=== PATIENT | female | born 1990 | race Caucasian/White ===

== ENCOUNTER 2023-04-07 07:50 | Emergency (ER) | payer SELFPAY ==
[2023-04-07 07:56] VITALS: BP 145/89; PULSE 128; RESP 24; TEMP 38.4; O2SAT 95; BMI 34.7
--- NOTE | 2023-04-07 08:04 | ED_ITS ---
HPI - General Adult General Chief complaint: Upper Respiratory Infection Stated complaint: SOB, VOMITING Time Seen by Provider: 04/07/23 07:54 Source: patient Mode of arrival: Wheelchair Limitations: no limitations History of Present Illness HPI narrative: Patient here with onset of vomiting and sore throat. Your children's also been sick with strep throat confirmed apparently. She is not currently on any antib iotics. 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 Symptoms started on Tuesday with a sore throat then she had aches and pains chills mild headache some cough. No purulent sputum. She has also had some nausea and vomiting but no diarrhea she has been running a fever. She did receive the influenza vaccine and initial COVID vaccinations but no booster. She is otherwise healthy. However she was admitted when she was she believes, to the hospital for pneumonia for 5 days. Related Data Allergies Allergy/AdvReac Type Severity Reaction Status Date / Time No Known Drug Allergies Allergy Verified 04/07/23 07:56 [facility] Social History Smoking status: Never smoker Exam Narrative Exam Narrative: Awake alert looks like she feels uncomfortable but not toxic or septic in appearance. Mentation cognition are completely normal. Skin there is good perfusion with no cyanosis no clamminess. Her lungs are completely clear no wheeze rales rhonchi. Heart sounds are normal. She does have a bronchitic type sounding cough but no bronchospasm. No rhinitis. She has no nuchal rigidity or meningeal irritation. Extremities show no evidence of DVT phlebitis or edema. Constitutional Vital Signs, click to edit/add: Last Vital Signs Temp 101.1 F H 04/07/23 08:54 Pulse 128 H 04/07/23 07:56 Resp 24 04/07/23 07:56 BP 145/89 H 04/07/23 07:56 Pulse Ox 96 04/07/23 08:24 O2 Del Method Room Air 04/07/23 08:24 Course Vital Signs Vital signs: Vital Signs Temperature 101.1 F H 04/07/23 07:56 Pulse Rate 128 H 04/07/23 07:56 Respiratory Rate 24 04/07/23 07:56 Blood Pressure 145/89 H 04/07/23 07:56 Pulse Oximetry 95 04/07/23 07:56 Oxygen Delivery Method Room Air 04/07/23 07:56 Temperature 101.1 F H 04/07/23 08:54 Pulse Rate 128 H 04/07/23 07:56 Respiratory Rate 24 04/07/23 07:56 Blood Pressure 145/89 H 04/07/23 07:56 Pulse Oximetry 96 04/07/23 08:24 Oxygen Delivery Method Room Air 04/07/23 08:24 Medical Decision Making MDM Narrative Medical decision making narrative: Patient's influenza testing is negative. Rapid strep is negative. Chest x-ray does not show any abnormalities. Her symptoms are consistent with a viral upper respiratory infection. I strongly recommend that she consider home COVID testing since she has other children at home. She did get the IV fluids here and felt symptomatically improved. I will also put her on clear fluids and prescribe Zofran for any nausea. Lab Data Labs: Lab Results 04/07/23 04/07/23 Range/Units 08:12 08:14 WBC 9.2 (4.0-11.0) 10^3/uL RBC 4.43 (4.20-5.40) 10^6/uL Hgb 12.6 (12.0-16.0) g/dL Hct 39.5 (36.0-48.0) % MCV 89.2 (81.0-99.0) fL MCH 28.4 (26.7-34.0) pg MCHC 31.9 (29.9-35.2) g/dL RDW 12.2 (11.0-15.0) % Plt Count 210 (150-450) 10^3/uL MPV 10.6 (9.5-13.5) fL Neut % (Auto) 84.5 H (43.0-75.0) % Lymph % (Auto) 6.8 L (20.5-60.0) % [place] % (Auto) 8.1 (1.7-12.0) % Eos % (Auto) 0.0 L (0.9-7.0) % Baso % (Auto) 0.2 (0.2-2.0) % Neut # (Auto) 7.8 H (1.4-6.5) 10^3/uL Lymph # (Auto) 0.6 L (1.2-3.8) 10^3/uL [place] # (Auto) 0.7 (0.3-0.8) 10^3/uL Eos # (Auto) 0.0 (0.0-0.7) 10^3/uL Baso # (Auto) 0.0 (0.0-0.1) 10^3/uL Abs Immat Gran (auto) 0.04 H (0.00-0.03) 10^3/uL Imm/Tot Granulo (auto) 0.4 (0.0-0.5) % Sodium 136 (136-145) mmol/L Potassium 3.4 L (3.5-5.1) mmol/L Chloride 98 (98-107) mmol/L Carbon Dioxide 29.8 (21.0-32.0) mmol/L Anion Gap 11.6 BUN 11.0 (7.0-18.0) mg/dL Creatinine 0.77 (0.55-1.02) mg/dL Est GFR ( Amer) >60 (>=60) Est GFR (Non-Af Amer) >60 (>=60) BUN/Creatinine Ratio 14.3 Glucose 151 H (74-106) mg/dL Calcium 8.7 (8.5-10.1) mg/dL Influenza Type A Ag Negative Influenza Type B Ag Negative Streptococcus Screen Negative Discharge Plan Discharge Chief Complaint: Upper Respiratory Infection Clinical Impression: Upper respiratory infection Patient Disposition: Home, Self-Care Time of Disposition Decision: 09:28 Additional Instructions: Consider home testing for COVID/Zofran for nausea/clear fluids for 24 hours, then slowly advancing diet. Off work Tuesday Stand Alone Forms: Portal Instructions Referrals: PATRICIA [Other] - 1 week
--- NOTE | 2023-04-07 08:12 | XR_ITS ---
The [address] [address] Patient Name: ANN-MARIE HANDY MRN: [id number] date: 1990 Sex: F Assigned Patient Location: ER Current Patient Location: ER Accession/Order Number: [id number] Exam Date: 04/07/2023 08:25 Report Date: 04/07/2023 08:57 At the request of: ELOINA GUARDADO Procedure: XR chest 1V EXAM: XR chest 1V HISTORY: Cough. COMPARISON: 09/01/2016 FINDINGS: There is a poor inspiratory volume with crowding of the bronchovascular markings bilaterally. The heart is not significantly enlarged. There is prominence of the interstitial markings. No significant pleural fluid collection is observed. There is no evidence of a consolidated infiltrate or pneumothorax. XR/XR chest 1V IMPRESSION: No evidence of an acute cardiopulmonary abnormality. Electronically authenticated by: APOLONIA CARLOS Date: 04/07/2023 08:57
[2023-04-07 08:24] VITALS: O2SAT 96
[2023-04-07 08:24] LABS: Basophils Percent Auto 0.2 % (0.2-2.0); Hematocrit 39.5 % (36.0-48.0); Hemoglobin 12.6 g/dL (12.0-16.0); Immature Granulocytes Abs Auto 0.04 10^3/uL (0.00-0.03); Immature Granulocytes Pct Auto 0.4 % (0.0-0.5); Lymphocytes Absolute Auto 0.6 10^3/uL (1.2-3.8); Lymphocytes Percent Auto 6.8 % (20.5-60.0); Mean Corpuscular HGB Conc 31.9 g/dL (29.9-35.2); Mean Corpuscular Hemoglobin 28.4 pg (26.7-34.0); Mean Corpuscular Volume 89.2 fL (81.0-99.0); Mean Platelet Volume 10.6 fL (9.5-13.5); Monocytes Absolute Auto 0.7 10^3/uL (0.3-0.8); Monocytes Percent Auto 8.1 % (1.7-12.0); Neutrophils Absolute Auto 7.8 10^3/uL (1.4-6.5); Neutrophils Percent Auto 84.5 % (43.0-75.0); Platelet Count 210 10^3/uL (150-450); Red Blood Count 4.43 10^6/uL (4.20-5.40); Red Cell Distribution Width 12.2 % (11.0-15.0); White Blood Count 9.2 10^3/uL (4.0-11.0)
[2023-04-07 08:29] LABS: Anion Gap 11.6; BUN Creatinine Ratio 14.3; Calcium 8.7 mg/dL (8.5-10.1); Carbon Dioxide 29.8 mmol/L (21.0-32.0); Chloride 98 mmol/L (98-107); Estimated GFR (African America >60 (>=60); Estimated GFR (Non-African Ame >60 (>=60); Glucose 151 mg/dL (74-106); Potassium 3.4 mmol/L (3.5-5.1); Sodium 136 mmol/L (136-145)
[2023-04-07] MEDS: ONDANSETRON PF 4 MG/2 ML VIAL IV (08:29)
[2023-04-07] MEDS: 0.9 % SODIUM CHLORIDE 1,000 ML 999 ML IV (08:29)
[2023-04-07 08:53] VITALS: TEMP 38.4
[2023-04-07] MEDS: ACETAMINOPHEN 500 MG TABLET 1000 MG PO (08:53)
[2023-04-07 08:54] VITALS: TEMP 38.4
[2023-04-07] MEDS: IBUPROFEN 600 MG TABLET PO (08:54)
[2023-04-07 09:00] LABS: Influenza Virus A Antigen Negative; Influenza Virus B Antigen Negative; Internal Control Within Normal Limits; Strep A Antigen Screen Negative
[2023-04-07 09:23] VITALS: PULSE 124; O2SAT 95
[2023-04-07 09:46] VITALS: PULSE 118; RESP 20; TEMP 37.7; O2SAT 96
== END 2023-04-07 09:54 | disposition home or self-care (01) ==
PROVIDERS: Emergency Provider Emergency Medicine Emergency Medical Services
DX: J06.9 Acute upper respiratory infection, unspecified (principal)
CPT/HCPCS: 36415; 71045; 80048; 85025; 87070; 87804; 87880; 96361; 96374; 99284

== ENCOUNTER 2023-04-09 13:41 | Emergency (ER) | payer SELFPAY ==
--- OUTSIDE RECORDS SUMMARY | 2023-04-09 13:47 | XMS_ITS | CCD ---
Author Name Unknown Address [address] [place] [address] Organization [facility] Care Team Providers Care Nutrition Aides Teacher Name Role Phone JAIDEN TOTH Admitting Unavailable JAIDEN TOTH Attending Unavailable JOSE RAMON HORN Consulting Unavailable JAIDEN TOTH Consulting Unavailable JAIDEN TOTH Admitting Unavailable JAIDEN TOTH Attending Unavailable CRISTIAN HINOJOSA Primary Care Unavailable JAIDEN TOTH Consulting Unavailable JAIDEN TOTH Admitting Unavailable JAIDEN TOTH Attending Unavailable JAIDEN TOTH Consulting Unavailable JAIDEN TOTH Admitting Unavailable JAIDEN TOTH Attending Unavailable JAIDEN TOTH Primary Care Unavailable JOSE RAMON HORN Consulting Unavailable JAIDEN TOTH Consulting Unavailable JAIDEN TOTH Admitting Unavailable JAIDEN TOTH Attending Unavailable JAIDEN TOTH Consulting Unavailable CELSA MINER Consulting Unavailable JAIDEN TOTH Procedure Practitioner Unavailab JAIDEN Waite Admitting Unavailable JAIDEN TOTH Attending Unavailable CRISTIAN HINOJOSA Primary Care Unavailable JAIDEN TOTH Admitting Unavailable JAIDEN TOTH Attending Unavailable CRISTIAN HINOJOSA Primary Care Unavailable JAIDEN TOTH Admitting Unavailable JAIDEN TOTH Attending Unavailable CRISTIAN HINOJOSA [facility] Care Unavailable JOSE RAMON HORN Consulting Unavailable JAIDEN TOTH Consulting Unavailable CRISTIAN HINOJOSA Primary Care Unavailable YOLANDA HUI Admitting UnavailYOLANDA Alvarez Attending UnavailYOLANDA Alvarez Consulting Unavailedison e JAIDEN TOTH Admitting Unavailable JAIDEN TOTH Attending Unavailable JAIDEN TOTH Consulting Unavailable JAIDEN TOTH Admitting Unavailable JAIDEN TOTH Attending Unavailable JAIDEN TOTH Primary Care Unavailable JAIDEN TOTH Consulting Unavailable APOLONIA BARNETT Consulting Unavailable Cecilia Perez Unavailable Unavailable Primary Care Provider Unavailabl e UNKNOWN, PROVIDER Referring Unavailable Allergies Allergy Classification Reported Allergen(s) Allergy Type Date of Onset Reaction(s) Facility (1 source) Penicillins Drug allergy (disorder) 09-15-2012 [facility] Repository (2 sources) Penicillin G Drug Allergy [facility] Other Medications Current Medications Medication Drug Class(es) Dates Sig (Normalized) Sig (Original) azithromycin 250 mg oral tablet (1 source) Macrolide Antimicrobial Start: 01-27-2022 Azithromycin 250 MG 2 tablet on the first day, then 1 tablet daily for 4 days Orally Once a day for 5 day(s) Jan, Active fluconazole 50 mg oral tablet (1 source) Azole Antifungal Start: 04-29-2021 Diflucan 50 MG 1 tablet Orally as directed Take 1 tablet p.o. at onset of symptoms, repeat in 7 days. Apr, Active nitrofurantoin, macrocrystals 25 mg / nitrofurantoin, monohydrate 75 mg oral capsule (1 source) Nitrofuran Antibacterial Start: 04-29-2021 take 1 capsule by mouth every twelve hours Macrobid 100 MG 1 cap(s) Orally bid for 5 day(s) Apr, Active phenazopyridine hydrochloride 200 mg oral tablet (1 source) Start: 04-29-2021 take 1 tablet by mouth every eight hours Pyridium 200 MG 1 tablet after meals Orally Three times a day for 2 day(s) Apr, Active predniSONE 20 mg oral tablet (1 source) Start: 01-27-2022 take 1 tablet by mouth every twelve hours predniSONE 20 MG 1 tablet Orally 2 times a day for 5 day(s) Jan, Active Completed/Discontinued Medications Medication Drug Class(es) Dates Sig (Normalized) Sig (Original) albuterol 0.83 mg/ml inhalation solution (1 source) beta2-Adrenergic Agonist Start: 12-08-2018 Albuterol Sulfate (2.5 MG/3ML) 0.083% 3 ml as needed Inhalation Three times a day Dec, Not-Taking cefdinir 300 mg oral capsule (1 source) Cephalosporin Antibacterial Start: 12-08-2018 take 1 capsule by mouth every twelve hours Cefdinir 300 MG 1 capsule Orally every 12 hrs for 7 days Dec, Not-Taking cetirizine hydrochloride 10 mg oral tablet (1 source) Histamine-1 Receptor Antagonist Start: 11-09-2019 take 1 tablet by mouth every twenty-four hours Cetirizine HCl 10 MG 1 tablet Orally Once a day for 30 day(s) Nov, Not-Taking fluticasone propionate 0.05 mg/actuat metered dose nasal spray (2 sources) Corticosteroid Start: 12-08-2018 take 1 spray(s) nasal route once daily Fluticasone Propionate 50 MCG/ACT 1 spray in each nostril Nasally Once a day for 30 day(s) Nov, Not-Taking methylPREDNISolone 4 mg oral tablet (2 sources) Corticosteroid Start: 12-08-2018 Medrol (Roman) 4 MG half of daily dose in the morning with food and the rest at night with food Orally Nov, Not-Taking TB Test (2 sources) Start: 09-10-2014 TB Test Sep, 0.5 mL Problems Active Problems Problem Classification Problem Date Documented Date Episodic/Chronic Administrative/social admission (2 sources) Encounter for pre-employment examination; Translations: [Encounter for pre-employment examination] Onset: 04-05-2022 Episodic Anxiety disorders (1 source) Anxiety disorder, unspecified; Translations: [ANXIETY DISORDER UNSPECIFIED] Onset: 10-30-2018 Chronic Asthma (2 sources) Acute exacerbation of asthma; Translations: [Acute asthma exacerbation] Chronic Influenza (1 source) Influenza due to unidentified influenza virus with other respiratory manifestations; Translations: [FLU D/T UNIDENT FLU VIR RESP MANIF] Onset: 03-22-2019 Episodic Menstrual disorders (4 sources) Secondary amenorrhea; Translations: [SECONDARY AMENORRHEA] Onset: 03-13-2019 Chronic Mood disorders (1 source) Major depressive disorder, single episode, unspecified; Translations: [KAMARI DEPRESS D/O SINGLE EPIS UNS] Onset: 10-30-2018 Nausea and vomiting (1 source) Nausea with vomiting, unspecified; Translations: [NAUSEA WITH VOMITING UNSPECIFIED] Onset: 03-22-2019 Episodic Other complications of (4 sources) Other specified related conditions, first trimester; Translations: [OTH SPEC PREG RELATED COND 1ST TRI] Onset: 03-20-2019 Episodic Other complications of (1 source) Other specified related conditions, unspecified trimester; Translations: [OTH SPEC PREG RELATED COND UNS TRI] Onset: 04-26-2019 Episodic Other female genital disorders (1 source) Other specified noninflammatory disorders of vagina; Translations: [OTH SPEC NONINFLAMMATORY D/O VAGINA] Onset: 04-26-2019 Episodic Other and delivery including normal (6 sources) Encounter for supervision of normal , unspecified, second trimester; Translations: [Encounter for supervision of normal , unspecified, first trimester] Onset: 10-30-2018 Episodic Other screening for suspected conditions (not mental disorders or infectious disease) (4 sources) Encounter for screening for malignant neoplasm of cervix; Translations: [ENC SCREENING MALIG NEOPLASM CERV] Onset: 04-25-2019 Episodic Other upper respiratory infections (2 sources) Acute pharyngitis, unspecified; Translations: [Streptococcal pharyngitis] Episodic Residual codes; unclassified (1 source) 12 weeks gestation of ; Translations: [12 WEEKS GESTATION OF ] Onset: 03-22-2019 Residual codes; unclassified (1 source) 31 weeks gestation of ; Translations: [31 WEEKS GESTATION OF ] Onset: 09-07-2018 Residual codes; unclassified (1 source) 10 weeks gestation of ; Translations: [10 WEEKS GESTATION OF ] Onset: 03-15-2019 Residual codes; unclassified (1 source) 38 weeks gestation of ; Translations: [38 WEEKS GESTATION OF ] Onset: 10-30-2018 Past or Other Problems Problem Classification Problem Date Documented Da te Episodic/Chronic Abdominal pain (1 source) Unspecified abdominal pain; Translations: [UNSPECIFIED ABDOMINAL PAIN] Onset: 09-07-2018 Episodic Diabetes or abnormal glucose tolerance complicating ; childbirth; or the puerperium (8 sources) Gestational diabetes mellitus in , unspecified control; Translations: [Gestational diabetes mellitus in childbirth, unspecified control] Onset: 09-07-2018 Episodic Genitourinary symptoms and ill-defined conditions (2 sources) Dysuria; Translations: [Hematuria, unspecified] Onset: 04-29-2021 Resolved: 04-29-2021 Episodic OB-related trauma to perineum and vulva (1 source) First degree perineal laceration during delivery; Translations: [FIRST DEG PERINEAL LAC DUR DELIV] Onset: 10-30-2018 Episodic Other complications of ; puerperium affecting management of mother (1 source) Diseases of the respiratory system complicating childbirth; Translations: [DISEASES RESP SYS COMP CHILDBIRTH] Onset: 10-30-2018 Episodic Other complications of ; puerperium affecting management of mother (1 source) Other mental disorders complicating childbirth; Translations: [OTH MENTAL D/O COMP CHILDBIRTH] Onset: 10-30-2018 Episodic Other complications of (1 source) Other mental disorders complicating , third trimester; Translations: [OTH MENTAL D/O COMP PREG THIRD TRI] Onset: 09-07-2018 Episodic Other complications of (4 sources) Other specified diseases and conditions complicating , childbirth and the puerperium; Translations: [OTH DZ COMP PREG CHILDBIRTH PUERPER] Onset: 09-02-2018 Episodic Unclassified (1 source) Contact with and (suspected) exposure to covid-19 Z20.822 Urinary tract infections (1 source) Urinary tract infection, site not specified Onset: 04-29-2021 Resolved: 04-29-2021 Episodic Results Test Name Value Interpretation Reference Range Facility VZ Immunityon 04-07-2022 VZ Immunity 2.16 Normal >1.09 [facility] Comment on above: Result Comment: Interpretation: IMMUNE Reference Range: <0.91 Not Immune 0.91-1.09 Equivocal >1.09 Immune Performed By: #### V ZI #### [facility] [address] [place] [address] Ear Flap Binder: Matias Jones MD COVID/FLU RT-PCRon 2 SARS-CoV-2 (COVID-19) RNA TELLO+probe Ql (Unsp spec) Negative [facility] Other COVID/FLU RT-PCR Negative [facility] Other Quick Strepon 01-27-2022 S. pyogenes Org specific cx Ql (Throat) Positive [facility] Other Quick Strep [facility] Other Urinalysis - AUTOMATEDon Appearance (U) clear [facility] Other Bilirubin Ql (U) Negative [facility] Other Color (U) yellow [facility] Other Glucose Ql (U) Negative [facility] Other Hemoglobin Ql (U) trace [facility] Other Ketones Ql (U) Negative [facility] Other Leukocyte esterase Test strip Ql (U) small [facility] Other Nitrite Ql (U) Negative [facility] Other pH (U) 7.5 [pH] [facility] Other Protein Ql (U) Negative [facility] Other Specific gravity (U) [Rel density] 1.025 [facility] Other Urobilinogen (U) [Mass/Vol] 0.2 mg/dL [facility] Other Urinalysis - AUTOMATED [facility] Other Urine Cultureon 04-29-2021 Bacteria identified Cx Nom (U) Reason for Exam Dysuria Urine >100,000 colonies/ml mixed bacterial skin contaminants 2 Days PERFORMED BY: [place] [address] PATHOLOGIST CARE TEAM ASSISTANT JU BAR M.D[facility] Comment on above: Performed By: #### C UU #### [address] US PREG CERVICAL LENGTHon US PREG CERVICAL LENGTH PROCEDURE: US PREG ANATOMY SINGLE, US PREG CERVICAL LENGTH, 06/01/2019 2:56 PM EDT. INDICATIONS: Second trimester . anatomic assessment. Transvaginal evaluation of cervix and . 4 para 3 COMPARISON: 03/13/2019 FINDINGS: EVALUATION Number of Fetuses: 1 Presentation: Cephalic Heart Rate: 152 bpm. Placenta: Anterior placenta, no previa or abruption, inferior margin 7.6 cm above the cervical os. Placenta cord insertion appropriate Amniotic fluid volume: Appropriate CERVIX LENGTH: 4.4 cm by transvaginal assessment, closed GESTATIONAL AGE: Provided gestational age: 22 weeks 0 days Provided MOUNA: 10/05/2019 Sonographic gestational age: 22 weeks 2 days +/- 1 week 4 days Sonographic MOUNA: 10/03/2019 BIOMETRY: BPD: 5.3 cm, 22 weeks 0 days, 44 percentile. HC: 19.9 cm, 22 weeks 0 days, 39 percentile. AC: 17.9 cm, 22 weeks 5 days, 68 percentile. FL: 3.8 cm, 22 weeks 1 day, 46 percentile. Estimated weight 505 g +/- 76 g. 67 percentile Growth ratios: Normal CI: 74.5 FL/BPD: 72.6 HC/AC: 1.11 FL/AC: 21.3 FL/HC: 19.2 ANATOMY: HEAD, FACE, NECK: Lateral ventricle: Normal Appearance Choroid plexus: Normal Appearance Midline falx: Normal Appearance Cavum: Normal Appearance Cerebellum: Normal Appearance Cisterna Magna: Normal Appearance Facial features: Normal Appearance CHEST: 4 chamber heart: Normal Appearance LVOT/RVOT: Normal Appearance Diaphragm: Normal appearance ABDOMEN: Stomach: Normal Appearance Abdominal situs: Normal Appearance Kidneys: Normal Appearance Bladder: Normal Appearance Cord insertion: Normal Appearance Cord: 3 vessels Spine: Normal Appearance EXTREMITIES: Lower Extremities: Normal Appearance Upper Extremities: Normal Appearance MATERNAL FINDINGS: No maternal adnexal abnormality. IMPRESSION: 1. Living intrauterine , cephalic presentation. 2. Composite sonographic age 22 weeks 2 days +/- 1 week 4 days. 3. Estimated weight 504 g, 67 percentile, growth ratios normal. 4. No anatomic abnormality is evident. 5. 4.6 cm transvaginal cervical length, closed. Electronically authenticated by: APOLONIA BARNETT Date: 2019-06-01 16:18 Normal [facility] PAP ACOG PANEL 3: 21 to 29on 05-01-2019 Age Gdln ACOG Testing - Normal [facility] Comment on above: Performed By: #### U CHLOE THOMAS #### [facility] [address] [address] Kellen Moyer Chlamydia, Nuc. Acid Amp Negative Normal Negative [facility] Comment on above: Result Comment: Perf ormed at: =G Performed By: #### U ACSIND, UMICRO #### [facility] [address] [place] [address] Kellen Moeyr DIAGNOSIS: Comment Abnormal [facility] Comment on above: Result Comment: EPIT HELIAL CELL ABNORMALITY. ATYPICAL SQUAMOUS CELLS OF UNDETERMINED SIGNIFICANCE (ASC-US). Performed at: WB Performed By: #### U WILLIAM, UMICRO #### [facility] [address] [place] [address] Comfort Electronically signed by: Comment Normal [facility] Comment on above: Result Comment: Barron Liu MD, Pathologist Performed at: WB Performed By: #### U WILLIAM, UMICRO #### [facility] [address] [place], [place] [address] Gonococcus, Nuc. Acid Amp Negative Normal Negative [facility] Comment on above: Result Comment: Perf ormed at: =G Performed By: #### U WILLIAM, UMICRO #### [facility] [address] [place], [place] [address] HPV Aptima Negative Normal Negative [facility] Comment on above: Result Comment: This nucleic acid amplification test detects fourteen high-risk HPV types (16,18,31,33,35,39,45,51,52,56,58,59,66,68) without differentiation. Performed By: #### U ACSSARIKA, UMICRO #### [facility] [address] [place] [address] Comfort Methodology: Comment Normal [facility] Comment on above: Result Comment: This liquid based ThinPrep(R) pap test was screened with the use of an image guided system. Performed at: WB Performed By: #### U ACSSARIKA, UMICRO #### [facility] [address] [place], [place] [address] Note: Comment Normal [facility] Comment on above: Result Comment: The Pap smear is a screening test designed to aid in the detection of premalignant and malignant conditions of the uterine cervix. It is not a diagnostic procedure and should not be used as the sole means of detecting cervical cancer. Both false-positive and false-negative reports do occur. . Performed at: WB Performed By: #### U ACSSARIKA, UMICRO #### [facility] [address] [address] Kellen Moyer Pathologist Provided ICD10 Comment Normal [facility] Comment on above: Result Comment: [id number] Performed at: WB Performed By: #### U ACSSARIKA, UMICRO #### [facility] [address] [address] Kellen Moyer Performed by: Comment Normal [facility] Comment on above: Result Comment: Nieves Cameron, Marketing Communications Coordinator (ASCP) Performed at: WB Performed By: #### U ACSSARIKA UMICRO #### [facility] [address] [address] Kellen Moyer Reflex Criteria: Comment Normal [facility] Comment on above: Result Comment: See below for HPV testing results. . Performed at: WB Performed By: #### U ACSSARIKA UMICRO #### [facility] [address] [address] Kellen Moyer Specimen adequacy: Comment Normal [facility] Comment on above: Result Comment: Sati sfactory for evaluation. Endocervical and/or squamous metaplastic cells (endocervical component) are present. Areas of partially obscuring inflammatory exudate are present. Performed at: WB Performed By: #### U ACSSARIKA UMICRO #### [facility] [address] [address] Kellen Moyer . . Normal [facility] Comment on above: Result Comment: Perf ormed at: WB Performed By: #### U ACSSARIKA, UMICRO #### [facility] [address] [address] Kellenrachel Moyer VAGINITIS/VAGINOSIS DNA PROB [place] 04-27-2019 Kelsey species Negative Normal Negative [facility] Comment on above: Performed By: #### U ACSSARIKA UMICRO #### [facility] [address] [address] Kellenrachel Moyer Gardnerella vaginalis Positive Abnormal Negative [facility] Comment on above: Performed By: #### U ACSSARIKA UMICRO #### [facility] [address] [place] [address] Kellen Comfort Trichomonas vaginalis Negative Normal Negative [facility] Comment on above: Performed By: #### U CHLOE THOMAS #### [facility] [address] [place] [address] Kellen Comfort CULTURE URINEon 03-21-2019 CULTURE URINE Culture Observations : Moderate growth of mixed genital juan.No potential pathogens seen. Normal [facility] Comment on above: Performed By: #### U CHLOE THOMAS #### [facility] [address] [place] [address] Kellen Comfort ER URINE PROFILEon 0 Bilirubin [Mass/Vol] Negative Normal NEGATIVE [facility] Comment on above: Performed By: #### CHLOE BOTELLO #### [facility] [address] [place] [address] Kellen Comfort BLOOD Negative Normal NEGATIVE [facility] Comment on above: Performed By: #### CHLOE BOTELLO #### [facility] [address] [place] [address] Kellen Comfort Clarity (U) CLEAR Normal [facility] Comment on above: Performed By: #### CHLOE BOTELLO #### [facility] [address] [place] [address] Kellen Comfort Color (U) LT. YELLOW Normal YELLOW [facility] Comment on above: Performed By: #### U CHLOE THOMAS #### [facility] [address] [place] [address] Kellen Comfort ERUAHD A micrscopic examination will be performed if indicated. Normal [facility] Comment on above: Performed By: #### U CHLOE THOMAS #### [facility] [address] [place] [address] Kellen Comfort Glucose [Mass/Vol] Negative Normal NEGATIVE [facility] Comment on above: Performed By: #### U CHLOE THOMAS #### [facility] [address] [place] [address] Kellen Comfort Ketones Ql (U) TRACE Normal NEGATIVE [facility] Comment on above: Performed By: #### U ACSSARIKA UMICRO #### [facility] [address] [address] Kellen Comfort Nitrite Ql (U) Negative Normal NEGATIVE [facility] Comment on above: Performed By: #### U ACSSARIKA, UMICRO #### [facility] [address] [address] Kellen Comfort pH (Bld) 6.0 Normal 5-9 [facility] Comment on above: Performed By: #### U ACSSARIKA, UMICRO #### [facility] [address] [address] Kellen Comfort Protein (U) [Mass/Vol] Negative Normal [facility] Comment on above: Performed By: #### U ACSSARIKA UMICRO #### [facility] [address] [place] [address] Kellen Comfort SPEC GRAVITY >=1.030 Normal 1.005-<=1.025 [facility] Comment on above: Performed By: #### U ACSSARIKA UMICRO #### [facility] [address] [address] Kellen Moyer UR MICRO IND INDICATED Normal [facility] Comment on above: Performed By: #### U ACSSARIKA UMICRO #### [facility] [address] [address] Kellenrachel Moyer Urobilinogen Qn (U) 0.2 EU/dl Normal [facility] Comment on above: Performed By: #### U ACSSARIKA, UMICRO #### [facility] [address] [address] Kellen Comfort WBC (Bld) [#/Vol] SMALL Normal NEGATIVE [facility] Comment on above: Performed By: #### U ACSSARIKA, UMICRO #### [facility] [address] [address] Kellen Moyer URINE MICROSCOPIC ONLYon AMORPHOUS CRYSTALS FEW Normal [facility] Comment on above: Performed By: #### U ACSIND, UMICRO #### [facility] [address] [id number] Kellen Comfort Bacteria LM.HPF (Urine sed) [#/Area] MODERATE Normal NONE SEEN [facility] Comment on above: Performed By: #### U ACSSARIKA UMICRO #### [facility] [address] [id number] Kellen Comfort CAST NONE SEEN Normal NONE SEEN [facility] Comment on above: Performed By: #### U ACSSARIKA UMICRO #### [facility] [address] [address] Kellen Comfort Crystals LM Nom (Urine sed) SEEN Normal NONE SEEN [facility] Comment on above: Performed By: #### U ACSSARIKA UMICRO #### [facility] [address] [place] [address] Kellen Comfort CULTURE INDICATED Normal [facility] Comment on above: Performed By: #### U WILLIAM UMICRO #### [facility] [address] [place] [address] Kellen Comfort Epithelial cells LM.HPF (Urine sed) [#/Area] MODERATE Normal [facility] Comment on above: Performed By: #### U WILLIAM UMICRO #### [facility] [address] [place] [address] Kellen Comfort MUCOUS TRACE Normal NONE SEEN [facility] Comment on above: Performed By: #### U ACSSARIKA UMICRO #### [facility] [address] [place], [place] [id number] Kellen Comfort RBC (U) [#/Vol] 5-10 Normal 0-2 [facility] Comment on above: Performed By: #### U ACSSARIKA UMICRO #### [facility] [address] [place], [place] [id number] Kellen Comfort WBC (Bld) [#/Vol] 50-75 Normal NONE SEEN [facility] Comment on above: Performed By: #### U ACSSARIKA UMICRO #### [facility] [address] [place], [place] [id number] Kellen Comfort CULTURE THROATon 03-20-2019 CULTURE THROAT Culture Observations : Normal respiratory juan Normal [facility] Comment on above: Performed By: #### U WILLIAM UMICRO #### [facility] [address] [place] [address] Kellen Moyer INFLUENZA A AND B AGon 03-20 INFLUBNEGH SEE BELOW Normal [facility] Comment on above: Result Comment: Nega tive for Flu B protein antigen. Infection due to Flu B cannot be ruled out. Flu B antigen in the sample may be below the detection limit of the test. Performed By: #### U WILLIAM UMICRO #### [facility] [address] [place] [address] Kellen Moyer INFLUENZA A AG Positive Normal NEGATIVE SEE COMMENT [facility] Comment on above: Performed By: #### U WILLIAM UMICRO #### [facility] [address] [place] [address] Kellen Moyer INFLUENZA B AG Negative Normal NEGATIVE SEE COMMENT [facility] Comment on above: Performed By: #### U WILLIAM UMICRO #### [facility] [address] [place] [address] Kellen Moyer INFLUPOSH SEE BELOW Normal [facility] Comment on above: Result Comment: NOTE : Live attenuated influenzae vaccine viruses can cause a positive result for a rapid influenza diagnostic test if administered up to 7 days prior to rapid testing. Performed By: #### U WILLIAM UMICRO #### [facility] [address] [place] [address] Kellen Moyer INTERNAL CONTROLS Within Normal Limits Normal Wi thin Normal Limits [facility] Comment on above: Performed By: #### U WILLIAM UMICRO #### [facility] [address] [place] [address] Kellen Moyer STREPT SCREENon 03-20-2019 STREP SCREEN A Negative Normal NEGATIVE [facility] Comment on above: Performed By: #### U ACSSARIKA UMICRO #### [facility] [address] [place] [address] Kellen Moyer US PREG <14 WKSon 03-13-2019 US PREG <14 WKS Patient: ANN-MARIE HANDY Exam Date: 03/13/2019 : 1990 Gender:F Ordering : DR. JAIDEN TOTH . Admission #: [id number] Family : Order #: [id number] CLICK HERE TO VIEW EXAM RADIOLOGY REPORT PROCEDURE: ULTRASOUND < 14 WEEKS COMPARISON: None. INDICATIONS: Secondary physiologic amenorrhea; 10w4d single TECHNIQUE: Transabdominal sonographic examination for obstetrical and evaluation. FINDINGS: GESTATIONAL SAC: Present and normal appearing. POLE: Present and normal appearing. YOLK SAC: Present. CARDIAC ACTIVITY: Present. UTERUS: Normal. OVARIES: Right: Normal. Left: Normal. CERVIX: 4.4 cm in length. Closed. CUL-DE-SAC: Normal. OTHER: None. AGE BY LMP: 10 weeks, 4 days MOUNA BY LMP: October 05, 2019 AGE BY US CRL: 11 weeks, 0 days MOUNA BY US CRL: October 02, 2019 CONCLUSION: 1. Single live intrauterine . Dictated by: Jose Ramon Horn M.D. on 03/13/2019 at 10:10 Approved by: Jose Ramon Horn M.D. on 03/13/2019 at 10:13 Normal [facility] CBC AUTO DIFFon 10-19-2018 Basophils (Bld) [#/Vol] 0.0 103/ul Normal 0.0-0.1 [facility] Comment on above: Performed By: #### U ACSSARIKA [facility] #### [facility] [address], [place] [address] Kellen Comfort Basophils/100 WBC (Bld) 0.3 % Normal 0.2-2.0 [facility] Comment on above: Performed By: #### U ACSRENE BAUMICRO #### [facility] [address], [place] [address] Kellen Comfort Eosinophils (Bld) [#/Vol] 0.1 103/ul Normal 0.0-0.7 [facility] Comment on above: Performed By: #### U [facility]SSARIKA [facility] #### [facility] [address], [place] [address] Kellen Comfort Eosinophils/100 WBC (Bld) 1.1 % Normal 0.9-7.0 [facility] Comment on above: Performed By: #### CHLOE BOTELLO #### [facility] [address] [place] [address] Kellen Comfort Erythrocyte distribution width (RBC) [Ratio] 11.9 % Normal 11.0-15.0 [facility] Comment on above: Performed By: #### CHLOE BOTELLO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 04-05-2022 End: 04-05-2022 Subsequent hospital visit by physician [facility] Start: 01-27-2022 End: 01-27-2022 ambulatory Cecilia Ana Other [facility] Other Start: 01-27-2022 Office outpatient vi sit 25 minutes Cecilia Ana [facility] Start: 04-29-2021 End: 04-29-2021 ambulatory Cecilia Ana Other [facility] Other Start: 04-29-2021 Office outpatient vi sit 25 minutes Cecilia Ana [facility] Start: 06-01-2019 End: 06-02-2019 Patient encounter procedure JAIDEN TOTH Facility:[facility] Start: 04-25-2019 End: 04-25-2019 Patient encounter procedure JAIDEN TOTH Facility:[facility] Start: 03-20-2019 End: 03-21-2019 Patient encounter procedure CRISTIAN MICAELA Facility:[facility] Start: 03-13-2019 End: 03-14-2019 Patient encounter procedure JAIDEN TOTH Facility:[facility] Start: 11-22-2018 End: 11-22-2018 Patient encounter procedure JAIDEN TOTH Facility:[facility] Start: 11-09-2018 Patient encounter procedure JAIDEN TOTH Facility:[facility] Start: 10-18-2018 End: 10-20-2018 Evaluation and management of inpatient JAIDEN TOTH Facility:[facility] Start: 10-11-2018 End: 10-12-2018 Patient encounter procedure JAIDEN TOTH Facility:[facility] Start: 10-03-2018 End: 10-03-2018 Patient encounter procedure JAIDEN TOTH Facility:[facility] Start: 09-02-2018 End: 09-03-2018 Patient encounter procedure JAIDEN TOTH Facility:[facility] Start: 06-12-2018 End: 06-13-2018 Patient encounter procedure JAIDEN TOTH Facility:[facility] Procedures Date Procedure Procedure Detail Performing Clinician Start: 10-18-2018 Delivery of Products of Conception, External Approach JAIDEN TOTH Start: 10-18-2018 Drainage of Amniotic Fluid, Therapeutic from Products of Conception, Via Natural or Artificial Opening JAIDEN TOTH Start: 10-18-2018 Repair Perineum Skin , External Approach JAIDEN TOTH Plan of Treatment Date Care Activity Detail Author Start: 09-07-2021 Influenza vaccination Flu vaccine (# 1) [facility] Start: 04-15-2010 DTaP/Tdap/Td vaccine (1 - Tdap) DTaP/Tdap/Td vaccine (1 - Tdap) [facility] Start: 1990 COVID-19 Vaccine (#1) COVID-19 Vacci ne (#1) [facility] End: 04-05-2022 Varicella Zoster Antibody, IgG [facility] Work Phone: Comment on above: Once for 1 Occurrenc es starting 04/05/2022 until 04/05/2022 Payers Date Payer Category Payer Unknown [id number] 2.16.84 [id number] 1990 Unknown [id number] 2.16.84 [id number] 1990 Unknown [id number] 2.16.84 [id number] 1990 Unknown [id number] 2.16.84 [id number] 1990 Unknown [id number] 2.16.84 [id number] 1990 Unknown [id number] 2.16.84 [id number] 1990 Unknown [id number] 2.16.84 [id number] 1990 Unknown [id number] 2.16.84 [id number] 1990 Unknown [id number] 2.16.84 [id number] 1990 Unknown [id number] 2.16.84 [id number] 1990 Unknown [id number] 2.16.84 [id number] 1958 Unknown [id number] Unknown [id number] 2.1 [id number] Social History Date Type Detail Facility Sex Assigned At [facility] Other Tobacco smoking status MNIS Tobacco smoking consumption unknown [facility] Phone: Start: 1990 Sex Assigned At Not on file [facility] Phone: Evaluation note 01-27-2022 Note Date & Type Note Facility 01-27-2022 Evaluation note Encounter Date Diagnosis Assessment Notes Jan, Sore throat (ICD-10 - J02.9) Strep throat material was printed Drink plenty fluids, get plenty of rest. Take the azithromycin as prescribed until gone. Take Tylenol or Motrin as needed for aches pains or fevers. Consider drinking warm tea with honey for comfort. Follow-up with your family physician if no improvement in 2 to 3 days. Jan, Strep pharyngitis (ICD-10 - J02.0) Jan, Contact with and (suspected) exposure to covid-19 (ICD-10 - Z20.822) [facility] Other Evaluation note 04-29-2021 Note Date & Type Note Facility 04-29-2021 Evaluation note Encounter Date Diagnosis Assessment Notes Apr, Dysuria (ICD-10 - R30.0) Apr, Urinary tract infection, site not specified (ICD-10 - N39.0) Drink plenty fluids, get plenty of rest. Take the Macrobid and Pyridium and Diflucan as prescribed until gone. Tylenol Motrin as needed for aches pains or fevers. Follow-up with your family physician if no improvement in 2 to 3 days. Apr, Hematuria, unspecified (ICD-10 - R31.9) [facility] Other History general Narrative - Reported Note Date & Type Note Facility History general Narrative - Reported Type Surgical History salpingectomy Hospitalization History childbirth [facility] Other Summary Purpose Family History No Family History Records FoundNo Family History Records FoundNo Family History Records Found Advance Directives No Advanced Directives Records FoundNo Advanced Directives Records FoundNo Advanced Directives Records Found Additional Source Comments INFORMATION SOURCE (unrecogn ized section and content) DATE CREATED AUTHOR 06/04/2019 [facility] DATE CREATED AUTHOR AUTHOR'S ORGANIZ ATION 05/02/2021 [facility] DATE CREATED AUTHOR AUTHOR'S ORGANIZ ATION 04/09/2022 [facility] REASON FOR VISIT (unrecogniz ed section and content) DYSURIACOUGH, CONGESTION, SO RE THROAT FOR RECORDS PERTAINING TO PATIENTS WHO ARE OR HAVE BEEN ENROLLED IN A CHEMICAL DEPENDENCY/SUBSTANCEABUSE PROGRAM, SOME INFORMATION MAY BE OMITTED. This clinical summary was aggregated from multiple sources. Caution should be exercised in using it in the provision of clinical care. This summary normalizes information from multiple sources, and as a consequence, information in this document may materially change the coding, format and clinical context of patient data. In addition, data may be omitted in some cases. CLINICAL DECISIONS SHOULD BE BASED ON THE PRIMARY CLINICAL RECORDS. [employer] provides no warranty or guarantee of the accuracy or completeness of information in this document.
[2023-04-09 13:56] VITALS: BP 127/85; PULSE 100; RESP 16; TEMP 36.7; O2SAT 96; BMI 34.7
[2023-04-09 14:58] VITALS: BP 140/84; PULSE 103; RESP 18; O2SAT 98
--- NOTE | 2023-04-09 15:15 | ED.EAR1 ---
Documented by User: MELANY Dukes 04/09/23 15:18 HPI - Ear Problem General Chief complaint: Ear Stated complaint: RIGHT EAR PAIN COVID+ Time Seen by Provider: 04/09/23 15:06 Source: patient Mode of arrival: walk-in Limitations: no limitations History of Present Illness HPI Narrative: Patient is a 32-year-old female who presents to the emergency department for right ear pain. She was seen in this emergency department 2 days ago for upper respiratory symptoms. She took a home COVID test that was positive. She was negative for influenza which was her primary concern. She states today she is having increasing pain to the right ear. She has been using Motrin and Tylenol at home without improvement. She continues to have intermittent fevers. She has no concern for . Related Data Previous Rx's Medication Instructions Recorded agujfqtvumbzfty-hmitcqatyzyqtav-JM 10 ml PO Q6H PRN cold symptoms 04/09/23 2 mg-30 mg-10 mg/5 mL oral syrup #200 mL (Bromfed DM) promethazine 25 mg tablet 25 mg PO Q6H PRN nausea and 04/09/23 vomiting #12 tabs Allergies Allergy/AdvReac Type Severity Reaction Status Date / Time No Known Drug Allergies Allergy Verified 04/07/23 07:56 Review of Systems ROS Constitutional Reports: fever and chills Ears, nose, mouth, and throat Reports: throat pain and nasal congestion Cardiovascular Denies: chest pain Respiratory Reports: cough; Denies: shortness of breath Gastrointestinal Denies: nausea, vomiting or diarrhea Musculoskeletal Denies: back pain Integumentary/Breast Denies: rash Neurological Reports: headache Endocrine Denies: excessive urination Hematologic/Lymphatic Denies: easy bruising PFSH PFSH Social History Smoking status: Never smoker Exam Narrative Exam Narrative: Gen.: Awake, alert, in no distress Head: Normocephalic, atraumatic ENT: Moist mucous membranes, Left TM is clear with right TM bulging, no significant erythema or injection. Left conjunctive is minimally injected. No crusting or drainage noted Respiratory: No respiratory distress, lungs clear bilaterally Cardio: Regular rate and rhythm Extremities: Moves extremities equally Psych: Normal mood and affect Neuro: No focal neuro deficit Skin: Warm, dry, intact Constitutional Vital Signs, click to edit/add: Last Vital Signs Temp 98.0 F 04/09/23 13:56 Pulse 103 H 04/09/23 14:58 Resp 18 04/09/23 14:58 BP 140/84 04/09/23 14:58 Pulse Ox 98 04/09/23 14:58 O2 Del Method Room Air 04/09/23 14:58 Course Vital Signs Vital signs: Vital Signs Temperature 98.0 F 04/09/23 13:56 Pulse Rate 100 H 04/09/23 13:56 Respiratory Rate 16 04/09/23 13:56 Blood Pressure 127/85 04/09/23 13:56 Pulse Oximetry 96 04/09/23 13:56 Oxygen Delivery Method Room Air 04/09/23 13:56 Temperature 98.0 F 04/09/23 13:56 Pulse Rate 103 H 04/09/23 14:58 Respiratory Rate 18 04/09/23 14:58 Blood Pressure 140/84 04/09/23 14:58 Pulse Oximetry 98 04/09/23 14:58 Oxygen Delivery Method Room Air 04/09/23 14:58 Medical Decision Making MDM Narrative Medical decision making narrative: No evidence of secondary otitis media, likely fluid backup from sinuses as the patient is very congested in the nose. She is placed on Bromfed-DM, Decadron given in the ER and discharged home with Phenergan and Bromfed-DM prescriptions. Follow-up with PCP and return to the ER if symptoms change or worsen Medical Records Medical records reviewed: Yes I reviewed the patient's medical records Discharge Plan Discharge Chief Complaint: Ear Clinical Impression: COVID-19, Acute pain of right ear Patient Disposition: Home, Self-Care Time of Disposition Decision: 15:13 Condition: Good Mode of Transportation: Private Vehicle Prescriptions / Home Meds: New promethazine 25 mg tablet 25 mg PO Q6H PRN (Reason: nausea and vomiting) Qty: 12 0RF huxozdnthhoratp-tfjogfquc-KL [Bromfed DM] 2-30-10 mg/5 mL syrup 10 ml PO Q6H PRN (Reason: cold symptoms) Qty: 200 0RF Instructions: Earache (ED), How to Recover from COVID-19 at Home (ED) Referrals: PATRICIA [Other] - 1 week Discharge Date/Time: 04/09/23 15:21 Stand Alone Forms: Portal Instructions Documented by User: Neftali Rey MD 04/09/23 19:44 HPI - Ear Problem General Chief complaint: Ear Stated complaint: RIGHT EAR PAIN COVID+ Time Seen by Provider: 04/09/23 15:06 Related Data Previous Rx's Medication Instructions Recorded amgsrhhwclwnwhb-odhhnlqtytciskp-HK 10 ml PO Q6H PRN cold symptoms 04/09/23 2 mg-30 mg-10 mg/5 mL oral syrup #200 mL (Bromfed DM) promethazine 25 mg tablet 25 mg PO Q6H PRN nausea and 04/09/23 vomiting #12 tabs Allergies Allergy/AdvReac Type Severity Reaction Status Date / Time No Known Drug Allergies Allergy Verified 04/07/23 07:56 PFSH PFSH Social History Smoking status: Never smoker Exam Constitutional Vital Signs, click to edit/add: Last Vital Signs Temp 98.0 F 04/09/23 13:56 Pulse 103 H 04/09/23 14:58 Resp 18 04/09/23 14:58 BP 140/84 04/09/23 14:58 Pulse Ox 98 04/09/23 14:58 O2 Del Method Room Air 04/09/23 14:58 Course Vital Signs Vital signs: Vital Signs Temperature 98.0 F 04/09/23 13:56 Pulse Rate 100 H 04/09/23 13:56 Respiratory Rate 16 04/09/23 13:56 Blood Pressure 127/85 04/09/23 13:56 Pulse Oximetry 96 04/09/23 13:56 Oxygen Delivery Method Room Air 04/09/23 13:56 Temperature 98.0 F 04/09/23 13:56 Pulse Rate 103 H 04/09/23 14:58 Respiratory Rate 18 04/09/23 14:58 Blood Pressure 140/84 04/09/23 14:58 Pulse Oximetry 98 04/09/23 14:58 Oxygen Delivery Method Room Air 04/09/23 14:58 Medical Decision Making MDM Narrative Medical decision making narrative: No evidence of secondary otitis media, likely fluid backup from sinuses as the patient is very congested in the nose. She is placed on Bromfed-DM, Decadron given in the ER and discharged home with Phenergan and Bromfed-DM prescriptions. Follow-up with PCP and return to the ER if symptoms change or worsen I, Dr Rey, have reviewed the above progress note and course of action in the ER; agree with the above. I have gone over history and physical, and discussed disposition and treatment plan with the patient. Discharge Plan Discharge Chief Complaint: Ear Clinical Impression: COVID-19, Acute pain of right ear Patient Disposition: Home, Self-Care Time of Disposition Decision: 15:13 Condition: Good Mode of Transportation: Private Vehicle Prescriptions / Home Meds: New promethazine 25 mg tablet 25 mg PO Q6H PRN (Reason: nausea and vomiting) Qty: 12 0RF kicczcpqjhwuuft-xczlvbjwj-IX [Bromfed DM] 2-30-10 mg/5 mL syrup 10 ml PO Q6H PRN (Reason: cold symptoms) Qty: 200 0RF Instructions: Earache (ED), How to Recover from COVID-19 at Home (ED) Referrals: PATRICIA [Other] - 1 week Discharge Date/Time: 04/09/23 15:21 Stand Alone Forms: Portal Instructions
[2023-04-09] MEDS: DEXAMETHASONE SOD PHOS 10 MG/ML VIAL PO (15:19)
== END 2023-04-09 15:21 | disposition home or self-care (01) ==
PROVIDERS: Emergency Provider Emergency Medicine
DX: U07.1 COVID-19 (principal); H92.01 Otalgia, right ear
CPT/HCPCS: 99283; J1100

== ENCOUNTER 2024-07-03 08:47 | Outpatient (OUT) | payer OTHER, MEDICAID, SELFPAY ==
--- OUTSIDE RECORDS SUMMARY | 2024-07-03 08:53 | XMS_ITS | Patient Health Record ---
Author Organization [facility] vices Address [address] [place], [place] [address] Care Team Providers Care Yoga Teacher Name Role Phone Marisol Phillips Unavailable [phone] Reason For Referral No Information Immunizations Vaccine Route Administration Date Status Comme nts *Tdap (Adacel)-VFC IM Intramuscular 07/24/2019 Administered Status:Complete ,Reason:Given or N/A Problems Problem Type SNOMED Code ICD Code Onset Dates Problem Status W/U Status Risk Notes Problem Obesity (824271988) Class 2 obesity in adult (E66.9) Active confirmed Description:Cl ass 2 Obesity in Adult (BMI 35.0-39.9) Problem Irregular periods (23701973) Irregular periods (N92.6) Active confirmed Comment:1. R TC 2-3months BC pill recheck, Problem Acute sinusitis (92584871) Sinusitis, acute (J01.90) Active confirmed Comment:More than 10 days aof active symptoms, she is so Doxy is off the chart, also she had allergy as hives as a small kid , never tried after, based on recent evidence almost all adults grow out of their allergy specifically that it was hives and not anaphylaxis, so I will test her with Amoxicillin which is the safest choice for as well, She will take it in the office under my direct supervision Will treat for 7 days., Problem Depression screening (320066031) Screening for depression (Z13.31) Active confirmed Description:De pression screen Problem Shingles (8651627) Shingles (B02.9) Active confirmed Problem Screening for malignant neoplasm of cervix (915313887) Cervical cancer screening (Z12.4) Active confirmed Problem Supervision of low-risk (Z34.90) Active confirmed Comment:1. RASHAWN from Dr. Vincent @ 31wks. 2. Dated by LMP=T1 US 3. Tdap given. Passed 1h GTT. 4. PPBCM: desires sterilization @ 6wks PP. Medicaid papers signed. 5. eIOL scheduled for 09/19 @ 6am. COVID testing ordered prior. Pt informed., Problem Contraception care education (852450197) General counseling and advice for contraceptive management (Z30.09) Active confirmed Comment:1. Desires permanent sterilization via [facility] bilateral salpingectomie s. 2. Hospital consent signed today. Medicaid consent signed 07/24/2019 3. Has pre-op COVID testing etc scheduled., Problem Heavy menstrual bleeding (449050774) Heavy menstrual bleeding (N92.0) Active confirmed Comment:1. Continue with cOCP's. Has refills. 2. RTC annual/PRN prior, Problem Weight gain (924025186) Weight gain (R63.5) Active confirmed Problem High risk sexual behavior (352913614) High risk sexual behavior (Z72.51) Active confirmed Problem care (718083627) Encounter for visit (Z39.2) Active confirmed Comment:1. Doing well PP. Baby thriving 2. Bottle feeding 3. EPPDS 0/30- good support at home 4. PPBCM: depo shot in hospital. Planning on tubal, schedule for Dec., Problem Human papilloma virus screening (706284324) Screening for HPV (human papillomavirus) (Z11.51) Active confirmed Problem Anxiety (79859405) Situational anxiety (F41.8) Active confirmed Comment:will do Inderal and Hydroxyzine as needed, Problem Leukocytes in urine (329374709) Leukocytes in urine (R82.998) Active confirmed Plan Of Treatment No Information Insurance Providers Payer Name Payer Address Payer Phone Subscriber Number Group Number Insured Name Patient Relationship to Insured Coverage Start Date Coverage End Date zzDAnthem [employer] [address] [place] [address] [id number] Sylvia López Self - patient is the insured 3 DMedicaid [employer] after [employer] [address] [place], [place] [id number] Sylvia López Self - patient is the insured 3 Medical (General) History Surgical History Surgery Date(Month/Year) Tubal Ligation, ProblemStatus: Active, None, ProblemStatus: Inactive, 2019-01-07 1
--- OUTSIDE RECORDS SUMMARY | 2024-07-03 08:53 | XMS_ITS | Clinical Summary ---
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, ant epartum 06/23/2018 Resolved Problems Problem Noted Date Diagnosed Date Resolved Date Supervision of low-risk 09/17/2019 09/21/2019 Family History Medical History Relation Name Comments Diabetes Father Hypertension Father Pancreatic cancer Maternal Grandmother Cervical cancer Mother Depression Mother Diabetes Mother High Cholesterol Mother Hypertension Mother Cancer Paternal Grandmother Relation Name Status Comments Father Alive Maternal Grandmother Mother Alive Paternal Grandmother Social History Tobacco Use Types Packs/Day Years Used Date Smoking Tobacco: Never Smokeless Tobacco: Never Alcohol Use Standard Drinks/Week Comments Not Currently 0 (1 standard drink = 0.6 oz pur e alcohol) not Social Connection and Isolation Panel [NHANES] A nswer Date Recorded In a typical week, how many times do you talk on the phone with family, friends, or neighbors? Patient declined 09/20/2019 How often do you get togethe r with friends or relatives? Patient declined 09/20/2019 How often do you attend hinduism or sabianist serv ices? Patient declined 09/20/2019 Do you belong to any clubs o r organizations such as hinduism groups, unions, fraternal or athletic groups, or school groups? Patient declined 09/20/2019 How often do you attend meet ings of the clubs or organizations you belong to? Patient declined 09/20/2019 Are you , , di vorced, , never , or living with a partner? Patient declined 09/20/2019 AUDIT-C Answer Date Recorded Frequency of Alcohol Consumption Never 06/19/2018 Average Number of Drinks Not on file 019 Frequency of Binge Drinking Not on file 06/07 Overall Financial Resource Strain (CARDIA) Answe r Date Recorded How hard is it for you to pa y for the very basics like food, housing, medical care, and heating? Not hard at all 09/20/2019 PHQ-2 Answer Date Recorded Total Score 0 09/20/2019 [facility] - Occupational Stress Questionnaire Answer Date Recorded Do you feel stress - tense, restless, nervous, or anxious, or unable to sleep at night because your mind is troubled all the time - these days? Patient declined 09/20/2019 Exercise Vital Sign Answer Date Recorde d On average, how many days pe r week do you engage in moderate to strenuous exercise (like a brisk walk)? Patient declined On average, how many minutes do you engage in exercise at this level? Patient declined 09/20/2019 PRAPARE - Transportation Answer Date Re corded In the past 12 months, has l ack of transportation kept you from medical appointments or from getting medications? Patient declined 09/20/2019 In the past 12 months, has l ack of transportation kept you from meetings, work, or from getting things needed for daily living? Patient declined 09/20/2019 Childcare Answer Date Recorded Do problems getting child ca re make it difficult for you to work or study? No 09/20/2019 Employment Answer Date Recorded Do you need help finding a [facility] and/or a training program? No 09/20/2019 Purpose - Life Answer Date Recorded Purpose and direction in life Unknown Comments No Sex and Gender Information Value Date Recorded Sex Assigned at Not on file Legal Sex Female 11:54 AM EDT Gender Identity Not on file Sexual Orientation Not on file Last Filed Vital Signs Vital Sign Reading Time Taken Comments Blood Pressure 137/87 08/12/2023 5:00 PM EDT Pulse 62 08/12/2023 5:00 PM EDT Temperature 36.8 C (98.2 F) 08/12/2023 5:00 PM EDT Respiratory Rate 18 08/12/2023 5:00 PM EDT Oxygen Saturation 99% 08/12/2023 5:00 PM EDT Inhaled Oxygen Concentration - - Weight 88.5 kg (195 lb) 08/12/2023 4:13 PM EDT Height 165.1 cm (5' 5 ) 08/12/2023 4:13 PM EDT Body Mass Index 32.45 08/12/2023 4:13 PM EDT Plan of Treatment Health Maintenance Due Date Last Done Comments Depression Screening 2003 Tobacco Screening 2003 Adult BMI Follow Up Plan 04/15/2009 Pap Smear 04/15/2012 COVID-19 Vaccine (2023-2 5 season) 2023 03/05/2020, 02/06/2020 Adult BMI Screening 08/11/2024 08/12/2023 Influenza Vaccine 10/08/2024 01/14/2022, , 03/08/2018, Additional history exists DTaP,Tdap and Td Vaccines (7 - Td or Tdap) 07/23/2029 07/24/2019, 09/19/1996, 10/20/1992, Additional history exists Medical Devices Not on file Insurance [facility] MEDICAID WORKER'S COMPENSATION Advance Directives * Full Code (Latest Code Status on File) Date Activated Date Inactivated Comments 09/20/2019 6:09 AM 09/21/2019 9:44 PM Care Teams Helmet Hat Puncher Relationship Specialty Start Date End Date Riya Killian MD [address] [place] [address] PCP - General Family Medicine 09/17/19
--- OUTSIDE RECORDS SUMMARY | 2024-07-03 08:53 | XMS_ITS | Clinical Summary ---
Author Organization [facility] Address [address] [place] [address] Care Team Providers Care Ict Business Development Manager Name Role Phone Unavailable Primary Care Provider Unavailabl e Social History Tobacco Use Types Packs/Day Years Used Date Smoking Tobacco: Never Assessed Comments Unknown Sex and Gender Information Value Date Recorded Sex Assigned at Not on file Legal Sex Female 6:10 PM EST Gender Identity Not on file Sexual Orientation Not on file Plan of Treatment Health Maintenance Due Date Last Done Comments DTaP/Tdap/Td vaccine (1 - Tdap) 04/15/2010 COVID-19 Vaccine (2023-2 5 season) 2023 Flu vaccine (Season Ended) 2024 Polio vaccine Aged Out No longer elig ible based on patient's age to complete this topic Insurance [facility] MEDICAID
--- OUTSIDE RECORDS SUMMARY | 2024-07-03 08:54 | XMS_ITS | Clinical Summary ---
Author Organization [facility] Address [address] [place] [address] Care Team Providers Care Law Office Receptionist Name Role Phone Riya Killian MD Primary Care Provider [phone] Noemi Gannon Unavailable Unavailable Allergies Active Allergy Reactions Criticality Noted Date Comments Penicillins Hives,Unknown 12/01/2023 Vancomycin 01/25/2020 Red man Syndrome Medications metFORMIN XR (Glucophage-XR) 500 MG 24 hr tabletIndicatio ns:PCOS (polycystic ovarian syndrome),Encou nter for weight management,[place] rrhagia with irregular cycle Take 1 tablet (500 mg) by mouth in the evening. Take with meals Do not crush, chew, or split. 30 tablet 6 5 07/08/19 25 Active albuterol (2.5 MG/3ML) 0.083% nebulizer solution 3 ml as needed Inhalation every 6 hrs PRN for 30 day(s) 3 06/08/19 25 Discontin ued(Other ) albuterol HFA 90 mcg/act inhalerIndicati ons:Acute bronchitis, unspecified organism Inhale 2 puffs every 4 (four) hours if needed for wheezing 18 g 4 06/08/19 25 Discontin ued(Other ) Active Problems Problem Noted Date Diagnosed Date PCOS (polycystic ovarian syndrome) 06/07/2024 Encounter for weight management 06/07/2024 Acute sinusitis 12/01/2023 Allergic rhinitis due to pollen 12/01/2023 Anxiety 12/01/2023 Depression 12/01/2023 General counseling and advice for contraceptive management 12/01/2023 Heavy menstrual bleeding 12/01/2023 High risk sexual behavior 12/01/2023 Intractable migraine with aura without status mi grainosus 12/01/2023 Irregular periods 12/01/2023 Leukocytes in urine 12/01/2023 Obesity 12/01/2023 Screening for malignant neoplasm of cervix 11/30 Shingles 12/01/2023 Weight gain 12/01/2023 Request for sterilization 09/17/2019 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, ant epartum 06/23/2018 Encounters Date Type Department Care Team Description 06/07/2024 9:10 AM EDT Office Visit [facility] [address] [place] [address] Sukhjinder Newman DO PCOS (polycystic ovarian syndrome); Encounter for weight management; Menorrhagia with irregular cycle 06/07/2024 Bamboo flowsheet [facility] [address] [place] [phone] Sukhjinder Newman DO 04/18/2024 Telephone [facility] [address] [place] [phone] Madhuri Burgos MA 04/13/2024 Telephone [facility] [address] [place] [address] Shefali Calvillo NP from Last 3 Months Immunizations Immunization Administration Dates Next Due DTP 1991,1991,1991 DTaP, Unspecified 09/19/1996,10/20/1992 Hep B, Adolescent or Pediatric 09/19/1996,1995 Hep B, adult 10/20/1996,06/05/1995 HiB, unspecified 07/02/1992, 2,1991,1991 Influenza, injectable, MDCK, preservative free, quadrivalent 11/23/2018,02/27/2018 Influenza, injectable, quadrivalent 03/08/2018 Influenza, injectable, quadr ivalent, preservative free 01/14/2022 Influenza, seasonal, injectable 12/05/2014 MMR 09/19/1996,07/02/1992 OPV 09/19/1996, 3,1991,1991 PPD Test 02/27/2018 Tdap 07/24/2019 Family History Medical History Relation Name Comments Diabetes Father Hypertension Father Cancer Maternal Grandmother pancreu s, bone, cerivcal Cervical cancer Mother Diabetes Mother Hyperlipidemia Mother Cancer Other both sides of f amily Diabetes Other both sides Hyperlipidemia Other mom's side Hypertension Other both sides Relation Name Status Comments Brother Alive Father Alive Maternal Grandmother Mother Alive Other Son 1 Alive Son 2 Alive Social History Tobacco Use Types Packs/Day Years Used Date Smoking Tobacco: Never Smokeless Tobacco: Never Tobacco Cessation:Counseling Given: Not Answered Alcohol Use Standard Drinks/Week Comments Never 0 (1 standard drink = 0.6 oz pur e alcohol) Caffeine: none Comments Unknown Sex and Gender Information Value Date Recorded Sex Assigned at Not on file Legal Sex Female 7:05 PM EDT Gender Identity Not on file Sexual Orientation Not on file Last Filed Vital Signs Vital Sign Reading Time Taken Comments Blood Pressure 116/70 06/07/2024 9:32 AM EDT Pulse 95 12/01/2023 12:18 PM EDT Temperature 36.3 C (97.3 F) 12/01/2023 12:18 PM EDT Respiratory Rate - - Oxygen Saturation 97% 12/01/2023 12:18 PM EDT Inhaled Oxygen Concentration - - Weight 106 kg (233 lb) 06/07/2024 9:32 AM EDT Height 165.1 cm (5' 5 ) 05/28/2022 12:00 PM EDT Body Mass Index 38.77 05/28/2022 12:00 PM EDT Plan of Treatment Upcoming Encounters Date Type Department Care Team (Late st Contact Info) Description 07/03/2024 11:40 AM EDT Office Visit [facility] [address] [place] [address] Sukhjinder Newman, DO [address] [place], [place] [id number] 07/19/2024 9:30 AM EDT Procedure Visit [facility] [address] [place] [phone] Sukhjinder Newman, DO [address] [place] [address] Health Maintenance Due Date Last Done Comments Influenza Vaccine (Season Ended) 2024 01/14/2022, 11/23/2018, 03/08/2018, Additional history exists Cervical Cancer Screening 04/30/2027 HPV/Cotest 04/30/2027 04/29/2022 Pap Smear 04/30/2027 04/29/2022 Procedures Procedure Name Priority Date/Time Associated Diagnosis Comments THINPREP PAP (REFL) HPV MRNA E6/E7 Routine 04/29/2022 PAP SMEAR Routine 04/29/2022 12:00 AM EDT from Last 3 Months or Most Recently Relevant to Health Maintenance Results * THINPREP PAP (REFL) HPV MRNA E6/E7 (04/29/2022) CLINICAL INFORMATION: None given [facility] LMP: NONE GIVEN [facility] PREV. PAP: NONE GIVEN [facility] PREV. BX: NONE GIVEN [facility] SOURCE: None given [facility] STATEMENT OF ADEQUACY: SEE COMMENT [facility] Comment: Satisfactory for evaluation. Endocervical/transformation zone component present. INTERPRETATION /RESULT: Negative for intraepithelial lesion or malignancy. [facility] CYTOTECHNOLOGI ST: SEE COMMENT [facility] Comment: RLP, CT(ASCP) CT screening location: [place] [address]. COMMENT SEE COMMENT [facility] Comment: EXPLANATORY NOTE: The Pap is a screening test for cervical cancer. It is not a diagnostic test and is subject to false negative and false positive results. It is most reliable when a satisfactory sample, regularly obtained, is submitted with relevant clinical findings and history, and when the Pap result is evaluated along with historic and current clinical information. 04/29/2022 us Francia Rock NP [facility] Final R esult [facility] * Pap Smear (04/29/2022 12:00 AM EDT) Swab Cervical swab / Unknown Francia Rock MANAGER [employer] [facility] CYTOLOGY ORDERABLES Final Result EXTERNAL LAB from Last 3 Months or Most Recently Relevant to Health Maintenance Insurance [employer] MEDICAID [place] Care Teams Law Office Receptionist Relationship Specialty Start Date End Date Riya Killian MD [address] [place] [address] PCP - General Family Medicine 06/15/22 Noemi Gannon PCP - [facility] 02/08/24
[2024-07-03 09:43] LABS: Basophils Percent Auto 0.3 % (0.2-2.0); Eosinophils Absolute Auto 0.2 10^3/uL (0.0-0.7); Hematocrit 43.6 % (36.0-48.0); Hemoglobin 14.6 g/dL (12.0-16.0); Immature Granulocytes Abs Auto 0.04 10^3/uL (0.00-0.03); Immature Granulocytes Pct Auto 0.6 % (0.0-0.5); Lymphocytes Absolute Auto 1.7 10^3/uL (1.2-3.8); Lymphocytes Percent Auto 25.6 % (20.5-60.0); Mean Corpuscular HGB Conc 33.5 g/dL (29.9-35.2); Mean Corpuscular Hemoglobin 28.9 pg (26.7-34.0); Mean Corpuscular Volume 86.2 fL (81.0-99.0); Mean Platelet Volume 10.2 fL (9.5-13.5); Monocytes Absolute Auto 0.4 10^3/uL (0.3-0.8); Monocytes Percent Auto 6.1 % (1.7-12.0); Neutrophils Absolute Auto 4.3 10^3/uL (1.4-6.5); Neutrophils Percent Auto 64.4 % (43.0-75.0); Platelet Count 284 10^3/uL (150-450); Red Blood Count 5.06 10^6/uL (4.20-5.40); Red Cell Distribution Width 11.9 % (11.0-15.0); White Blood Count 6.7 10^3/uL (4.0-11.0)
[2024-07-03 10:16] LABS: Thyroid Stimulating Hormone 2.312 uIU/mL (0.358-3.740)
[2024-07-03 10:27] LABS: HCG Quantitative <1 mIU/mL
[2024-07-03 11:11] LABS: Free T4 0.92 ng/dL (0.76-1.46)
[2024-07-03 11:20] LABS: Estimated Average Glucose 131 mg/dL; Glycohemoglobin A1C 6.2 % (4.5-6.2)
[2024-07-04 04:07] LABS: Estradiol 76.9 pg/mL (.); FSH 3.7 mIU/mL (.); Luteinizing Hormone(LH) 3.8 mIU/mL (.); Progesterone 4.4 ng/mL (.)
[2024-07-10 17:09] LABS: DHEA, Serum 332 ng/dL (31-701)
== END 2024-07-03 08:48 | disposition home or self-care (01) ==
LOC: LAB 08:51
PROVIDERS: PCP Family Medicine; Visit Provider Obstetrics & Gynecology
DX: E28.2 Polycystic ovarian syndrome (principal); Z76.89 Persons encountering health services in other specified circumstances; N92.1 Excessive and frequent menstruation with irregular cycle
CPT/HCPCS: 36415; 82626; 82627; 82670; 83001; 83002; 83036; 84144; 84439; 84443; 84702; 85025

== ENCOUNTER 2024-07-03 19:12 | Outpatient (REF) | payer OTHER, MEDICAID, SELFPAY ==
--- OUTSIDE RECORDS SUMMARY | 2024-07-03 19:32 | XMS_ITS | CCD ---
Author Organization [facility] Care Team Providers Care Operations And Maintenance Supervisor Name Role Phone JAIDEN TOTH Admitting Unavailable JAIDEN TOTH Attending Unavailable MAKENNA HORN Consulting Unavailable JAIDEN TOTH Consulting Unavailable JAIDEN TOTH Admitting Unavailable JAIDEN TOTH Attending Unavailable RIYA HINOJOSA Primary Care Unavailable JAIDEN TOTH Consulting Unavailable JAIDEN TOTH Admitting Unavailable JAIDEN TOTH Attending Unavailable JAIDEN TOTH Consulting Unavailable JAIDEN TOTH Admitting Unavailable JAIDEN TOTH Attending Unavailable JAIDEN TOTH Primary Care Unavailable MAKENNA HORN Consulting Unavailable JAIDEN TOTH Consulting Unavailable JAIDEN TOTH Admitting Unavailable JAIDEN TOTH Attending Unavailable JAIDEN TOTH Consulting Unavailable CELSA MINER Consulting Unavailable JAIDEN TOTH Procedure Practitioner Unavailab JAIDEN [place] Admitting Unavailable JAIDEN TOTH Attending Unavailable RIYA HINOJOSA Primary Care Unavailable JAIDEN TOTH Admitting Unavailable JAIDEN TOTH Attending Unavailable RIYA HINOJOSA Primary Care Unavailable JAIDEN TOTH Admitting Unavailable JAIDEN TOTH Attending Unavailable RIYA HINOJOSA Primary Care Unavailable MAKENNA HORN Consulting Unavailable JAIDEN TOTH Consulting Unavailable RIYA HINOJOSA Primary Care Unavailable YOLANDA HUI Admitting UnavailYOLANDA Alvarez Attending UnavailYOLANDA Alvarez Consulting UnavailJAIDEN Edwards Admitting Unavailable JAIDEN TOTH Attending Unavailable JAIDEN TOTH Consulting Unavailable JAIDEN TOTH Admitting Unavailable JAIDEN TOTH Attending Unavailable JAIDEN TOTH Primary Care Unavailable JAIDEN TOTH Consulting Unavailable APOLONIA BARNETT Unavailable Cecilia Perez Unavailable Unavailable Primary Care Provider Unavailedison e UNKNOWN, PROVIDER Referring Unavailable RIYA HINOJOSA Primary Care Unavailable LANDON HAMPTON Attending Unavailable NO FAMILY, PHYSICIAN Primary Care Provider Unalester ilable BURAK Sutton Attending Provider [phone] Cecilia Sutton Admitting Unavailable Cecilia Sutton Attending Unavailable NO FAMILY, PHYSICIAN Primary Care Unavailable Riya Hinojosa MD Primary Care Provider Jagdeep Noemi Unavailable Unavailable SUKHJINDER NEWMAN Attending Unavailable SHEFALI CALVILLO Attending Unavailable Allergies Allergy Classification Reported Allergen(s) Allergy Type Date of Onset Reaction(s) Facility (2 sources) Penicillins; Translations: [PENICILLINS] Drug allergy (disorder) 09-16-19 13 [facility] Repository (2 sources) Penicillin G Drug Allergy Artist [employer] [facility] Other (8 sources) Vancomycin; Translations: [VANCOMYCIN] Drug Allergy 01-25-20 [facility] Repository (1 source) Penicillin Drug Allergy 01-28-20 [facility] Repository (7 sources) Penicillins Drug Intolerance 12-01-19 Hives, Unknown [facility] Medications Current Medications Medication Drug Class(es) Dates Sig (Normalized) Sig (Original) [id number] 200 actuat albuterol 0.09 mg/actuat metered dose inhaler (12 sources) beta2-Adrenergic Agonist Start: 12-01-2023 End: 11-30-2024 take 2 puff(s) by inhalation every four hours for wheezing albuterol HFA 90 mcg/act inhaler Indications: Acute bronchitis, unspecified organism Inhale 2 puffs every 4 (four) hours if needed for wheezing 18 g 12/01/2023 06/07/2024 Discontinued (Other) Start: 05-28-2022 End: 06-07-2024 albuterol (2.5 MG/3ML) 0.083 % nebulizer solution 3 ml as needed Inhalation every 6 hrs PRN for 30 day(s) 05/28/2022 06/07/2024 Discontinued (Other) Start: 12-08-2018 Albuterol Sulf ate (2.5 MG/3ML) 0.083% 3 ml as needed Inhalation Three times a day Dec, Not-Taking azithromycin 250 mg oral tablet (4 sources) Macrolide Antimicrobial Start: 05-28-2022 End: 12-01-2023 azithromycin (Zithromax) 250 MG tablet 1 (one) time each day at the same time 05/28/2022 12/01/2023 Discontinued (Therapy completed) Start: 01-27-2022 Azithromycin 2 50 MG 2 tablet on the first day, then 1 tablet daily for 4 days Orally Once a day for 5 day(s) Jan, Active benzonatate 100 mg oral capsule (5 sources) Non-narcotic Antitussive Start: 12-01-2023 End: 12-06-2023 take 1 capsule by mouth three times daily as needed for cough benzonatate (Tessalon Perles) 100 MG capsule Indications: Acute bronchitis, unspecified organism Take 1 capsule (100 mg) by mouth 3 (three) times a day as needed for cough for up to 5 days Do not crush or chew. 15 capsule 12/01/2023 12/06/2023 Active Start: 05-28-2022 End: 12-01-2023 take 1 capsule by mouth every eight hours benzonatate (Tessalon) 200 MG capsule 1 capsule every 8 (eight) hours 05/28/2022 12/01/2023 Discontinued (Therapy completed) fluconazole 50 mg oral tablet (1 source) Azole Antifungal Start: 04-29-2021 Diflucan 50 MG 1 tablet Orally as directed Take 1 tablet p.o. at onset of symptoms, repeat in 7 days. Apr, Active 24 hr metFORMIN hydrochloride 500 mg extended release oral tablet (3 sources) Biguanide Start: 06-07-2024 End: 07-07-2024 take 1 tablet by mouth every twenty-four hours at mealtime metFORMIN XR (Glucophage-XR) 500 MG 24 hr tablet Indications: PCOS (polycystic ovarian syndrome) , Encounter for weight management , Menorrhagia with irregular cycle Take 1 tablet (500 mg) by mouth in the evening. Take with meals Do not crush, chew, or split. 30 tablet 6 06/07/2024 07/07/2024 Active nitrofurantoin, macrocrystals 25 mg / nitrofurantoin, [...] Apr, Active predniSONE 20 mg oral tablet (4 sources) Start: 05-28-2022 End: 12-01-2023 predniSONE (Deltasone) 20 MG tablet 1 (one) time each day at the same time 05/28/2022 12/01/2023 Discontinued (Therapy completed) Start: 01-27-2022 take 1 tablet by marty th every twelve hours predniSONE 20 MG 1 tablet Orally 2 times a day for 5 day(s) Jan, Active tretinoin 0.25 mg/ml topical cream (3 sources) Retinoid Start: 03-09-2022 End: 12-01-2023 tretinoin (Retin-A) 0.025 % cream 1 (one) time each day at the same time 03/09/2022 12/01/2023 Discontinued (Therapy completed) Completed/Discontinued Medications Medication Drug Class(es) Dates Sig (Normalized) Sig (Original) cefdinir 300 mg oral capsule (1 source) [...] Problem Classification Problem Date Documented Date Episodic/Chronic Acute bronchitis (2 sources) Acute bronchitis; Translations: [Acute bronchitis, unspecified] 12-01-2023 Episodic Administrative/social admission (7 sources) Encounter for pre-employment examination; Translations: [Patient encounter status] Onset: 04-05-2022 Episodic Anxiety disorders (8 sources) Anxiety disorder, unspecified; Translations: [Anxiety] Onset: 10-30-2018 12-01-2023 Chronic Asthma (2 sources) Acute exacerbation of asthma; Translations: [Acute asthma exacerbation] Chronic Headache; including migraine (7 sources) Refractory migraine with aura; Translations: [Migraine with aura, intractable, without status migrainosus] Onset: 12-01-2023 12-01-2023 Chronic Influenza (1 source) Influenza due to unidentified influenza virus with other respiratory manifestations; Translations: [FLU D/T UNIDENT FLU VIR RESP MANIF] Onset: 03-22-2019 Episodic Menstrual disorders (20 sources) Secondary amenorrhea; Translations: [Menorrhagia] Onset: 03-13-2019 12-01-2023 Chronic Mood disorders (7 sources) Depressive disorder; Translations: [Depression] Onset: 12-01-2023 12-01-2023 Chronic Mood disorders (1 source) Major depressive [...] COND UNS TRI] Onset: 04-26-2019 Episodic Other endocrine disorders (5 sources) Polycystic ovary syndrome; Translations: [Polycystic ovarian syndrome] Onset: 06-07-2024 06-07-2024 Chronic Other female genital disorders (1 source) Other specified noninflammatory disorders of vagina; Translations: [OTH SPEC NONINFLAMMATORY D/O VAGINA] Onset: 04-26-2019 Episodic Other lower respiratory disease (2 sources) Cough; Translations: [Acute cough] 12-01-2023 Episodic Other nutritional; endocrine; and metabolic disorders (7 sources) Obesity; Translations: [Obesity, unspecified] Onset: 12-01-2023 12-01-2023 Chronic Other and delivery including normal (6 sources) Encounter for supervision of normal , unspecified, second trimester; Translations: [Encounter for supervision of normal , unspecified, first trimester] Onset: 10-30-2018 Episodic Other upper respiratory disease (7 sources) Allergic rhinitis due to pollen; Translations: [Allergic rhinitis due to pollen] Onset: 12-01-2023 12-01-2023 Chronic Residual codes; unclassified (1 source) Contact with and (suspected) exposure to potentially hazardous body fluids; Translations: [Contact with and (suspected) exposure to potentially hazardous body fluids] Onset: 08-12-2023 Episodic Residual codes; unclassified (1 source) 12 [...] [38 WEEKS GESTATION OF ] Onset: 10-30-2018 Unclassified (1 source) Body Fluid Exposure Onset: 08-12-2023 Past or Other Problems Problem Classification Problem Date Documented Da te Episodic/Chronic Abdominal pain (1 source) Unspecified abdominal pain; Translations: [UNSPECIFIED ABDOMINAL PAIN] Onset: 09-07-2018 Episodic Contraceptive and procreative management (14 sources) Patient encounter status; Translations: [Encounter for other general counseling and advice on contraception] Onset: 09-17-2019 12-01-2023 Episodic Diabetes or abnormal glucose tolerance complicating ; childbirth; or the puerperium (8 sources) Gestational diabetes mellitus in , unspecified control; Translations: [Gestational diabetes mellitus in childbirth, unspecified control] Onset: 09-07-2018 Episodic Genitourinary symptoms and ill-defined conditions (9 sources) Dysuria; Translations: [Hematuria, unspecified] Onset: 04-29-2021 [...] COMP PREG CHILDBIRTH PUERPER] Onset: 09-02-2018 Episodic Other complications of (7 sources) High risk ; Translations: [Supervision of other high risk pregnancies, second trimester] Onset: 06-23-2018 12-01-2023 Episodic Other nutritional; endocrine; and metabolic disorders (7 sources) Weight increased; Translations: [Abnormal weight gain] Onset: 12-01-2023 12-01-2023 Episodic Other screening for suspected conditions (not mental disorders or infectious disease) (11 sources) Encounter for screening for malignant neoplasm of cervix; Translations: [Cancer cervix screening status] Onset: 04-25-2019 12-01-2023 Episodic Other upper respiratory infections (9 sources) Acute pharyngitis, unspecified; Translations: [Streptococcal pharyngitis] Onset: 12-01-2023 Episodic Residual codes; unclassified (7 sources) High risk sexual behavior; Translations: [High risk heterosexual behavior] Onset: 12-01-2023 12-01-2023 Episodic Unclassified (1 source) Contact with and (suspected) exposure to covid-19 Z20.822 Urinary tract infections (1 source) Urinary tract infection, site not specified Onset: 04-29-2021 Resolved: 04-29-2021 Episodic Viral infection (7 sources) Herpes zoster; Translations: [Zoster without complications] Onset: 12-01-2023 12-01-2023 Episodic Results Test Name Value Interpretation Reference Range Facility ALL CBC WITH AUTO DIFFon BASOPHILS ABSOLUTE AUTO 0 [facility] Basophils/100 WBC (Bld) 0.3 % 0.2 - 2.0 % [facility] Eosinophils/100 WBC (Bld) 3 % 0.9 - 7.0 % [facility] Erythrocyte distribution width (RBC) [Ratio] 11.9 % 11.0 - 15.0 % [facility] Hematocrit (Bld) [Volume fraction] 43.6 % 36.0 - 48.0 % [facility] Hemoglobin (Bld) [Mass/Vol] 14.6 g/dL 12.0 - 16.0 g/dL [facility] IMMATURE GRANULOCYTES ABS AUTO 0.04 High [facility] Immature granulocytes/100 WBC (Bld) 0.6 % High 0.0 - 0.5 % [facility] Interpretation and review of laboratory results Abnormal [facility] LYMPHOCYTES ABSOLUTE AUTO 1.7 [facility] Lymphocytes/100 WBC (Bld) 25.6 % 20.5 - 60.0 % [facility] MCH (RBC) [Entitic mass] 28.9 pg 26.7 - 34.0 pg [facility] MCHC (RBC) [Mass/Vol] 33.5 g/dL 29.9 - 35.2 g/dL [facility] MCV (RBC) [Entitic vol] 86.2 fL 81.0 - 99.0 fL [facility] MONOCYTES ABSOLUTE AUTO 0.4 [facility] Monocytes/100 WBC (Bld) 6.1 % 1.7 - 12.0 % [facility] NEUTROPHILS ABSOLUTE AUTO 4.3 [facility] Neutrophils/100 WBC (Bld) 64.4 % 43.0 - 75.0 % [facility] Platelet mean volume (Bld) [Entitic vol] 10.2 fL 9.5 - 13.5 fL [facility] EO # 0.2 [facility] PLT [address] [facility] RBC 5.06 [facility] WBC 6.7 [facility] - Microbiology an d Antimicrobial susceptibilityon 12-01-2023 SARS-CoV-2 (COVID-19) RNA TELLO+probe Ql (Unsp spec) - [facility] No Panel Informationon 11-30 FLU A - [facility] FLU B - [facility] Interpretation and review of laboratory results Normal [facility] Basic Metabolic Tracy w/Rfx A1 Con 09-09-2023 GFR/1.73 sq M.predicted MDRD (S/P/Bld) [Vol rate/Area] mL/min/{1.73_m2} Normal [facility] Comment on above: Performed By: #### E MP BMP, EBS A1C, EBS LIPID #### [facility] [address] [id number] [place] Calcium [Mass/volume] in Ser um or PlasmaOrdered By: Cecilia Sutton on 09-09-2023 Calcium [Mass/Vol] 9.7 mg/dL Normal 8.6-10.3 [facility] Comment on above: Performed By: #### E MP BMP, EBS A1C, EBS LIPID #### [facility] [address] [place] [address] [place] Carbon dioxide, total [Moles /volume] in Serum or PlasmaOrdered By: Cecilia Sutton on 09-09-2023 CO2 [Moles/Vol] 22.0 mmol/L Normal 21.0-31.0 [facility] Comment on above: Performed By: #### E MP BMP, EBS A1C, EBS LIPID #### [facility] [address] [id number] [place] Chloride [Moles/volume] in S jessie or PlasmaOrdered By: Cecilia Sutton on 09-09-2023 Chloride [Moles/Vol] 105 mmol/L Normal 98-107 [facility] Comment on above: Performed By: #### E MP BMP, EBS A1C, EBS LIPID #### [facility] [address] [id number] [place] Cholesterol [Mass/volume] in Serum or PlasmaOrdered By: Cecilia Sutton on 09-09-2023 Cholesterol [Mass/Vol] 227 mg/dL High 140-200 [facility] Comment on above: Chol less than 200 m g/dl low riskChol 201-239 mg/dl borderline riskChol 240 mg/dl and greater high risk Result Comment: Chol less than 200 mg/dl low risk Chol 201-239 mg/dl borderline risk Chol 240 mg/dl and greater high risk Performed By: #### E MP BMP, EBS A1C, EBS LIPID #### [facility] [address] Cholesterol in LDL Calc [Mas s/Vol]Ordered By: Cecilia Sutton on 09-09-2023 Cholesterol in LDL [Mass/Vol] 139 mg/dL High 0-100 [facility] Comment on above: LDL ATP III CLASSIFI CATIONLDL less than 100 mg/dL OptimalLDL 100-129 mg/dL Near or above optimalLDL 130-159 mg/dL Borderline highLDL 160-189 mg/dL HighLDL greater than 189 mg/dL Very high Cholesterol in VLDL Calc [Ma ss/Vol]Ordered By: Cecilia Sutton on 09-09-2023 Cholesterol in VLDL [Mass/Vol] 53 mg/dL [facility] Creatinine [Mass/volume] in Serum or PlasmaOrdered By: Cecilia Sutton on 09-09-2023 Creatinine [Mass/Vol] 0.46 mg/dL Low 0.60-1.[address] [facility] Comment on above: Performed By: #### E MP BMP, EBS A1C, EBS LIPID #### [facility] [address] EBS A1C with Estimated Ave Zach siu 09-09-2023 Glucose [Mass/Vol] 134 mg/dL Normal [facility] Comment on above: Result Comment: PERF ORMED BY: [place] [address] PATHOLOGIST [employer]LE[employer] WORKER JU BAR M.D. Performed By: #### E MP BMP, EBS A1C, EBS LIPID #### [facility] [address] HbA1c (Bld) [Mass fraction] 6.3 % High 4.3-5.6 [facility] Comment on above: Result Comment: Incr eased risk for diabetes: 5.7 - 6.4 diabetes: >6.4 glycemic control for adults with diabetes: <7.0 Performed By: #### E MP BMP, EBS A1C, EBS LIPID #### [facility] [address] Glucose [Mass/volume] in Ser um or PlasmaOrdered By: Cecilia Sutton on 09-09-2023 Glucose [Mass/Vol] 104 mg/dL High 70-100 [facility] Comment on above: ADA recommended refe rence range Result Comment: ADA recommended reference range Performed By: #### E MP BMP, EBS A1C, EBS LIPID #### [facility] [address] Lipid Profileon 09-09-2023 LDL Cholesterol,Calculated 139 mg/dL High 0-100 [facility] Comment on above: Result Comment: LDL ATP III CLASSIFICATION LDL less than 100 mg/dL Optimal LDL 100-129 mg/dL Near or above optimal LDL 130-159 mg/dL Borderline high LDL 160-189 mg/dL High LDL greater than 189 mg/dL Very high Performed By: #### E MP BMP, EBS A1C, EBS LIPID #### [facility] [address] Triglyceride w/Reflex 266 mg/dL High 0-149 [facility] Comment on above: Result Comment: TRIG ATP III CLASSIFICATION TRIG less than 150 mg/dL Normal TRIG 150-199 mg/dL Borderline high TRIG 200-500 mg/dL High TRIG greater than 500 mg/dL Very high Standard traceable to the Center for Disease Conrtrol and Prevention (CDC) test method. Performed By: #### E MP BMP, EBS A1C, EBS LIPID #### [facility] [address] VLDL CHOLESTEROL 53 mg/dL Normal [facility] Comment on above: Performed By: #### E MP BMP, EBS A1C, EBS LIPID #### [facility] [address] No Panel InformationOrdered By: Cecilia Sutton on 09-09-2023 Estimated GFR (CKD-EPI) > 60.0 mL/Min [facility] Creatinine Clearance (Chem N/A [facility] Potassium [Moles/volume] in Serum or PlasmaOrdered By: Cecilia Sutton on 09-09-2023 Potassium [Moles/Vol] 4.4 mmol/L Normal 3.5-5.[address] [facility] Comment on above: Hemolysis is present at a level that could interfere with the result.Contact lab if redraw is required Result Comment: Hemo lysis is present at a level that could interfere with the result. Contact lab if redraw is required Performed By: #### E MP BMP, EBS A1C, EBS LIPID #### [address] Serum or plasma anion gap de terminationOrdered By: Cecilia Sutton on 09-09-2023 Anion gap [Moles/Vol] 12.4 mmol/L Normal 6.0-15.0 [facility] Comment on above: Performed By: #### E MP BMP, EBS A1C, EBS LIPID #### [address] Serum or plasma high density lipoprotein (HDL) cholesterol measurementOrdered By: Cecilia Sutton on 09-09-2023 Cholesterol in HDL [Mass/Vol] 35 mg/dL Normal 23-92 [facility] Comment on above: HDL CHOL ATP-III CLA SSIFICATION Cardiovascular RiskHDL > or equal to 60 mg/dL LOWHDL < 40 mg/dL HIGH Result Comment: HDL CHOL ATP-III CLASSIFICATION Cardiovascular Risk HDL > or equal to 60 mg/dL LOW HDL < 40 mg/dL HIGH Performed By: #### E MP BMP, EBS A1C, EBS LIPID #### [address] Serum or plasma total choles terol/high density lipoprotein (HDL) cholesterol mass ratOrdered By: Cecilia Sutton on 09-09-2023 Cholesterol.total/Rebecca sterol in HDL [Mass ratio] 6.5 {ratio} Normal <5.0 [facility] Comment on above: Result Comment: PERF ORMED BY: [place] [address] PATHOLOGIST [employer] WORKER JU BAR M.D. Performed By: #### E MP BMP, EBS A1C, EBS LIPID #### [address] Sodium [Moles/volume] in Ser um or PlasmaOrdered By: Cecilia Sutton on 09-09-2023 Sodium [Moles/Vol] 135 mmol/L Low 136-145 [facility] Comment on above: Performed By: #### E MP BMP, EBS A1C, EBS LIPID #### [facility] [address] [place] [address] [facility] Triglyceride [Mass/volume] i n Serum or PlasmaOrdered By: Cecilia Sutton on 09-09-2023 Triglyceride [Mass/Vol] 266 mg/dL High 0-149 [facility] Comment on above: TRIG ATP III CLASSIF ICATIONTRIG less than 150 mg/dL NormalTRIG 150-199 mg/dL Borderline highTRIG 200-500 mg/dL High TRIG greater than 500 mg/dL Very highStandard traceable to the Center for Disease Conrtrol and Prevention (CDC) test method. Urea nitrogen [Mass/volume] in Serum or PlasmaOrdered By: Cecilia Sutton on 09-09-2023 Urea nitrogen [Mass/Vol] 17 mg/dL Normal 7-25 [facility] Comment on above: Performed By: #### E MENDEZ BMP, EBS A1C, EBS LIPID #### [facility] [address] [id number] [facility] ALT No additional P-5'-P [Ca talytic activity/Vol]on 08-12-2023 ALT [Catalytic activity/Vol] 17 U/L Normal 0-31 [facility] Comment on above: Performed By: #### 1 744-2, 5193-8, 96138-1, 20303-8 #### [facility] ([id number]) [address] [place] [address] HBV surface Ab IA Qnon 08-11 Anti HBs quant. 274.99 mIU/mL Normal [facility] Comment on above: Result Comment: Vacc inated: >=12mIU/mL, Positive (Immune) Unvaccinated: <8mIU/mL, Negative (Not Immune) 8-11.99 mIU/mL: Indeterminate, (Considered Not Immune) Performed By: #### 1 744-2, 5193-8, 81520-2, 39388-7 #### [facility] ([id number]) [address] [place] [address], [address] [place] [address] HCV Ab IA Qlon 08-12-2023 ANTI HCV W/PCR REFLX Non-Reactive Normal NRCT [facility] Comment on above: Result Comment: If recent infection suspected, recommend repeat testing (>2 months). Qtjrgr-[id number] ratio is <0.80. Performed By: #### 1 744-2, 5193-8, 40193-4, 41940-1 #### [facility] ([id number]) [address] [place] [address], [address] [place] [address] HIV 1+2 Ab+HIV1 p24 Ag IA Ql on 08-12-2023 HIV 1 and 2 Ab/Ag Screen Non-Reactive Normal NRCT [facility] Comment on above: Result Comment: This information has been disclosed to you from confidential records protected from disclosure by state law. You shall make no further disclosure of this information without the specific, written and informed release of the individual to whom it pertains, or as otherwise permitted by state law. A general authorization for the release of medical or other information is not sufficient for the purpose of the release of HIV test results or diagnoses. Performed By: #### 1 744-2, 5193-8, 61343-2, 24296-3 #### [facility] ([id number]) [address] [address], [address] [place] [address] Cytology Cervical or vaginal smear or scraping studyOrdered By: Rosa Elena Lee on 04-29-2022 [facility] VZ Immunityon 04-07-2022 VZ Immunity 2.16 Normal >1.09 [facility] Comment on above: Result Comment: Interpretation: IMMUNE Reference Range: <0.91 Not Immune 0.91-1.09 Equivocal >1.09 Immune Performed By: #### V ZI #### [facility] [address] [place] [address] Rn Integrated: Matias Jones MD COVID/FLU RT-PCRon SARS-CoV-2 (COVID-19) RNA TELLO+probe Ql (Unsp spec) Negative [facility] Other COVID/FLU RT-PCR Negative [employer] Other Quick Strepon 01-27-2022 S. pyogenes Org specific cx Ql (Throat) Positive [employer] Other Quick Strep [employer] Other Urinalysis - AUTOMATEDon Appearance (U) clear [employer] Other Bilirubin Ql (U) Negative [employer] Other Color (U) yellow [employer] Other Glucose Ql (U) Negative [employer] Other Hemoglobin Ql (U) trace [employer] Other Ketones Ql (U) Negative [employer] Other Leukocyte esterase Test strip Ql (U) small [employer] Other Nitrite Ql (U) Negative [employer] Other pH (U) 7.5 [pH] [employer] Other Protein Ql (U) Negative [employer] Other Specific gravity (U) [Rel density] 1.025 [employer] Other Urobilinogen (U) [Mass/Vol] 0.2 mg/dL [employer] Other Urinalysis - AUTOMATED No [employer] Other US PREG CERVICAL LENGTHon US PREG CERVICAL LENGTH PROCEDURE: US [place] EG ANATOMY SINGLE, US PREG CERVICAL LENGTH, 06/01/2019 [...] by: APOLONIA BARNETT Date: 2019-06-01 16:18 Normal [facility] PAP ACOG PANEL 3: 21 to 29on 05-01-2019 Age Gdln ACOG Testing Normal [facility] Comment on above: Performed By: #### U WILLIAM UMICRO #### [facility] [address] [address] Kellen Moyer Chlamydia, Nuc. Acid Amp Negative Normal Negative [facility] Comment on above: Result Comment: Perf ormed at: =G Performed By: #### U WILLIAM UMICRO #### [facility] [address] [address] Kellen Moyer DIAGNOSIS: Comment Abnormal [facility] Comment on above: Result Comment: EPIT HELIAL CELL ABNORMALITY. ATYPICAL SQUAMOUS CELLS OF UNDETERMINED SIGNIFICANCE (ASC-US). Performed at: WB Performed By: #### U WILLIAM UMICRO #### [facility] [address] [place] [address] Kellen Moyer Electronically signed by: Comment Normal [facility] Comment on above: Result Comment: Barron Liu MD, Pathologist Performed at: WB Performed By: #### U WILLIAM UMICRO #### [facility] [address] [address] Kellen Moyer Gonococcus, Nuc. Acid Amp Negative Normal Negative [facility] Comment on above: Result Comment: Perf ormed at: =G Performed By: #### U WILLIAM UMICRO #### [facility] [address] [address] Kellen Moyer HPV Aptima Negative Normal Negative [facility] Comment on above: Result Comment: This nucleic acid amplification test detects fourteen high-risk HPV types (16,18,31,33,35,39,45,51,52,56,58,59,66,68) without differentiation. Performed By: #### U WILLIAM UMICRO #### [facility] [address] [address] Kellen Moyer Methodology: Comment Normal [facility] Comment on above: Result Comment: This liquid based ThinPrep(R) pap test was screened with the use of an image guided system. Performed at: WB Performed By: #### U ACSSARIKA, UMICRO #### [facility] [address] [place] [address] Kellen Moyer Note: Comment [facility] Comment on above: Result Comment: The [...] Performed By: #### U ACSSARIKA, UMICRO #### [facility] [address] [place] [address] Kellen Moyer Pathologist Provided ICD10 Comment [facility] Comment on above: Result Comment: [id number]. [id number] Performed at: WB Performed By: #### U WILLIAM, UMICRO #### [facility] [address] [place] [address] Kellen Moyer Performed by: Comment Normal [facility] Comment on above: Result Comment: Nieves Cameron, Dairy Husbandman (ASCP) Performed at: WB Performed By: #### U ACSSARIKA, UMICRO #### [facility] [address] [place] [address] Kellen Moyer Reflex Criteria: Comment Normal [facility] Comment on above: Result Comment: See below for HPV testing results. . Performed at: WB Performed By: #### U ACSSARIKA, UMICRO #### [facility] [address] [place] [address] Kellen Moyer Specimen adequacy: Comment Normal [facility] Comment on above: Result Comment: Sati sfactory for evaluation. Endocervical and/or squamous metaplastic cells (endocervical component) are present. Areas of partially obscuring inflammatory exudate are present. Performed at: WB Performed By: #### U ACSSARIKA, UMICRO #### [facility] [address] [place] [address] Kellen Moyer . . Normal [facility] Comment on above: Result Comment: Perf ormed at: WB Performed By: #### U ACSSARIKA UMICRO #### [facility] [address] [address] Kellenrachel Moyer VAGINITIS/VAGINOSIS DNA PROB [place] 04-27-2019 Kelsey species Negative Normal Negative [facility] Comment on above: Performed By: #### U CHLOE THOMAS #### [facility] [address] [address] Kellen Comfort Gardnerella vaginalis Positive Abnormal Negative [facility] Comment on above: Performed By: #### U CHLOE THOMAS #### [facility] [address] [place] [address] Kellenrachel Moyer Trichomonas vaginalis Negative Normal Negative [facility] Comment on above: Performed By: #### U CHLOE THOMAS #### [facility] [address] [place] [address] Kellenrachel Moyer CULTURE URINEon 03-21-2019 CULTURE URINE Culture Observations : Moderate growth of mixed genital juan.No potential pathogens seen. Normal [facility] Comment on above: Performed By: #### U CHLOE THOMAS #### [facility] [address] [place] [address] Kellenrachel Moyer ER URINE PROFILEon 0 Bilirubin [Mass/Vol] Negative Normal NEGATIVE [facility] Comment on above: Performed By: #### U CHLOE THOMAS #### [facility] [address] [place] [address] Kellen Comfort BLOOD Negative Normal NEGATIVE [facility] Comment on above: Performed By: #### U CHLOE THOMAS #### [facility] [address] [place] [address] Kellen Comfort Clarity (U) CLEAR Normal [facility] Comment on above: Performed By: #### U CHLOE THOMAS #### [facility] [address] [place] [address] Kellen Comfort Color (U) LT. YELLOW Normal YELLOW [facility] Comment on above: Performed By: #### U CHLOE THOMAS #### [facility] [address] [place] [address] Kellenrachel Chanden ERUAHD A micrscopic examination will be performed if indicated. Normal [facility] Comment on above: Performed By: #### U ACSSARIKA UMICRO #### [facility] [address] [address] Kellen Comfort Glucose [Mass/Vol] Negative Normal NEGATIVE [facility] Comment on above: Performed By: #### U ACSSARIKA, UMICRO #### [facility] [address] [address] Kellen Comfort Ketones Ql (U) TRACE Normal NEGATIVE [facility] Comment on above: Performed By: #### U ACSSARIKA UMICRO #### [facility] [address] [address] Kellen Comfort Nitrite Ql (U) Negative Normal NEGATIVE [facility] Comment on above: Performed By: #### U ACSSARIKA UMICRO #### [facility] [address] [place] [address] Kellen Comfort pH (Bld) 6.0 Normal 5-9 [facility] Comment on above: Performed By: #### U ACSSARIKA UMICRO #### [facility] [address] [place] [address] Kellen Comfort Protein (U) [Mass/Vol] Negative Normal [facility] Comment on above: Performed By: #### U ACSSARIKA UMICRO #### [facility] [address] [place] [address] Kellen Comfort SPEC GRAVITY >=1.030 Normal 1.005-<=1.02 5 [facility] Comment on above: Performed By: #### U ACSSARIKA UMICRO #### [facility] [address] [address] Kellen Comfort UR MICRO IND INDICATED Normal [facility] Comment on above: Performed By: #### U ACSSARIKA UMICRO #### [facility] [address] [address] Kellen Comfort Urobilinogen Qn (U) 0.2 EU/dl Normal [facility] Comment on above: Performed By: #### U ACSSARIKA UMICRO #### [facility] [address] [place], [place] [address] Kellen Comfort WBC (Bld) [#/Vol] SMALL Normal NEGATIVE [facility] Comment on above: Performed By: #### U WILLIAM UMICRO #### [facility] [address] [place], [place] [address] Kellen Comfort URINE MICROSCOPIC ONLYon AMORPHOUS CRYSTALS FEW Normal [facility] Comment on above: Performed By: #### U ACSSARIKA UMICRO #### [facility] [address] [id number] Kellen Comfort Bacteria LM.HPF (Urine sed) [#/Area] MODERATE Normal NONE SEEN [facility] Comment on above: Performed By: #### U WILLIAM UMICRO #### [facility] [address] [id number] Kellen Comfort CAST NONE SEEN Normal NONE SEEN [facility] Comment on above: Performed By: #### U ACSSARIKA UMICRO #### [facility] [address] [id number] Kellen Comfort Crystals LM Nom (Urine sed) SEEN Normal NONE SEEN [facility] Comment on above: Performed By: #### U WILLIAM UMICRO #### [facility] [address] [id number] Kellen Comfort CULTURE INDICATED Normal [facility] Comment on above: Performed By: #### U ACSSARIKA UMICRO #### [facility] [address] [id number] Kellen Comfort Epithelial cells LM.HPF (Urine sed) [#/Area] MODERATE Normal [facility] Comment on above: Performed By: #### U ACSSARIKA UMICRO #### [facility] [address] [id number] Kellen Comfort MUCOUS TRACE Normal NONE SEEN [facility] Comment on above: Performed By: #### U ACSSARIKA UMICRO #### [facility] [address] [id number] Kellen Comfort RBC (U) [#/Vol] 5-10 Normal 0-2 [facility] Comment on above: Performed By: #### U WILLIAM UMICRO #### [facility] [address] [address] Kellenrachel Chanden WBC (Bld) [#/Vol] 50-75 Normal NONE SEEN [facility] Comment on above: Performed By: #### U WILLIAM, UMICRO #### [facility] [address] [address] Kellen Comfort CULTURE THROATon 03-20-2019 CULTURE THROAT Culture Observations : Normal respiratory juan Normal [facility] Comment on above: Performed By: #### U WILLIAM UMICRO #### [facility] [address] [place] [address] Kellen Comfort INFLUENZA A AND B AGon 03-20 INFLUBNEGH SEE BELOW Normal [facility] Comment on above: Result Comment: Nega tive for Flu B protein antigen. Infection due to Flu B cannot be ruled out. Flu B antigen in the sample may be below the detection limit of the test. Performed By: #### U WILLIAM UMICRO #### [facility] [address] [place] [address] Kellen Comfort INFLUENZA A AG Positive Normal NEGATIVE SEE COMMENT [facility] Comment on above: Performed By: #### U ALONA THOMASRO #### [facility] [address] [place] [address] Kellen Comfort INFLUENZA B AG Negative Normal NEGATIVE SEE COMMENT [facility] Comment on above: Performed By: #### RENE BOTELLOICRO #### [facility] [address] [place] [address] Kellen Comfort INFLUPOSH SEE BELOW Normal [facility] Comment on above: Result Comment: NOTE : Live attenuated influenzae vaccine viruses can cause a positive result for a rapid influenza diagnostic test if administered up to 7 days prior to rapid testing. Performed By: #### U RENE THOMASICRO #### [facility] [address] [place] [address] Kellen Comfort INTERNAL CONTROLS Within Normal Limits Normal Wi thin Normal Limits [facility] Comment on above: Performed By: #### U CHLOE THOMAS #### [facility] [address] [address] Kellen Moyer STREPT SCREENon 03-20-2019 STREP SCREEN A Negative Normal NEGATIVE [facility] Comment on above: Performed By: #### U CHLOE THOMAS #### [facility] [address] [phone] Kellen Comfort US PREG <14 WKSon 03-13-2019 US PREG <14 WKS Patient: ANN-MARIE LÓPEZ Exam Date: 03/13/2019 : 1990 Gender:F Ordering : DR. JAIDEN TOTH . Admission #: [id number] Family : Order #: [id number] CLICK HERE TO VIEW EXAM RADIOLOGY REPORT [...] 1. Single live intrauterine . Dictated by: Makenna Horn M.D. on 03/13/2019 at 10:10 Approved by: Makenna Horn M.D. on 03/13/2019 at 10:13 Normal [facility] CBC AUTO DIFFon 10-19-2018 Basophils (Bld) [#/Vol] 0.0 103/ul Normal 0.0-0.1 [facility] Comment on above: Performed By: #### U CHLOE THOMAS #### [facility] [address] [place], [place] [address] Kellen Moyer Basophils/100 WBC (Bld) 0.3 % Normal 0.2-2.0 [facility] Comment on above: Performed By: #### U CHLOE THOMAS #### [facility] [address] [place] [address] Kellen Comfort Eosinophils (Bld) [#/Vol] 0.1 103/ul Normal 0.0-0.7 [facility] Comment on above: Performed By: #### CHLOE BOTELLO #### [facility] [address] [place] [address] Kellen Comfort Eosinophils/100 WBC (Bld) 1.1 % Normal 0.9-7.0 [facility] Comment on above: Performed By: #### CHLOE BOTELLO #### [facility] [address] [place] [address] Kellen Comfort Erythrocyte distribution width (RBC) [Ratio] 11.9 % Normal 11.0-15.0 [facility] Comment on above: Performed By: #### CHLOE BOTELLO #### [facility] [address] [place] [address] Kellen Comfort Hematocrit (Bld) [Volume fraction] 32.4 % Critically low 36.0-48.0 [facility] Comment on above: Performed By: #### CHLOE BOTELLO #### [facility] [address] [place] [address] Kellen Comfort Hemoglobin (Bld) [Mass/Vol] 10.8 g/dL Critically low 12.0-16.0 [facility] Comment on above: Performed By: #### CHLOE BOTELLO #### [facility] [address] [place] [address] Kellen Comfort IG # 0.03 10e3/ul Normal 0.00-0.03 [facility] Comment on above: Performed By: #### CHLOE BOTELLO #### [facility] [address] [place] [address] Kellen Comfort IG % 0.3 % Normal 0.0-0.5 [facility] Comment on above: Performed By: #### CHLOE BOTELLO #### [facility] [address] [place], [place] [address] Kellen Comfort Lymphocytes (Bld) [#/Vol] 1.6 103/ul Normal 1.2-3.8 [facility] Comment on above: Performed By: #### CHLOE BOTELLO #### [facility] [address] [place], [place] [phone] Kellen Comfort Lymphocytes/100 WBC (Bld) 18.3 % Critically low 20.5-60.0 [facility] Comment on above: Performed By: #### CHLOE BOTELLO #### [facility] [address] [place], [place] [phone] Kellen Comfort MANUAL DIFF REQ NO Normal [facility] Comment on above: Performed By: #### CHLOE BOTELLO #### [facility] [address] [place], [place] [phone] Kellen Comfort MCH (RBC) [Entitic mass] 29.5 pg Normal 26.7-34.0 [facility] Comment on above: Performed By: #### CHLOE BOTELLO #### [facility] [address] [place], [place] [phone] Kellen Comfort MCHC (RBC) [Mass/Vol] 33.3 g/dL Normal 29.9-35.2 [facility] Comment on above: Performed By: #### ALONA BOTELLORO #### [facility] [address] [place], [place] [phone] Kellen Comfort MCV (RBC) [Entitic vol] 88.5 fL Normal 81.0-99.0 [facility] Comment on above: Performed By: #### ALONA BOTELLORO #### [facility] [address] [place], [place] [phone] Kellen Comfort Monocytes (Bld) [#/Vol] 0.7 103/ul Normal 0.3-0.8 [facility] Comment on above: Performed By: #### ALONA BOTELLORO #### [facility] [address] [place], [place] [phone] Kellen Comfort Monocytes/100 WBC (Bld) 8.0 % Normal 1.7-12.0 [facility] Comment on above: Performed By: #### CHLOE BOTELLO #### [facility] [address] [phone] Kellen Comfort Neutrophils (Bld) [#/Vol] 6.4 103/ul Normal 1.4-6.5 [facility] Comment on above: Performed By: #### CHLOE BOTELLO #### [facility] [address] [place], [place] [phone] Kellen Comfort Neutrophils/100 WBC (Bld) 72.0 % Normal 43.0-75.0 [facility] Comment on above: Performed By: #### CHLOE BOTELLO #### [facility] [address] [place] [address] Kellen Comfort Platelet mean volume (Bld) [Entitic vol] 12.3 fL Normal 9.5-13.5 [facility] Comment on above: Performed By: #### CHLOE BOTELLO #### [facility] [address] [place] [address] Kellen Comfort Platelets (Bld) [#/Vol] 154 103/ul Normal 150-450 [facility] Comment on above: Performed By: #### CHLOE BOTELLO #### [facility] [address] [place] [address] Kellne Comfort RBC (Bld) [#/Vol] 3.66 106/ul Critically low 4.20-5.40 [facility] Comment on above: Performed By: #### CHLOE BOTELLO #### [facility] [address] [place], [place] [phone] Kellen Comfort WBC (Bld) [#/Vol] 8.9 103/ul Normal 4.0-11.0 [facility] Comment on above: Performed By: #### ALONA BOTELLORO #### [facility] [address] [place], [place] [phone] Kellen Comfort CBC AUTO DIFFon 10-18-2018 Basophils (Bld) [#/Vol] 0.0 103/ul Normal 0.0-0.1 [facility] Comment on above: Performed By: #### C BC #### [facility] [address] [place], [place] [address] Kellen Comfort Basophils/100 WBC (Bld) 0.4 % Normal 0.2-2.0 [facility] Comment on above: Performed By: #### C BC #### [facility] [address] [phone] Kellen Comfort Eosinophils (Bld) [#/Vol] 0.1 103/ul Normal 0.0-0.7 [facility] Comment on above: Performed By: #### C BC #### [facility] [address] [place], [place] [phone] Kellen Comfort Eosinophils/100 WBC (Bld) 0.7 % Critically low 0.9-7.0 [facility] Comment on above: Performed By: #### C BC #### [facility] [address] [place], [place] [phone] Kellen Comfort Erythrocyte distribution width (RBC) [Ratio] 11.8 % Normal 11.0-15.0 [facility] Comment on above: Performed By: #### C BC #### [facility] [address] [place], [place] [phone] Kellen Comfort Hematocrit (Bld) [Volume fraction] 34.9 % Critically low 36.0-48.0 [facility] Comment on above: Performed By: #### C BC #### [facility] [address] [place], [place] [phone] Kellen Comfort Hemoglobin (Bld) [Mass/Vol] 11.7 g/dL Critically low 12.0-16.0 [facility] Comment on above: Performed By: #### C BC #### [facility] [address] [place], [place] [phone] Kellen Comfort IG # 0.01 10e3/ul Normal 0.00-0.03 [facility] Comment on above: Performed By: #### C BC #### [facility] [address] [place], [place] [phone] Kellen Comfort IG % 0.1 % Normal 0.0-0.5 [facility] Comment on above: Performed By: #### C BC #### [facility] [address] [place], [place] [address] Kellen Comfort Lymphocytes (Bld) [#/Vol] 1.2 103/ul Normal 1.2-3.8 [facility] Comment on above: Performed By: #### C BC #### [facility] [address] [place], [place] [address] Kellen Comfort Lymphocytes/100 WBC (Bld) 16.5 % Critically low 20.5-60.0 [facility] Comment on above: Performed By: #### C BC #### [facility] [address] [place], [place] [address] Kellen Comfort MANUAL DIFF REQ NO Normal [facility] Comment on above: Performed By: #### C BC #### [facility] [address] [place] [address] Kellen Comfort MCH (RBC) [Entitic mass] 29.2 pg Normal 26.7-34.0 [facility] Comment on above: Performed By: #### C BC #### [facility] [address] [place] [address] Kellen Comfort MCHC (RBC) [Mass/Vol] 33.5 g/dL Normal 29.9-35.2 [facility] Comment on above: Performed By: #### C BC #### [facility] [address] [place], [place] [address] Kellen Comfort MCV (RBC) [Entitic vol] 87.0 fL Normal 81.0-99.0 [facility] Comment on above: Performed By: #### C BC #### [facility] [address] [place], [place] [address] Kellen Comfort Monocytes (Bld) [#/Vol] 0.6 103/ul Normal 0.3-0.8 [facility] Comment on above: Performed By: #### C BC #### [facility] [address] [place], [place] [address] Kellen Comfort Monocytes/100 WBC (Bld) 8.3 % Normal 1.7-12.0 [facility] Comment on above: Performed By: #### C BC #### [facility] [address] [place], [place] [address] Kellen Comfort Neutrophils (Bld) [#/Vol] 5.3 103/ul Normal 1.4-6.5 [facility] Comment on above: Performed By: #### C BC #### [facility] [address] [place] [id number] Kellen Comfort Neutrophils/100 WBC (Bld) 74.0 % Normal 43.0-75.0 [facility] Comment on above: Performed By: #### C BC #### [facility] [address] [place], [place] [id number] Kellen Comfort Platelet mean volume (Bld) [Entitic vol] 12.4 fL Normal 9.5-13.5 [facility] Comment on above: Performed By: #### C BC #### [facility] [address] [place], [place] [id number] Kellen Comfort Platelets (Bld) [#/Vol] 167 103/ul Normal 150-450 [facility] Comment on above: Performed By: #### C BC #### [facility] [address] [place], [place] [id number] Kellen Comfort RBC (Bld) [#/Vol] 4.01 106/ul Critically low 4.20-5.40 [facility] Comment on above: Performed By: #### C BC #### [facility] [address] [place], [place] [id number] Kellen Comfort WBC (Bld) [#/Vol] 7.1 103/ul Normal 4.0-11.0 [facility] Comment on above: Performed By: #### C BC #### [facility] [address] [place], [place] [id number] Kellen Comfort CULTURE URINEon 10-18-2018 CULTURE URINE Culture Observations : NORMAL GENITAL JUAN. NO POTENTIAL PATHOGENS SEEN. Normal [facility] Comment on above: Performed By: #### U ACSIND, UMICRO #### [facility] [address] [place], [place] [id number] Kellen Comfort DRUG SCREEN RAPID (URINE)on 10-18-2018 AMP Negative Normal NEGATIVE [facility] Comment on above: Performed By: #### D RUGRPD #### [facility] [address] [place] [address] Kellen Comfort BAR Negative Normal NEGATIVE [facility] Comment on above: Performed By: #### D RUGRPD #### [facility] [address] [place] [address] Kellen Comfort BUP Negative Normal NEGATIVE [facility] Comment on above: Performed By: #### D RUGRPD #### [facility] [address] [place] [address] Kellen Comofrt BZO Negative Normal NEGATIVE [facility] Comment on above: Performed By: #### D RUGRPD #### [facility] [address] [place] [address] Kellen Comfort DIANA Negative Normal NEGATIVE [facility] Comment on above: Performed By: #### D RUGRPD #### [facility] [address] [place] [address] Kellen Comfort CUT-OFFS SEE BELOW Normal [facility] Comment on above: Result Comment: AMP [...] ng/mL Performed By: #### D RUGRPD #### [facility] [address] [place] [address] Kellen Comfort DRUG CUT HEADER DRUG CLASS TEST SYSTEM CUT-OFF CONCENTRATIONS ARE FOLLOWS: Normal [facility] Comment on above: Performed By: #### D RUGRPD #### [facility] [address] [place] [address] Kellen Comfort mAMP Negative Normal NEGATIVE [facility] Comment on above: Performed By: #### D RUGRPD #### [facility] [address] [place] [address] Kellen Comfort MTD Negative Normal NEGATIVE [facility] Comment on above: Performed By: #### D RUGRPD #### [facility] [address] [place] [address] Kellen Comfort OPI Negative Normal NEGATIVE [facility] Comment on above: Performed By: #### D RUGRPD #### [facility] [address] [place] [address] Kellen Comfort OXY Negative Normal NEGATIVE [facility] Comment on above: Performed By: #### D RUGRPD #### [facility] [address] [place] [address] Kellen Comfort PCP Negative Normal NEGATIVE [facility] Comment on above: Performed By: #### D RUGRPD #### [facility] [address] [place] [address] Kellen Comfort PPX Negative Normal NEGATIVE [facility] Comment on above: Performed By: #### D RUGRPD #### [facility] [address] [place] [address] Kellen Comfort TCA Negative Normal NEGATIVE [facility] Comment on above: Performed By: #### D RUGRPD #### [facility] [address] [place] [address] Kellen Comfort THC Negative Normal NEGATIVE [facility] Comment on above: Performed By: #### D RUGRPD #### [facility] [address] [place] [address] Kellen Comfort UA (CLEAN/CATCH) [place] [employer] SAL[employer]/MICRO I F IND.on 10-18-2018 Bilirubin [Mass/Vol] SMALL Normal NEGATIVE [facility] Comment on above: Performed By: #### CHLOE BOTELLO #### [facility] [address] [place] [address] Kellen Comfort BLOOD LARGE Normal NEGATIVE [facility] Comment on above: Performed By: #### U CHLOE THOMAS #### [facility] [address] [address] Kellen Comfort Clarity (U) CLOUDY Normal [facility] Comment on above: Performed By: #### U ACSSARIKA UMICRO #### [facility] [address] [address] Kellen Comfort Color (U) DK. ORANGE Normal YELLOW [facility] Comment on above: Performed By: #### U ACSSARIKA UMICRO #### [facility] [address] [address] Kellen Comfort Glucose [Mass/Vol] Negative Normal NEGATIVE [facility] Comment on above: Performed By: #### U ACSRENE BAUMICRO #### [facility] [address] [place] [address] Kellen Comfort Ketones Ql (U) Negative Normal NEGATIVE [facility] Comment on above: Performed By: #### U ACSSARIKA UMICRO #### [facility] [address] [place] [address] Kellen Comfort Nitrite Ql (U) Negative Normal NEGATIVE [facility] Comment on above: Performed By: #### U RENE THOMASICRO #### [facility] [address] [place] [address] Kellen Comfort pH (Bld) 5.5 Normal 5-9 [facility] Comment on above: Performed By: #### U ACSRENE BAUMICRO #### [facility] [address] [place] [address] Kellen Comfort Protein [Mass/Vol] 30 mg/dl Normal [facility] Comment on above: Performed By: #### U ACSSARIKA UMICRO #### [facility] [address] [address] Kellen Comfort SPEC GRAVITY >=1.030 Normal 1.005-<=1.02 5 [facility] Comment on above: Performed By: #### U ACSSARIKA UMICRO #### [facility] [address] [address] Kellen Comfort UR MICRO IND INDICATED Normal [facility] Comment on above: Performed By: #### U ACSSARIKA, UMICRO #### [facility] [address] [id number] Kellen Comfort Urobilinogen Qn (U) 0.2 EU/dl Normal [facility] Comment on above: Performed By: #### U ACSSARIKA, UMICRO #### [facility] [address] [id number] Kellen Comfort WBC (Bld) [#/Vol] MODERATE Normal NEGATIVE [facility] Comment on above: Performed By: #### U ACSSARIKA, UMICRO #### [facility] [address] [id number] Kellen Comfort URINE MICROSCOPIC ONLYon Bacteria LM.HPF (Urine sed) [#/Area] MODERATE Normal NONE SEEN [facility] Comment on above: Performed By: #### U ACSSARIKA UMICRO #### [facility] [address] [address] Kellen Comfort CAST NONE SEEN Normal NONE SEEN [facility] Comment on above: Performed By: #### U ACSSARIKA UMICRO #### [facility] [address] [address] Kellen Comfort Crystals LM Nom (Urine sed) NONE SEEN Normal NONE SEEN [facility] Comment on above: Performed By: #### U ACSSARIKA, UMICRO #### [facility] [address] [address] Kellen Comfort CULTURE INDICATED Normal [facility] Comment on above: Performed By: #### U ACSSARIKA, UMICRO #### [facility] [address] [address] Kellen Comfort Epithelial cells LM.HPF (Urine sed) [#/Area] MANY Normal [facility] Comment on above: Performed By: #### U ACSSARIKA, UMICRO #### [facility] [address] [address] Kellen Comfort MUCOUS TRACE Normal NONE SEEN [facility] Comment on above: Performed By: #### U ACSSARIKA UMICRO #### [facility] [address] [place], [place] [address] Kellen Moyer RBC (U) [#/Vol] 10-20 Normal 0-2 [facility] Comment on above: Performed By: #### U ACSIND, ALONARO #### [facility] [address] [place], [place] [address] Kellen Moyer WBC (Bld) [#/Vol] 75-100 Normal NONE SEEN [facility] Comment on above: Performed By: #### U ACSIND, ALONARO #### [facility] [address] [place], [place] [address] Kellen Moyer US PREG GROWTHon 10-11-2018 US PREG GROWTH Patient: ANN-MARIE LÓPEZ Exam Date: 10/11/2018 : 1990 Gender:F Ordering : DR. JAIDEN TOTH . Admission #: [id number] Family : Order #: [id number] CLICK HERE TO VIEW EXAM RADIOLOGY REPORT [...] intrauterine with growth detailed above. Dictated by: Makenna Horn M.D. on 10/11/2018 at 16:23 Approved by: Makenna Horn M.D. on 10/11/2018 at 16:24 Normal [facility] CHLAMYDIA/GONOCOCCUS TELLO (SW AB/URINE/PAPon 10-04-2018 Chlamydia trachomatis, TELLO Negative Normal Negative [facility] Comment on above: Performed By: #### C T/NGNA #### [facility] [address] [place] [address] Kellen Moyer Neisseria gonorrhoeae, TELLO Negative Normal Negative [facility] Comment on above: Performed By: #### C T/NGNA #### [facility] [address] [address] Kellen Moyer GROUP B STREP CULTUREon 09-08 S. agalactiae Ag Ql (Unsp spec) Culture Observations: Negative for Group B Streptococcus Normal [facility] Comment on above: Performed By: #### G BSCX #### [facility] [address] [place] [address] Kellen Moyer US PREG PLACENTAon 9 US PREG PLACENTA Patient: ANN-MARIE LÓPEZ Exam Date: 09/02/2018 : 1990 Gender:F Ordering : DR. JAIDEN TOTH . Admission #: [id number] Family : Order #: [id number] CLICK HERE TO VIEW EXAM RADIOLOGY REPORT [...] M.D. on 10/23/2018 at 03:32 Normal [facility] CULTURE URINEon 09-02-2018 CULTURE URINE Culture Observations : Moderate growth of mixed genital juan. No potential pathogens seen. Normal [facility] Comment on above: Performed By: #### U RCX #### [facility] [address] [place] [address] Kellen Comfort UA (CLEAN/CATCH) [place] [employer] SAL[employer]/MICRO I F IND.on 09-02-2018 Bilirubin [Mass/Vol] Negative Normal NEGATIVE [facility] Comment on above: Performed By: #### U ACSIND, UMICRO #### [facility] [address] [place] [address] Kellen Comfort BLOOD Negative Normal NEGATIVE [facility] Comment on above: Performed By: #### U ACSIND, UMICRO #### [facility] [address] [place] [address] Kellen Comfort Clarity (U) CLEAR Normal [facility] Comment on above: Performed By: #### U ACSIND UMICRO #### [facility] [address] [place] [address] Kellen Comfort Color (U) LT. YELLOW Normal YELLOW [facility] Comment on above: Performed By: #### U ACSIND UMICRO #### [facility] [address] [place] [address] Kellen Comfort Glucose [Mass/Vol] Negative Normal NEGATIVE [facility] Comment on above: Performed By: #### U ACSIND UMICRO #### [facility] [address] [place] [address] Kellen Comfort Ketones Ql (U) Negative Normal NEGATIVE [facility] Comment on above: Performed By: #### U ACSIND UMICRO #### [facility] [address] [place] [address] Kellen Comfort Nitrite Ql (U) Negative Normal NEGATIVE [facility] Comment on above: Performed By: #### U ACSIND, UMICRO #### [facility] [address] [place] [address] Kellen Comfort pH (Bld) 6.0 Normal 5-9 [facility] Comment on above: Performed By: #### U ACSSARIKA UMICRO #### [facility] [address] [address] Kellen Comfort Protein [Mass/Vol] Negative Normal [facility] Comment on above: Performed By: #### U ACSSARIKA, UMICRO #### [facility] [address] [id number] Kellen Comfort SPEC GRAVITY >=1.030 Normal 1.005-<=1.02 5 [facility] Comment on above: Performed By: #### U ACSSARIKA UMICRO #### [facility] [address] [place] [address] Kellen Comfort UR MICRO IND INDICATED Normal [facility] Comment on above: Performed By: #### U ACSSARIKA UMICRO #### [facility] [address] [place] [address] Kellen Comfort Urobilinogen Qn (U) 0.2 EU/dl Normal [facility] Comment on above: Performed By: #### U ACSSARIKA UMICRO #### [facility] [address] [place], [place] [phone] Kellen Comfort WBC (Bld) [#/Vol] MODERATE Normal NEGATIVE [facility] Comment on above: Performed By: #### U ACSSARIKA UMICRO #### [facility] [address] [phone] Kellen Comfort URINE MICROSCOPIC ONLYon Bacteria LM.HPF (Urine sed) [#/Area] MODERATE Normal NONE SEEN [facility] Comment on above: Performed By: #### U ACSSARIKA UMICRO #### [facility] [address] [phone] Kellen Comfort CAST NONE SEEN Normal NONE SEEN [facility] Comment on above: Performed By: #### U ACSSARIKA, UMICRO #### [facility] [address] [phone] Kellen Comfort Crystals LM Nom (Urine sed) NONE SEEN Normal NONE SEEN [facility] Comment on above: Performed By: #### U ACSIND, UMICRO #### [facility] [address] [place], [place] [address] Kellen Comfort CULTURE INDICATED Normal [facility] Comment on above: Performed By: #### U ACSIND, UMICRO #### [facility] [address] [place], [place] [address] Kellen Comfort Epithelial cells LM.HPF (Urine sed) [#/Area] FEW Normal [facility] Comment on above: Performed By: #### U ACSIND, UMICRO #### [facility] [address] [place], [place] [address] Kellen Comfort MUCOUS SMALL Normal NONE SEEN [facility] Comment on above: Performed By: #### U ACSIND, UMICRO #### [facility] [address] [place], [place] [address] Kellen Comfort RBC (U) [#/Vol] NONE SEEN Normal 0-2 [facility] Comment on above: Performed By: #### U ACSIND, UMICRO #### [facility] [address] [place], [place] [address] Kellen Comfort WBC (Bld) [#/Vol] 20-50 Normal NONE SEEN [facility] Comment on above: Performed By: #### U ACSIND, UMICRO #### [facility] [address] [place], [place] [address] Kellen Comfort US PREG ANATOMY SINGLEon US PREG ANATOMY SINGLE Patient: ANN-MARIE LÓPEZ Exam Date: 06/12/2018 : 1990 Gender:F Ordering : DR. JAIDEN TOTH . Admission #: [id number] Family : Order #: [id number] CLICK HERE TO VIEW EXAM RADIOLOGY REPORT [...] position. 3. Suspect placenta previa. Dictated by: Makenna Horn M.D. on 06/13/2018 at 08:20 Approved by: Makenna Horn M.D. on 06/13/2018 at 08:26 Normal [facility] Vital Signs Date Time Vital Sign Value Performing Clinician Facility 06-07-2024 09:32-0400 Body mass index (BMI) [Ratio] 38.77 kg/m2 [facility] [employer] Phone[facility] 06-07-2024 09:32-0400 Body weight 105.69 kg [employer] Phone: [facility] 06-07-2024 09:32-0400 Diastolic blood pressure 70 mm[Hg] Sukhjinder Trent DO Work Phone: [facility] 06-07-2024 09:32-0400 Systolic blood pressure 116 mm[Hg] Sukhjinder Trent DO Work Phone: [facility] 12-01-2023 12:18-0400 Body mass index (BMI) [Ratio] 37.34 kg/m2 Shefali Calvillo [employer] Work Phone: [facility] 12-01-2023 12:18-0400 Body temperature 97.3 [degF] Shefali Calvillo [employer] Work Phone: [facility] 12-01-2023 12:18-0400 Body weight 101.79 kg Shefali Calvillo [employer] Work Phone: [facility] 12-01-2023 12:18-0400 Diastolic blood pressure 82 mm[Hg] Shefali Calvillo [employer] Work Phone: [facility] 12-01-2023 12:18-0400 Heart rate 95 /min Shefali Calvillo [employer] Work Phone: [facility] 12-01-2023 12:18-0400 SaO2% (BldA) [Mass fraction] 97 % Shefali Calvillo [employer] Work Phone: [facility] 12-01-2023 12:18-0400 Systolic blood pressure 116 mm[Hg] Shefali Calvillo [employer] Work Phone: [facility] 01-27-2022 12:15-0500 Body height 167.64 cm Cecilia Perez Other [employer] Other 01-27-2022 12:15-0500 Body mass index (BMI) [Ratio] 34.54 kg/m2 Cecilia Perez Other [employer] Other 01-27-2022 12:15-0500 Body temperature 98.4 [degF] Cecilia Ana Other [employer] Other 01-27-2022 12:15-0500 Body weight 97.07 kg Cecilia Ana Other [employer] Other 01-27-2022 12:15-0500 Respiratory rate 18 /min Cecilia Ana Other [employer] Other 01-27-2022 12:15-0500 SaO2% (BldA) [Mass fraction] 97 % Cecilia Ana Other [employer] Other 04-29-2021 12:40-0400 Body height 167.64 cm Cecilia Zuñigamond Other [employer] Other 04-29-2021 12:40-0400 Body mass index (BMI) [Ratio] 35.34 kg/m2 Cecilia Ana Other [employer] Other 04-29-2021 12:40-0400 Body temperature 98 [degF] Cecilia Ana Other [employer] Other 04-29-2021 12:40-0400 Body weight 99.34 kg Cecilia Ana Other [employer] Other 04-29-2021 12:40-0400 Diastolic blood pressure 88 mm[Hg] Cecilia Ana Other [employer] Other 04-29-2021 12:40-0400 Respiratory rate 18 /min Cecilia Ana Other [employer] Other 04-29-2021 12:40-0400 SaO2% (BldA) [Mass fraction] 98 % Cecilia Perez Other [employer] Other 04-29-2021 12:40-0400 Systolic blood pressure 129 mm[Hg] Cecilia Perez Other [employer] Other Encounters Encounter Date Encounter Type Care Provider Facility Start: 07-03-2024 End: 07-03-2024 [employer] Result Encounter Generic External Data Provider [facility] External Department Unsolicited Start: 07-03-2024 End: 07-03-2024 [facility] Result Encounter Generic External Data Provider [facility] External Department Unsolicited Start: 06-07-2024 End: 06-07-2024 Bamboo flowsheet Sukhjinder Trent DO Work Phone: [facility] Start: 06-07-2024 End: 06-07-2024 Bamboo flowsheet Sukhjinder Trent DO Work Phone: [facility] Start: 06-07-2024 End: 06-07-2024 Office outpatient visit 15 minutes Sukhjinder Trent DO Work Phone: [facility] Comment on above: PCOS (polycystic ova santana syndrome); Encounter for weight management; Menorrhagia with irregular cycle Start: 06-07-2024 End: 06-07-2024 ambulatory SUKHJINDER TRENT Not Available Start: 12-01-2023 End: 12-01-2023 Bamboo flowsheet Shefali Calvillo [employer] Work Phone: [facility] Start: 12-01-2023 End: 12-01-2023 Bamboo flowsheet Shefali Calvillo [employer] Work Phone: [facility] Start: 12-01-2023 End: 12-01-2023 ambulatory SHEFALI CALVILLO Not Available Start: 12-01-2023 End: 12-01-2023 Office outpatient visit 15 minutes Shefali Calvillo [employer] Work Phone: [facility] Comment on above: Acute cough (Primary Dx); Acute bronchitis, unspecified organism Start: 09-09-2023 End: 09-09-2023 Departed Referred PHYSICIAN NO [facility] [address] Work Phone: Start: 09-09-2023 End: 09-09-2023 ambulatory PHYSICIAN NO [facility] Work Phone: Start: 08-12-2023 End: 08-12-2023 Emergency department patient visit RIYA HINOJOSA [facility] Start: 04-05-2022 End: 04-06-2022 ambulatory PROVIDER UNKNOWN [facility] Start: 04-05-2022 End: 04-05-2022 Subsequent hospital visit by physician [facility] Start: 01-27-2022 End: 01-27-2022 ambulatory Cecilia Ana Other [email or web address] Other Start: 01-27-2022 Office outpatient vi sit 25 minutes Cecilia Ana [facility] Start: 04-29-2021 End: 04-29-2021 ambulatory Cecilia Ana Other [email or web address] Other Start: 04-29-2021 Office outpatient vi sit 25 minutes Cecilia Ana [facility] Start: 06-01-2019 End: 06-02-2019 Patient encounter procedure JAIDEN TOTH Facility:[facility] Start: 04-25-2019 End: 04-25-2019 Patient encounter procedure JAIDEN TOTH Facility:[facility] Start: 03-20-2019 End: 03-21-2019 Patient encounter procedure RIYA MICAELA Facility:[facility] Start: 03-13-2019 End: 03-14-2019 Patient [...] Date Procedure Procedure Detail Performing Clinician Start: 07-03-2024 ALL CBC WITH AUTO DIFF Sukhjinder Trent DO Work Phone: Start: 12-01-2023 STATUS COVID-19/FLU Abhi Koehlerdemetrice MONUMENT ERECTOR Work Phone: Start: 04-29-2022 Microscopic observat ion [Identifier] in Cervix by Cyto stain Sukhjinder Trent DO Work Phone: Start: 04-29-2022 Cytp cerv/vag auto t hin layer prep mnl screen Francia Rock MONUMENT ERECTOR Work Phone: Start: 10-18-2018 Delivery of Products of Conception, External Approach JAIDEN TOTH Start: 10-18-2018 Drainage of Amniotic Fluid, Therapeutic from Products of Conception, Via Natural or Artificial Opening JAIDEN TOTH Start: 10-18-2018 Repair Perineum Skin , External Approach JAIDEN TOTH Plan of Treatment Date Care Activity Detail Author Start: 04-30-2027 Screening for malign ant neoplasm of cervix [facility] Start: 10-08-2024 Influenza vaccination Influenz a Vaccine (Season Ended) [facility] Start: 07-19-2024 End: 07-19-2024 Patient encounter procedure 07/19/2024 9:30 AM EDT Procedure Visit [facility] [address] [place] [address] Sukhjinder Newman, DO [address] [place], [place] [id number] [facility] Start: 07-03-2024 End: 07-03-2024 Patient encounter procedure 07/03/2024 11:40 AM EDT Office Visit [facility] [address] [place] [address] Sukhjinder Newman, DO [address] [place] [address] [facility] Start: 06-07-2024 End: 06-07-2025 DHEA DHEA Lab Routine PCOS (polycystic ovarian syndrome) Encounter for weight management Menorrhagia with irregular cycle Expected: 06/07/2024 (Approximate), Expires: 06/07/2025 [facility] Comment on above: Expected: 06/07/2024 (Approximate), Expires: 06/07/2025 Start: 06-07-2024 End: 06-07-2025 Progesterone Progesterone Lab Routine PCOS (polycystic ovarian syndrome) Encounter for weight management Menorrhagia with irregular cycle Expected: 06/07/2024 (Approximate), Expires: 06/07/2025 [facility] Comment on above: Expected: 06/07/2024 (Approximate), Expires: 06/07/2025 Start: 06-07-2024 End: 12-08-2024 US Pelvis US Pelvis w/ TV Imaging Routine PCOS (polycystic ovarian syndrome) Encounter for weight management Menorrhagia with irregular cycle Expected: 06/07/2024, Expires: 12/08/2024 [facility] Comment on above: Expected: 06/07/2024 , Expires: 12/08/2024 Start: 06-07-2024 End: 06-07-2024 Patient encounter procedure 06/07/2024 9:10 AM EDT Office Visit [facility] [address] [place] [phone] Sukhjinder Newman, [address] [place] [address] Arrived [facility] Comment on above: Arrived Start: 10-09-2023 Influenza vaccination Influenza Vacc ine (#1) [facility] Start: 09-07-2021 Influenza vaccination Flu vaccine (# 1) [facility] Start: 04-15-2021 Screening for malign ant neoplasm of cervix [facility] Start: 04-15-2012 Screening for malign ant neoplasm of cervix Pap Smear [facility] Start: 04-15-2010 DTaP/Tdap/Td vaccine (1 - Tdap) DTaP/Tdap/Td vaccine (1 - Tdap) [facility] Start: 1991 COVID-19 Vaccine (#1) COVID-19 Vacci ne (#1) [facility] CBC W Auto Different ial panel - Blood CBC and differential Lab Routine PCOS (polycystic ovarian syndrome) Encounter for weight management Menorrhagia with irregular cycle Ordered: 06/07/2024 [facility] Comment on above: Ordered: 06/07/2024 DHEA-sulfate DHEA-sulfate Lab Routine PCOS (polycystic ovarian syndrome) Encounter for weight management Menorrhagia with irregular cycle Ordered: 06/07/2024 [facility] Comment on above: Ordered: 06/07/2024 Estradiol Estradiol Lab Ro utine PCOS (polycystic ovarian syndrome) Encounter for weight management Menorrhagia with irregular cycle Ordered: 06/07/2024 [facility] Comment on above: Ordered: 06/07/2024 Follicle stimulating hormone Follicle stimulating hormone Lab Routine PCOS (polycystic ovarian syndrome) Encounter for weight management Menorrhagia with irregular cycle Ordered: 06/07/2024 [facility] Comment on above: Ordered: 06/07/2024 Glucose measurement estimated from glycated hemoglobin [facility] hCG, quantitative, hCG, quantitative, Lab Routine PCOS (polycystic ovarian syndrome) Encounter for weight management Menorrhagia with irregular cycle Ordered: 06/07/2024 [facility] Work Phone: Comment on above: Ordered: 06/07/2024 Hemoglobin A1c/Hemoglobin.total in Blood Hemoglobin A1c Lab Routine PCOS (polycystic ovarian syndrome) Encounter for weight management Menorrhagia with irregular cycle Ordered: 06/07/2024 [facility] Comment on above: Ordered: 06/07/2024 Luteinizing hormone Luteinizing hormone Lab Routine PCOS (polycystic ovarian syndrome) Encounter for weight management Menorrhagia with irregular cycle Ordered: 06/07/2024 [facility] Comment on above: Ordered: 06/07/2024 Thyrotropin [Units/volume] in Serum or Plasma TSH Lab Routine PCOS (polycystic ovarian syndrome) Encounter for weight management Menorrhagia with irregular cycle Ordered: 06/07/2024 [facility] Comment on above: Ordered: 06/07/2024 Thyroxine (T4) free [Mass/volume] in Serum or Plasma T4, free Lab Routine PCOS (polycystic ovarian syndrome) Encounter for weight management Menorrhagia with irregular cycle Ordered: 06/07/2024 [facility] Comment on above: Ordered: 06/07/2024 End: 04-05-2022 Varicella Zoster Antibody, IgG [facility] Work Phone: Comment on above: Once for 1 Occurrenc es starting 04/05/2022 until 04/05/2022 [facility] Immunizations Immunization Date Immunization Notes Care Provider Maria Isabel zee 01-14-2022 influenza, injectabl e, quadrivalent, preservative free Shefali Kampfer MONUMENT E[employer]OR Work Phone: [facility] 01-14-2022 influenza virus vacc ine, unspecified formulation Shefali Kampfer MONUMENT ERECTOR Work Phone: [facility] 07-24-2019 tetanus toxoid, redu kayla diphtheria toxoid, and acellular pertussis vaccine, adsorbed Shefali Kampfer MONUMENT ERECTOR Work Phone: [facility] 11-23-2018 Influenza, injectabl e, Madin Eagle Canine Kidney, preservative free, quadrivalent Shefali Kampfer MONUMENT ERECTOR Work Phone: [facility] 03-08-2018 influenza, injectabl e, quadrivalent, contains preservative Shefali Kampfer MONUMENT ERECTOR Work Phone: [facility] 02-27-2018 Influenza, injectabl e, Madin Eagle Canine Kidney, preservative free, quadrivalent Shefali Kampfer MONUMENT ERECTOR Work Phone: [facility] 02-27-2018 tuberculin skin test ; purified protein derivative solution, intradermal Hsefali Kampfer MONUMENT ERECTOR Work Phone: [facility] 12-05-2014 influenza, seasonal, injectable Shefali Kampfer MONUMENT ERECTOR Work Phone: [facility] 10-20-1996 hepatitis B vaccine, adult dosage Shefali Kampfer MONUMENT ERECTOR Work Phone: [facility] 09-19-1996 diphtheria, tetanus toxoids and acellular pertussis vaccine, unspecified formulation Shefali Kampfer MONUMENT ERECTOR Work Phone: [facility] 09-19-1996 hepatitis B vaccine, pediatric or pediatric/adolescent dosage Shefali Kampfer MONUMENT ERECTOR Work Phone: [facility] 09-19-1996 measles, mumps and rubella virus vaccine Shefali Calvillo MONUMENT ERECTOR Work Phone: [facility] 09-19-1996 trivalent poliovirus vaccine, live, oral Shefali Calvillo MONUMENT ERECTOR Work Phone: [facility] 08-05-1995 hepatitis B vaccine, pediatric or pediatric/adolescent dosage Shefali Calvillo MONUMENT ERECTOR Work Phone: [facility] 06-05-1995 hepatitis B vaccine, adult dosage Shefali Calvillo MONUMENT ERECTOR Work Phone: [facility] 10-20-1992 diphtheria, tetanus toxoids and acellular pertussis vaccine, unspecified formulation Shefali Calvillo MONUMENT ERECTOR Work Phone: [facility] 10-20-1992 trivalent poliovirus vaccine, live, oral Shefali Calvillo MONUMENT ERECTOR Work Phone: [facility] 07-02-1992 haemophilus influenz ae type b vaccine, conjugate unspecified formulation Shefali Calvillo MONUMENT ERECTOR Work Phone: [facility] 07-02-1992 measles, mumps and rubella virus vaccine Shefali Calvillo MONUMENT ERECTOR Work Phone: [facility] 1991 diphtheria, tetanus toxoids and pertussis vaccine Shefali Calvillo MONUMENT ERECTOR Work Phone: [facility] 1991 haemophilus influenz ae type b vaccine, conjugate unspecified formulation Shefali Calvillo MONUMENT ERECTOR Work Phone: [facility] 1991 diphtheria, tetanus toxoids and pertussis vaccine Shefali Gordonfer MONUMENT ERECTOR Work Phone: [facility] 1991 haemophilus influenz ae type b vaccine, conjugate unspecified formulation Shefali Calvillo MONUMENT ERECTOR Work Phone: [facility] 1991 trivalent poliovirus vaccine, live, oral Shefali Calvillo MONUMENT ERECTOR Work Phone: [facility] 1991 diphtheria, tetanus toxoids and pertussis vaccine Shefali Gordonfer MONUMENT ERECTOR Work Phone: [facility] 1991 haemophilus influenz ae type b vaccine, conjugate unspecified formulation Shefali Rajinder MONUMENT ERECTOR Work Phone: [facility] 1991 trivalent poliovirus vaccine, live, oral Shefali Rajinder MONUMENT ERECTOR Work Phone: [facility] Payers Date Payer Category Payer Medicaid [id number] 2023 Medicaid [id number] 2023 Private Health Insurance [employer] [id number] 2023 Medicaid [id number] 2023 Self-pay [id number] 1991 Unknown [id number] [id number]. 593 1991 Unknown [id number] [id number]. 593 1991 Unknown [id number] [id number]. 593 1991 Unknown [id number] 2.16840.1.519398.3.579.2. 593 1991 Unknown [id number] 2.16840.1.405040.3.579.2. 593 1991 Unknown [id number] 2.16840.1.078291.3.579.2. 593 1991 Unknown [id number] 2.16.840.1.174833.3.579.2. 593 1991 Unknown [id number] 2.16.840.1.208852.3.579.2. 593 1991 Unknown [id number] 2.16.840.1.188704.3.579.2. 593 1991 Unknown [id number] 2.16.840.1.691526.3.579.2. 593 1991 Unknown [id number] 2.16.840.1.109182.3.579.2. 593 1991 Unknown [id number] 2.16.840.1.570281.3.579.2. 1286 1991 Unknown [id number] 2.16.840.1.857257.3.579.2. 1259 1991 Unknown [id number] 2.16.840.1.272984.3.579.2. 1259 1959 Unknown [id number] Unknown [id number] [id number] Unknown [id number] [id number]. 531 Worker's Compensation Social History Date Type Detail Facility Start: 10-05-2022 End: 12-01-2023 [facility] Tobacco smoking status OH[facility] Tobacco smoking consumption unknown [facility] Phone: Start: 1990 Sex Assigned At Not on file B [facility] Phone: Start: 09-18-2016 End: 10-05-2022 Tobacco smoking status OHIS Never smoked tobacco (finding) [facility] Start: 1990 Sex Assigned At Female [facility] Start: 10-05-2022 Tobacco use and exposure Smokeless tobacco non-user [facility] Start: 10-05-2022 End: 06-07-2024 Alcoholic beverage intake Lifetime non-drinker (finding) [facility] Start: 10-05-2022 End: 12-01-2023 History of Social function [facility] Start: 10-05-2022 Alcohol Comment Caffeine: none [facility] History of Present illness Narrative 06-07-2024 Yaneth Qureshi, RESTAURANT MANAGER - 06/07/2024 9:10 AM EDT Note Date & Type Note Facility 06-07-2024 History of Presen t illness Narrative Reason for Appointment: Patient ID: Ann-Marie López is a 34 y.o. female who presents for Discuss PCOS Patient presents today for Consult appointment. 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, antepartum 06/23/2018 Depression (CMS/HCC) 12/01/2023 General counseling and advice for contraceptive management 12/01/2023 Heavy menstrual bleeding 12/01/2023 High risk sexual behavior 12/01/2023 Intractable migraine with aura without status migrainosus (CMS/HCC) 12/01/2023 Irregular periods 12/01/2023 Leukocytes in urine 12/01/2023 Obesity 12/01/2023 Request for sterilization 09/17/2019 Screening for malignant neoplasm of cervix 12/01/2023 Shingles 12/01/2023 Weight gain 12/01/2023 PCOS (polycystic ovarian syndrome) 06/07/2024 Encounter for weight management 06/07/2024 Resolved Ambulatory Problems Diagnosis Date Noted No Resolved Ambulatory Problems Past Medical History: Diagnosis Date Allergies Asthma History of being hospitalized HISTORY PAST MEDICAL HISTORY SOCIAL HISTORY Past Medical History: Diagnosis Date Allergies Asthma History of being hospitalized Childbirth: 02/2011, 02/2013, 10/2018, 09/2019 PCOS (polycystic ovarian syndrome) Social History Tobacco Use Smoking status: Never Smokeless tobacco: Never Substance Use Topics Alcohol use: Never Comment: Caffeine: none Drug use: Never FAMILY HISTORY Family History Problem Relation Name Age of Onset Diabetes Mother Hyperlipidemia Mother Cervical cancer Mother Hypertension Father Diabetes Father Cancer Maternal Grandmother pancreus, bone, cerivcal Hypertension Other both sides Hyperlipidemia Other mom's side Diabetes Other both sides Cancer Other both sides of family SURGICAL HISTORY Past Surgical History: Procedure Laterality Date COLPOSCOPY 2018 nig- high risk HPV LIPOSUCTION 2022 OTHER SURGICAL HISTORY 01/2020 Tubes removed REVIEW OF SYSTEMS Review of Systems: Review of Systems Constitutional: Negative. HENT: Negative. Eyes: Negative. Respiratory: Negative. Cardiovascular: Negative. Gastrointestinal: Negative. Genitourinary: Negative. Musculoskeletal: Negative. Skin: Negative. Neurological: Negative. All other systems reviewed and are negative. Hematological: Negative. Endocrine: Negative. Allergic/Immunologic: Negative. OBJECTIVE Objective: Physical Exam Constitutional: Appearance: Normal appearance. She is well-developed. Cardiovascular: Rate and Rhythm: Normal rate and regular rhythm. Pulmonary: Effort: Pulmonary effort is normal. Breath sounds: Normal breath sounds. Abdominal: General: Bowel sounds are normal. There is no distension. Palpations: Abdomen is soft. Tenderness: There is no abdominal tenderness. There is no guarding or rebound. Musculoskeletal: General: No swelling. Normal range of motion. Right lower leg: No edema. Left lower leg: No edema. Neurological: Mental Status: She is alert and oriented to person, place, and time. Skin: General: Skin is warm and dry. Psychiatric: Mood and Affect: Mood normal. Behavior: Behavior normal. Vitals and nursing note reviewed. Exam conducted with a supervisor phosphoric acid present. Vitals: Estimated body mass index is 38.77 kg/m as calculated from the following: Height as of 05/28/22: 5' 5 . Weight as of this encounter: 233 lb. BP: 116/70 No LMP recorded. ASSESSMENT & PLAN ICD-10-CM 1. PCOS (polycystic ovarian syndrome) E28.2 2. Encounter for weight management Z76.89 3. Menorrhagia with irregular cycle N92.1 [place] presents today for PCOS and weight gain. Discussed Adipex and GLP-1 medication. Patient voiced she had been on Adipex in the past and did not like how that made her feel. Patient desires to start Metformin and return to clinic in 4 weeks for Annual and initiate GLP-1 medication. Discussed heavy irregular cycles as well and discussed Ablation. Patient already has bilateral tubal ligation. Patient desires to proceed to OR for management. Patient to RTC in 4 weeks. Ultrasound and labs given to patient to have obtained prior to pre-op appointment. Documented by Yaneth Qursehi LPN on behalf of: Sukhjinder Newman DO documented in this encounter [facility] History of Present illness Narrative 12-01-2023 Shefali KoehleramarisisraARNAUD - 12/01/2023 12:00 PM EDT Note Date & Type Note Facility 12-01-2023 History of Presen t illness Narrative Images from the original note were not included. Ann-Marie López is a 33 y.o. female presents with chief complaint of URI HPI: Patient is here for sx of vomiting, cough, sweats, and chest tightness that started since Tuesday. She has been taking tylenol and robitussin. Son was sick last week with strep. URI This is a new problem. The current episode started in the past 7 days. The problem has been unchanged. The maximum temperature recorded prior to her arrival was 102 - 102.9 F. SUBJECTIVE: MEDICATIONS: ALLERGIES Current Outpatient Medications Medication Instructions albuterol (2.5 MG/3ML) 0.083% nebulizer solution 3 ml as needed Inhalation every 6 hrs PRN for 30 day(s) Allergies Allergen Reactions Penicillins Hives and Unknown Vancomycin Red man Syndrome PAST MEDICAL HISTORY: SOCIAL HISTORY SURGICAL HISTORY: Past Medical History: Diagnosis Date Allergies Asthma ([facility]) History of being hospitalized Childbirth: 02/2011, 02/2013, 10/2018, 09/2019 PCOS (polycystic ovarian syndrome) Social History Tobacco Use Smoking status: Never Smokeless tobacco: Never Substance Use Topics Alcohol use: Never Comment: Caffeine: none Drug use: Never Past Surgical History: Procedure Laterality Date COLPOSCOPY 2018 nig- high risk HPV LIPOSUCTION 2022 OTHER SURGICAL HISTORY 01/2020 Tubes removed REVIEW OF SYMPTOMS: Review of Systems All other systems reviewed and are negative. OBJECTIVE: Vitals: 12/01/23 1218 Temp: 97.3 F Physical Exam Vitals reviewed. HENT: Head: Normocephalic and atraumatic. Ears: Comments: B/L TM: dull Nose: Mucosal edema, congestion and rhinorrhea present. Rhinorrhea is clear. Right Turbinates: Swollen. Left Turbinates: Swollen. Mouth/Throat: Mouth: Mucous membranes are moist. Comments: PND Eyes: Pupils: Pupils are equal, round, and reactive to light. Cardiovascular: Rate and Rhythm: Normal rate and regular rhythm. Pulses: Normal pulses. Heart sounds: Normal heart sounds. Pulmonary: Effort: Pulmonary effort is normal. Comments: Slight wheeze, clears with cough Musculoskeletal: Cervical back: Normal range of motion and neck supple. Right lower leg: No edema. Left lower leg: No edema. Skin: General: Skin is warm and dry. Capillary Refill: Capillary refill takes less than 2 seconds. Findings: No rash. Neurological: General: No focal deficit present. Mental Status: She is alert and oriented to person, place, and time. ASSESSMENT AND PLAN: Assessment/Plan Diagnoses and all orders for this visit: Acute cough - STATUS COVID-19/FLU Acute bronchitis, unspecified organism - albuterol HFA 90 mcg/act inhaler; Inhale 2 puffs every 4 (four) hours if needed for wheezing - benzonatate (Tessalon Perles) 100 MG capsule; Take 1 capsule (100 mg) by mouth 3 (three) times a day as needed for cough for up to 5 days Do not crush or chew. -Complete medication as prescribed. Patient advised to increase fluid intake, use otc and humidify the air. Aerosal tx as prescribed. May use tylenol as needed. F/U if not improving. To ER or Urgent Care if symptoms worsen or fever >101.5. Treatment options discussed. All questions answered. Patient voiced understanding. documented in this encounter [facility] Evaluation note 01-27-2022 Note Date & Type [...] (suspected) exposure to covid-19 (ICD-10 - Z20.822) [email or web address] Other Evaluation note 04-29-2021 Note Date & [...] days. Apr, Hematuria, unspecified (ICD-10 - R31.9) [email or web address] Other Evaluation note Note Date & Type Note Facility Evaluation note No assessment information availa [facility] Work Phone: Evaluation note Note Date & Type Note Facility Evaluation note Diagnosis Acute cough- Primary Acute bronchitis, unspecified organism documented in this encounter [facility] Evaluation note Note Date & Type Note Facility Evaluation note Diagnosis PCOS (polycystic ovarian syndrome) Polycystic ovaries Encounter for weight management Menorrhagia with irregular cycle documented in this encounter [facility] History general Narrative - Reported Note Date & Type Note Facility History general Narrative - Reported Type Surgical History salpingectomy Hospitalization History childbirth [facility] [employer] Other Summary Purpose Family History Relationship Condition Age at Onset Recorded Date/T loan father Hypertension Unknown mother Diabetes mellitus Unknown Advance Directives Advance Directive Response Recorded Date/ Time Advance Directives No July 17 19 7:35am Chief Complaint and Reason for Visit Chief Complaint [facility] Additional Source Comments INFORMATION SOURCE (unrecogn ized section and content) DATE CREATED AUTHOR 06/04/2019 [facility] DATE CREATED AUTHOR AUTHOR'S ORGANIZ ATION [facility] DATE CREATED AUTHOR AUTHOR'S ORGANIZ ATION 08/13/2023 [facility] DATE CREATED AUTHOR AUTHOR'S ORGANIZ ATION 09/11/2023 [facility] DATE CREATED AUTHOR AUTHOR'S ORGANIZ ATION 06/12/2024 [facility] EPIC REASON FOR VISIT (unrecogniz ed section and content) Reason Comments URI Reason Comments Discuss PCOS Care Teams (unrecognized sec tion and content) Team Status: Active Member Role Status Dates PHYSICIAN NO FAMILY Primary Care Provider Active Team Status: Inactive Member Role Status Dates PHYSICIAN NO FAMILY Primary Care Provider Active Start: September 09, 2023 End: September 09, 2023 Cecilia Sutton APRN Attending Provider Active Start: September 09, 2023 End: September 09, 2023 Operations And Maintenance Supervisor Relationship Specialty Start Date End Date Riya Hinojosa MD [address] [place] [address] PCP - General Family Medicine 06/15/22 Operations And Maintenance Supervisor Relationship Specialty Start Date End Date Riya Hinojosa MD [address] [place] [address] PCP - General Family Medicine 06/15/22 Operations And Maintenance Supervisor Relationship Specialty Start Date End Date Riya Hinojosa MD [address] [place] [address] PCP - General Family Medicine 06/15/22 Noemi Gannon PCP - [facility] 02/08/24 Operations And Maintenance Supervisor Relationship Specialty Start Date End Date Riya Hinojosa MD [address] [place] [address] PCP - General Family Medicine 06/15/22 Noemi Gannon PCP - [facility] 02/08/24 Operations And Maintenance Supervisor Relationship Specialty Start Date End Date Riya Hinojosa MD [address] [place] [address] PCP - General Family Medicine 06/15/22 Noemi Gannon PCP - [facility] 02/08/24 Goals (unrecognized section and content) Goals may be documented in a n alternate section FOR RECORDS PERTAINING TO PATIENTS WHO ARE [...] BE BASED ON THE PRIMARY CLINICAL RECORDS. [employer] [facility]. provides no warranty or guarantee of the accuracy or completeness of information in this document.
[2024-07-09 15:13] LABS: Age Gdln ACOG Testing Note (.); HPV Aptima Positive (Negative); IGP, Aptima HPV, rfx 16/18,45 Note (.)
== END 2024-07-03 19:13 | disposition home or self-care (01) ==
LOC: LAB 19:12
PROVIDERS: PCP Family Medicine; Visit Provider Obstetrics & Gynecology
DX: Z01.419 Encounter for gynecological examination (general) (routine) without abnormal findings (principal); E28.2 Polycystic ovarian syndrome; Z76.89 Persons encountering health services in other specified circumstances; N92.1 Excessive and frequent menstruation with irregular cycle
CPT/HCPCS: 36415; 82626; 82627; 82670; 83001; 83002; 83036; 84144; 84439; 84443; 84702; 85025; 87624; 88175

== ENCOUNTER 2024-07-24 15:29 | Outpatient (OUT) | payer OTHER, MEDICAID, SELFPAY ==
--- OUTSIDE RECORDS SUMMARY | 2024-07-27 15:52 | XMS_ITS | CCD ---
Author Organization [facility] Care Team Providers Care Manager Money Name Role Phone JAIDEN TOTH Admitting Unavailable [...] Referring Unavailable RIYA HINOJOSA Primary Care Unavailable DO, LANDON Q Attending Unavailable NO FAMILY, PHYSICIAN Primary Care Provider Unava ilable BURAK Sutton Attending Provider [phone] Riya Hinjoosa MD Primary Care Provider Noemi Gannon Unavailable Unavailable TRENT, SUKHJINDER Attending Unavailable TRENT, SUKHJINDER Attending Unavailable RIYA HINOJOSA Attending Unavailable TRENT, SUKHJINDER Attending Unavailable SHEFALI CALVILLO Attending Unavailable NO FAMILY, PHYSICIAN Primary Care Unavailable Cecilia Sutton Admitting Unavailable Cecilia Sutton Attending Unavailable Trent, Sukhjinder Admitting Unavailable Sukhjinder Newman Attending Unavailable Allergies Allergy Classification Reported Allergen(s) Allergy Type Date of Onset Reaction(s) Facility (2 sources) Penicillins; Translations: [PENICILLINS] Drug allergy (disorder) 09-16-[address] [facility] Repository (2 sources) Penicillin G Drug Allergy [facility] Other (15 sources) Vancomycin; Translations: [VANCOMYCIN] Drug Allergy 01-25-20 [facility] Repository (14 sources) Penicillins Drug Intolerance 12-01-19 24 Hives, [facility] (1 source) Penicillin Drug Allergy 01-28-20 22 [facility] Repository Medications Current Medications Medication Drug Class(es) Dates Sig (Normalized) Sig (Original) [id number] 200 actuat albuterol 0.09 mg/actuat metered dose [...] (eight) hours 05/28/2022 12/01/2023 Discontinued (Therapy completed) escitalopram 5 mg oral tablet (3 sources) Serotonin Reuptake Inhibitor Start: 07-19-2024 End: 10-17-2024 take 1 tablet by mouth once daily escitalopram (Lexapro) 5 MG tablet Indications: Other depression Take 1 tablet (5 mg) by mouth Daily 90 tablet 07/19/2024 10/17/2024 Active fluconazole 50 mg oral tablet (1 source) Azole Antifungal Start: 04-29-2021 Diflucan 50 MG 1 tablet Orally as directed Take 1 tablet p.o. at onset of symptoms, repeat in 7 days. Apr, Active 24 hr metFORMIN hydrochloride 500 mg extended release oral tablet (12 sources) Biguanide Start: 07-19-2024 take 2 tablets by mouth every twenty-four hours at mealtime metFORMIN XR (Glucophage-XR) 500 MG 24 hr tablet Indications: Pre-diabetes Take 2 tablets (1,000 mg) by mouth in the morning. Take with meals. Do not crush, chew, or split. 180 tablet 1 07/19/2024 Active Start: 07-19-2024 take 2 tablets by mo uth every twenty-four hours at mealtime metFORMIN XR (Glucophage-XR) 500 MG 24 hr tablet Indications: Pre-diabetes Take 2 tablets (1,000 mg) by mouth in the morning. Take with meals. Do not crush, chew, or split. 180 tablet 1 07/19/2024 Active Start: 06-07-2024 End: 07-19-2024 take 1 tablet by mouth every twenty-four hours at mealtime metFORMIN XR (Glucophage-XR) 500 MG 24 hr tablet Indications: PCOS (polycystic ovarian syndrome) , Encounter for weight management , Menorrhagia with irregular cycle Take 1 tablet (500 mg) by mouth in the evening. Take with meals Do not crush, chew, or split. 30 tablet 6 06/07/2024 07/19/2024 Discontinued nitrofurantoin, macrocrystals 25 mg / nitrofurantoin, monohydrate [...] Start: 09-10-2014 TB Test Sep, 0.5 mL Tirzepatide (Mounjaro) 2.5 MG/0.5ML solution auto-injector (5 sources) Start: 07-04-2024 End: 07-24-2024 inject 0.5 mL by subcutaneous injection every week Tirzepatide (Mounjaro) 2.5 MG/0.5ML solution auto-injector Indications: Weight gain Inject 0.5 mL under the skin 1 (one) time per week 2 mL 07/04/2024 07/24/2024 Discontinued (Other) Start: 07-04-2024 End: 08-03-2024 inject 0.5 mL by subcutaneous injection every week Tirzepatide (Mounjaro) 2.5 MG/0.5ML solution auto-injector Indications: Weight gain Inject 0.5 mL under the skin 1 (one) time per week 2 mL 07/04/2024 08/03/2024 Active Problems Active Problems Problem Classification Problem Date Documented Date Episodic/Chronic Acute bronchitis (2 sources) Acute bronchitis; Translations: [Acute bronchitis, unspecified] 12-01-2023 Episodic Administrative/social admission (16 sources) Encounter for pre-employment examination; Translations: [Patient encounter status] Onset: 04-05-2022 Episodic Anxiety disorders (15 sources) Anxiety disorder, unspecified; Translations: [Anxiety] Onset: 10-30-2018 12-01-2023 Chronic Asthma (2 sources) Acute exacerbation of asthma; Translations: [Acute asthma exacerbation] Chronic Cancer of cervix (1 source) Low grade squamous intraepithelial lesion on cervical Papanicolaou smear; Translations: [Low grade squamous intraepithelial lesion on cytologic smear of cervix (LGSIL)] 07-24-2024 Episodic Diabetes mellitus without complication (2 sources) Prediabetes; Translations: [Prediabetes] 07-19-2024 Episodic Headache; including migraine (14 sources) Refractory migraine with aura; Translations: [Migraine with aura, intractable, without status migrainosus] Onset: 12-01-2023 12-01-2023 Chronic Influenza (1 source) Influenza due to unidentified influenza virus with other respiratory manifestations; Translations: [FLU D/T UNIDENT FLU VIR RESP MANIF] Onset: 03-22-2019 Episodic Menstrual disorders (20 sources) Secondary amenorrhea; Translations: [Menorrhagia] Onset: 03-13-2019 12-01-2023 Chronic Mood disorders (16 sources) Depressive disorder; Translations: [Depression] Onset: 12-01-2023 [...] TRI] Onset: 04-26-2019 Episodic Other endocrine disorders (12 sources) Polycystic ovary syndrome; Translations: [Polycystic ovarian syndrome] Onset: 06-07-2024 06-07-2024 Chronic Other female genital disorders (1 source) Other specified noninflammatory disorders of vagina; Translations: [OTH SPEC NONINFLAMMATORY D/O VAGINA] Onset: 04-26-2019 Episodic Other lower respiratory disease (2 sources) Cough; Translations: [Acute cough] 12-01-2023 Episodic Other nutritional; endocrine; and metabolic disorders (14 sources) Obesity; Translations: [Obesity, unspecified] Onset: 12-01-2023 12-01-2023 Chronic Other and delivery including normal (6 sources) Encounter for supervision of normal , unspecified, second trimester; Translations: [Encounter for supervision of normal , unspecified, first trimester] Onset: 10-30-2018 Episodic Other screening for suspected conditions (not mental disorders or infectious disease) (19 sources) Encounter for screening for malignant neoplasm of cervix; Translations: [Cancer cervix screening status] Onset: 04-25-2019 12-01-2023 Episodic Other upper respiratory disease (14 sources) Allergic rhinitis due to pollen; Translations: [...] Onset: 09-07-2018 Episodic Contraceptive and procreative management (20 sources) Patient encounter status; Translations: [Encounter for other general counseling and advice on contraception] Onset: 09-17-2019 12-01-2023 Episodic Diabetes or abnormal glucose tolerance complicating ; childbirth; or the puerperium (8 sources) Gestational diabetes mellitus in , unspecified control; Translations: [Gestational diabetes mellitus in childbirth, unspecified control] Onset: 09-07-2018 Episodic Genitourinary symptoms and ill-defined conditions (16 sources) Dysuria; Translations: [Hematuria, unspecified] Onset: 04-29-2021 [...] PUERPER] Onset: 09-02-2018 Episodic Other complications of (14 sources) High risk ; Translations: [Supervision of other high risk pregnancies, second trimester] Onset: 06-23-2018 12-01-2023 Episodic Other nutritional; endocrine; and metabolic disorders (14 sources) Weight increased; Translations: [Abnormal weight gain] Onset: 12-01-2023 12-01-2023 Episodic Other upper respiratory infections (16 sources) Acute pharyngitis, unspecified; Translations: [Streptococcal pharyngitis] Onset: 12-01-2023 Episodic Residual codes; unclassified (14 sources) High risk sexual behavior; Translations: [High risk heterosexual behavior] Onset: 12-01-2023 12-01-2023 Episodic Unclassified (1 source) Contact with and (suspected) exposure to covid-19 Z20.822 Urinary tract infections (1 source) Urinary tract infection, site not specified Onset: 04-29-2021 Resolved: 04-29-2021 Episodic Viral infection (14 sources) Herpes zoster; Translations: [Zoster without complications] Onset: 12-01-2023 12-01-2023 Episodic Results Test Name Value Interpretation Reference Range Facility Colposcopyon 07-24-2024 Comfort LopezMARCELINO 07/24/2024 2:05 PM Colposcopy Date/Time: 07/24/2024 10:21 AM Performed by: Sukhjinder Newman DO Authorized by: Sukhjinder Newman DO Procedure location: cervix Consent: Patient questions answered: yes Risks and benefits of the procedure and its alternatives discussed: yes Consent obtained: Written Consent given by: Patient Indication: Other indication(s): clinical abnormality Pre-procedure: Prep solution(s): acetic acid Procedure: Colposcopy with: endocervical curettage Colposcopy details: Colposcopy: Patient is doing well and has no complaints. Pap results have been reviewed with the patient in great detail and patient voiced understanding. Patient presents today for a Colposcopy with ECC. Patient was placed in dorsal lithotomy position with feet in stirrups, a sterile speculum was placed into the vagina and the cervix was visualized. Cervix was cleansed with vinegar. Postprocedural instructions given. All if patients questions answered and she expressed understanding. Advised to call in interim with questions or concerns. Follow Up: Patient is to return in 6 months for Repeat Pap. Cervix visibility: fully visualized Ferric subsulfate solution applied: no Tampon inserted: no Post-procedure: Patient tolerance of procedure: Patient tolerated the procedure well with no immediate complications Instructions and paperwork completed: yes Educational handouts given: no [facility] HCG ( test) Ql (U)o n 07-24-2024 Interpretation and review of laboratory results Normal [facility] Preg Test, Ur Negative Negative [facility] ALL CBC WITH AUTO DIFFon BASOPHILS ABSOLUTE AUTO 0 N [facility] Basophils/100 WBC (Bld) 0.3 % 0.2 - 2.0 % [facility] Eosinophils/100 WBC (Bld) 3 % 0.9 - 7.0 % [facility] Erythrocyte distribution width (RBC) [Ratio] 11.9 % 11.0 - 15.0 % [facility] Hematocrit (Bld) [Volume fraction] 43.6 % 36.0 - 48.0 % [facility] Hemoglobin (Bld) [Mass/Vol] 14.6 g/dL 12.0 - 16.0 g/dL [facility] IMMATURE GRANULOCYTES ABS AUTO 0.04 High [facility] Immature granulocytes/100 WBC (Bld) 0.6 % High 0.0 - 0.5 % [facility] Interpretation and review of laboratory results Abnormal [facility] LYMPHOCYTES ABSOLUTE AUTO 1.7 [facility] Lymphocytes/100 WBC (Bld) 25.6 % 20.5 - 60.0 % [facility] MCH (RBC) [Entitic mass] 28.9 pg 26.7 - 34.0 pg [facility] MCHC (RBC) [Mass/Vol] 33.5 g/dL 29.9 - 35.2 g/dL [facility] MCV (RBC) [Entitic vol] 86.2 fL 81.0 - 99.0 fL [facility] MONOCYTES ABSOLUTE AUTO 0.4 N [facility] Monocytes/100 WBC (Bld) 6.1 % 1.7 - 12.0 % [facility] NEUTROPHILS ABSOLUTE AUTO 4.3 [facility] Neutrophils/100 WBC (Bld) 64.4 % 43.0 - 75.0 % [facility] Platelet mean volume (Bld) [Entitic vol] 10.2 fL 9.5 - 13.5 fL [facility]H EO # 0.2 [facility] PLT 284 [facility] RBC 5.06 [facility] WBC 6.7 [facility] Urinalysis macro (dipstick) panel (U)on 07-03-2024 Bilirubin, UA Negative Negative - 4(70) +++ mg/dL [facility] Blood, UA Positive Negative - 50 Sonny/mcL [facility] Comment on above: trace-intact Clarity, UA Clear [facility] Color, UA Yellow [facility] Glucose, UA Negative Negative - 2000(110) ++++ mg/dL [facility] Interpretation and review of laboratory results Abnormal [facility] Ketones, UA Negative Negative - 160(16) ++++ mg/dL [facility] Leukocytes, UA Positive Negative - 500+++ Venecia/mcL [facility] Comment on above: small Nitrite, UA Negative Negative - Positive [facility] pH, UA 5.5 5 - 9 [facility] Protein, UA Positive Negative - 2000(20) ++++ mg/dL [facility] Comment on above: 30 Spec Grav, UA 1.03 1 - 1.03 [facility] Urobilinogen, UA 0.2 0.2 - 12 mg/dL [facility] - Microbiology an d Antimicrobial susceptibilityon 12-01-2023 SARS-CoV-2 (COVID-19) RNA TELLO+probe Ql (Unsp spec) - [facility] No Panel Informationon 11-30 FLU A - [facility] FLU B - [facility] Interpretation and review of laboratory results Normal [facility] Basic Metabolic Tracy w/Rfx A1 Con 09-09-2023 GFR/1.73 sq M.predicted MDRD (S/P/Bld) [Vol rate/Area] mL/min/{1.73_m2} Normal [facility] Comment on above: Performed By: #### E MP BMP, EBS A1C, EBS LIPID #### [facility] [address] [id number] [place] Calcium [Mass/volume] in Ser um or PlasmaOrdered By: Cecilia Sutton on 09-09-2023 Calcium [Mass/Vol] 9.7 mg/dL Normal 8.6-10.3 [facility] Comment on above: Performed By: #### E MP BMP, EBS A1C, EBS LIPID #### [facility] [address] [id number] [place] Carbon dioxide, total [Moles /volume] in Serum or PlasmaOrdered By: Cecilia Sutton on 09-09-2023 CO2 [Moles/Vol] 22.0 mmol/L Normal 21.0-31.0 [facility] Comment on above: Performed By: #### E MP BMP, EBS A1C, EBS LIPID #### [facility] [address] [id number] [place] Chloride [Moles/volume] in S jessie or PlasmaOrdered By: Cecilia Sutton on 09-09-2023 Chloride [Moles/Vol] 105 mmol/L Normal 98-107 [facility] Comment on above: Performed By: #### E MP BMP, EBS A1C, EBS LIPID #### [facility] [address] Cholesterol [Mass/volume] in Serum or PlasmaOrdered By: Cecilia Sutton on 09-09-2023 Cholesterol [Mass/Vol] 227 mg/dL High 140-200 [facility] Comment on above: Chol less than 200 m g/dl low riskChol 201-239 mg/dl borderline riskChol 240 mg/dl and greater high risk Result Comment: Chol less than 200 mg/dl low risk Chol 201-239 mg/dl borderline risk Chol 240 mg/dl and greater high risk Performed By: #### E MENDEZ BMP, EBS A1C, EBS LIPID #### [facility] [address] Cholesterol in LDL Calc [Mas s/Vol]Ordered By: Cecilia Sutton on 09-09-2023 Cholesterol in LDL [Mass/Vol] 139 mg/dL High 0-100 [facility] Comment on above: LDL ATP III CLASSIFI CATIONLDL less than 100 mg/dL OptimalLDL 100-129 mg/dL Near or above optimalLDL 130-159 mg/dL Borderline highLDL 160-189 mg/dL HighLDL greater than 189 mg/dL Very high Cholesterol in VLDL Calc [Ma ss/Vol]Ordered By: Cecilia Sutton on 09-09-2023 Cholesterol in VLDL [Mass/Vol] 53 mg/dL [facility] Creatinine [Mass/volume] in Serum or PlasmaOrdered By: Cecilia Sutton on 09-09-2023 Creatinine [Mass/Vol] 0.46 mg/dL Low 0.60-1.20 [facility] Comment on above: Performed By: #### E MENDEZ BMP, EBS A1C, EBS LIPID #### [facility] [address] EBS A1C with Estimated Ave Zach tovarn 09-09-2023 Glucose [Mass/Vol] 134 mg/dL Normal [facility] Comment on above: Result Comment: PERF ORMED BY: [facility] [address] [place] [address] PATHOLOGIST QUARTZ MOUNTER JU BAR M.D. Performed By: #### E MP BMP, EBS A1C, EBS LIPID #### [facility] [address] HbA1c (Bld) [Mass fraction] 6.3 % High 4.3-5.6 [facility] Comment on above: Result Comment: Incr eased risk for diabetes: 5.7 - 6.4 diabetes: >6.4 glycemic control for adults with diabetes: <7.0 Performed By: #### E MP BMP, EBS A1C, EBS LIPID #### [place] [address] [place] Glucose [Mass/volume] in Ser um or PlasmaOrdered By: Cecilia Sutton on 09-09-2023 Glucose [Mass/Vol] 104 mg/dL High 70-100 [facility] Comment on above: ADA recommended refe rence range Result Comment: ADA recommended reference range Performed By: #### E MP BMP, EBS A1C, EBS LIPID #### [address] Lipid Profileon 09-09-2023 LDL Cholesterol,Calculated 139 mg/dL High 0-100 [facility] Comment on above: Result Comment: LDL ATP III CLASSIFICATION LDL less than 100 mg/dL Optimal LDL 100-129 mg/dL Near or above optimal LDL 130-159 mg/dL Borderline high LDL 160-189 mg/dL High LDL greater than 189 mg/dL Very high Performed By: #### E MP BMP, EBS A1C, EBS LIPID #### [place] [address] [place] Triglyceride w/Reflex 266 mg/dL High 0-149 [facility] Comment on above: Result Comment: TRIG ATP III CLASSIFICATION TRIG less than 150 mg/dL Normal TRIG 150-199 mg/dL Borderline high TRIG 200-500 mg/dL High TRIG greater than 500 mg/dL Very high Standard traceable to the Center for Disease Conrtrol and Prevention (CDC) test method. Performed By: #### E MP BMP, EBS A1C, EBS LIPID #### [facility] [address] VLDL CHOLESTEROL 53 mg/dL Normal [facility] Comment on above: Performed By: #### E MP BMP, EBS A1C, EBS LIPID #### [facility] [address] No Panel InformationOrdered By: Cecilia Sutton on 09-09-2023 Estimated GFR (CKD-EPI) > 60.0 mL/Min [facility] Creatinine Clearance (Chem N/A [facility] Potassium [Moles/volume] in Serum or PlasmaOrdered By: Cecilia Sutton on 09-09-2023 Potassium [Moles/Vol] 4.4 mmol/L Normal 3.5-5.1 [facility] Comment on above: Hemolysis is present at a level that could interfere with the result.Contact lab if redraw is required Result Comment: Hemo lysis is present at a level that could interfere with the result. Contact lab if redraw is required Performed By: #### E MP BMP, EBS A1C, EBS LIPID #### [facility] [address] [place] [address] Serum or plasma anion gap de terminationOrdered By: Cecilia Sutton on 09-09-2023 Anion gap [Moles/Vol] 12.4 mmol/L Normal 6.0-15.0 [facility] Comment on above: Performed By: #### E MP BMP, EBS A1C, EBS LIPID #### [facility] [address] [place] [address] Serum or plasma high density lipoprotein (HDL) cholesterol measurementOrdered By: Cecilia Sutton on 09-09-2023 Cholesterol in HDL [Mass/Vol] 35 mg/dL Normal 23-92 [facility] Comment on above: HDL CHOL ATP-III CLA SSIFICATION Cardiovascular RiskHDL > or equal to 60 mg/dL LOWHDL < 40 mg/dL HIGH Result Comment: HDL CHOL ATP-III CLASSIFICATION Cardiovascular Risk HDL > or equal to 60 mg/dL LOW HDL < 40 mg/dL HIGH Performed By: #### E MP BMP, EBS A1C, EBS LIPID #### [facility] [address] [place] [address] Serum or plasma total choles terol/high density lipoprotein (HDL) cholesterol mass ratOrdered By: Cecilia Sutton on 09-09-2023 Cholesterol.total/Rebecca sterol in HDL [Mass ratio] 6.5 {ratio} Normal <5.0 [facility] Comment on above: Result Comment: PERF ORMED BY: [place] [address] PATHOLOGIST QUARTZ MOUNTER JU BAR M.D. Performed By: #### E MP BMP, EBS A1C, EBS LIPID #### [facility] [address] [place] [address] [place] Sodium [Moles/volume] in Ser um or PlasmaOrdered By: Cecilia Sutton on 09-09-2023 Sodium [Moles/Vol] 135 mmol/L Low 136-145 [facility] Comment on above: Performed By: #### E MP BMP, EBS A1C, EBS LIPID #### [facility] [address] [place] [address] [place] Triglyceride [Mass/volume] i n Serum or PlasmaOrdered By: Cecilia Sutton on 09-09-2023 Triglyceride [Mass/Vol] 266 mg/dL High 0-149 F [facility] Comment on above: TRIG ATP III CLASSIF ICATIONTRIG less than 150 mg/dL NormalTRIG 150-199 mg/dL Borderline highTRIG 200-500 mg/dL High TRIG greater than 500 mg/dL Very highStandard traceable to the Center for Disease Conrtrol and Prevention (CDC) test method. Urea nitrogen [Mass/volume] in Serum or PlasmaOrdered By: Cecilia Sutton on 09-09-2023 Urea nitrogen [Mass/Vol] 17 mg/dL Normal 7-25 [facility] Comment on above: Performed By: #### E MP BMP, EBS A1C, EBS LIPID #### [facility] [address] [id number] [place] ALT No additional P-5'-P [Ca talytic activity/Vol]on 08-12-2023 ALT [Catalytic activity/Vol] 17 U/L Normal 0-[address] [facility] Comment on above: Performed By: #### 1 744-2, 5193-8, 20025-0, 76752-9 #### [facility] ([id number]) [address] [place] [address] HBV surface Ab IA Qnon 08-11 Anti HBs quant. 274.99 mIU/mL Normal [facility] Comment on above: Result Comment: Vacc inated: >=12mIU/mL, Positive (Immune) Unvaccinated: <8mIU/mL, Negative (Not Immune) 8-11.99 mIU/mL: Indeterminate, (Considered Not Immune) Performed By: #### 1 744-2, 5193-8, 18625-2, 70995-2 #### [facility] ([id number]) [address] [place] [address], [address] [address] HCV Ab IA Qlon 08-12-2023 ANTI HCV W/PCR REFLX Non-Reactive Normal NRCT [facility] Comment on above: Result Comment: If recent infection suspected, recommend repeat testing (>2 months). [place]-vi-qcacxc ratio is <0.80. Performed By: #### 1 744-2, 5193-8, 43685-9, 28228-2 #### [facility] ([id number]) [address] [place] [address], [address] [address] HIV 1+2 Ab+HIV1 p24 Ag IA Ql on 08-12-2023 HIV 1 and 2 Ab/Ag Screen Non-Reactive Normal NRCT [facility] Comment on above: Result Comment: This information [...] diagnoses. Performed By: #### 1 744-2, 5193-8, 75607-6, 67867-7 #### [facility] ([id number]) [address] [place] [address] Cytology Cervical or vaginal smear or scraping studyOrdered By: Rosa Elena Lee on 04-29-2022 [facility] VZ Immunityon 04-07-2022 VZ Immunity 2.16 Normal >1.09 [facility] Comment on above: Result Comment: Interpretation: IMMUNE Reference Range: <0.91 Not Immune 0.91-1.09 Equivocal >1.09 Immune Performed By: #### V ZI #### [facility] [address] [place] [address] Director Physical: Matias Jones MD COVID/FLU RT-PCRon SARS-CoV-2 (COVID-19) RNA TELLO+probe Ql (Unsp spec) Negative [facility] Other COVID/FLU RT-PCR Negative [employer] Other Quick Strepon 01-27-2022 S. pyogenes Org specific cx Ql (Throat) Positive [facility] [employer] [facility] Other Quick Strep [facility] Other Urinalysis - AUTOMATEDon Appearance (U) clear [employer] Other Bilirubin Ql (U) Negative [facility] [employer] Other Color (U) yellow [facility] Other Glucose Ql (U) Negative [facility] Other Hemoglobin Ql (U) trace [employer] Other Ketones Ql (U) Negative [facility] Other Leukocyte esterase Test strip Ql (U) small [facility] Other Nitrite Ql (U) Negative [employer] Other pH (U) 7.5 [pH] [facility] Other Protein Ql (U) Negative [facility] Other Specific gravity (U) [Rel density] 1.025 [facility] Other Urobilinogen (U) [Mass/Vol] 0.2 mg/dL [facility] Other Urinalysis - AUTOMATED No [facility] Other US PREG CERVICAL LENGTHon US PREG CERVICAL LENGTH PROCEDURE: US AL EG ANATOMY SINGLE, US PREG CERVICAL LENGTH, [...] by: APOLONIA BARNETT Date: 2019-06-01 16:[address] [facility] PAP ACOG PANEL 3: 21 to 29on 05-01-2019 Age Gdln ACOG Testing Normal [facility] Comment on above: Performed By: #### U ACSIND, UMICRO #### [facility] [address] [address] Kellen Moyer Chlamydia, Nuc. Acid Amp Negative Normal Negative [facility] Comment on above: Result Comment: Perf ormed at: =G Performed By: #### U ACSIND, UMICRO #### [facility] [address] [id number] Kellen Moyer DIAGNOSIS: Comment Abnormal The [facility] Comment on above: Result Comment: EPIT HELIAL CELL ABNORMALITY. ATYPICAL SQUAMOUS CELLS OF UNDETERMINED SIGNIFICANCE (ASC-US). Performed at: WB Performed By: #### U ACSIND, UMICRO #### [facility] [address] [address] Kellen Moyer Electronically signed by: Comment Normal [facility] [facility] Comment on above: Result Comment: Barron Liu MD, Pathologist Performed at: WB Performed By: #### U ACSIND, UMICRO #### [facility] [address] [address] Kellen Moyer Gonococcus, Nuc. Acid Amp Negative Normal Negative [facility] Comment on above: Result Comment: Perf ormed at: =G Performed By: #### U ACSIND, UMICRO #### [facility] [address] [address] Kellen Comfort HPV Aptima Negative Normal Negative [facility] Comment on above: Result Comment: This nucleic acid amplification test detects fourteen high-risk HPV types (16,18,31,33,35,39,45,51,52,56,58,59,66,68) without differentiation. Performed By: #### U ACSSARIKA UMICRO #### [facility] [address] [place] [address] Kellen Moyer Methodology: Comment Normal [facility] Comment on above: Result Comment: This liquid based ThinPrep(R) pap test was screened with the use of an image guided system. Performed at: WB Performed By: #### U WILLIAM UMICRO #### [facility] [address] [place] [address] Kellen Moyer Note: Comment Normal [facility] Comment on above: Result Comment: The [...] Performed By: #### U WILLIAM UMICRO #### [facility] [address] [place] [address] Kellen Moyer Pathologist Provided ICD10 Comment Normal [facility] Comment on above: Result Comment: R87. [id number] Performed at: WB Performed By: #### U WILLIAM UMICRO #### [facility] [address] [place] [address] Kellen Moyer Performed by: Comment Normal [facility] Comment on above: Result Comment: Nieves Cameron, Manager Management (ASCP) Performed at: WB Performed By: #### U WILLIAM, UMICRO #### [facility] [address] [place] [address] Kellen Moyer Reflex Criteria: Comment Normal [facility] Comment on above: Result Comment: See below for HPV testing results. . Performed at: WB Performed By: #### U WILLIAM, UMICRO #### [facility] [address] [place] [address] Kellen Moyer Specimen adequacy: Comment Normal [facility] Comment on above: Result Comment: Sati sfactory for evaluation. Endocervical and/or squamous metaplastic cells (endocervical component) are present. Areas of partially obscuring inflammatory exudate are present. Performed at: WB Performed By: #### U ALONA THOMASRO #### [facility] [address] [place] [address] Kellen Moyer . . Normal [facility] Comment on above: Result Comment: Perf ormed at: WB Performed By: #### U WILLIAM UMICRO #### [facility] [address] [address] Kellenrachel Chanden VAGINITIS/VAGINOSIS DNA PROB [place] 04-27-2019 Kelsey species Negative Normal Negative [facility] Comment on above: Performed By: #### U WILLIAM UMICRO #### [facility] [address] [place] [address] Kellenrachel Chanden Gardnerella vaginalis Positive Abnormal Negative [facility] Comment on above: Performed By: #### U WILLIAM UMICRO #### [facility] [address] [place] [address] Kellen Chanden Trichomonas vaginalis Negative Normal Negative [facility] Comment on above: Performed By: #### U WILLIAM UMICRO #### [facility] [address] [place] [address] Kellen Moyer CULTURE URINEon 03-21-2019 CULTURE URINE Culture Observations : Moderate growth of mixed genital juan.No potential pathogens seen. Normal The [facility] Comment on above: Performed By: #### U WILLIAM UMICRO #### [facility] [address] [address] Kellenrachel Moyer ER URINE PROFILEon 0 Bilirubin [Mass/Vol] Negative Normal NEGATIVE [facility] Comment on above: Performed By: #### U WILLIAM UMICRO #### [facility] [address] [place] [address] Kellen Comfort BLOOD Negative Normal NEGATIVE [facility] Comment on above: Performed By: #### U ALONA THOMASRO #### [facility] [address] [address] Kellen Comfort Clarity (U) CLEAR Normal [facility] Comment on above: Performed By: #### U ALONA THOMASRO #### [facility] [address] [place] [address] Kellen Comfort Color (U) LT. YELLOW Normal YELLOW [facility] Comment on above: Performed By: #### U ACSALONA BAUMRO #### [facility] [address] [place] [address] Kellen Comfort ERUAHD A micrscopic examination will be performed if indicated. Normal The [facility] Comment on above: Performed By: #### U ALONA THOMASRO #### [facility] [address] [place] [address] Kellen Comfort Glucose [Mass/Vol] Negative Normal NEGATIVE [facility] Comment on above: Performed By: #### U ACSALONA BAUMRO #### [facility] [address] [place] [address] Kellen Comfort Ketones Ql (U) TRACE Normal NEGATIVE [facility] Comment on above: Performed By: #### U ALONA THOMASRO #### [facility] [address] [place] [address] Kellen Comfort Nitrite Ql (U) Negative Normal NEGATIVE [facility] Comment on above: Performed By: #### U ALONA THOMASRO #### [facility] [address] [place] [address] Kellen Comfort pH (Bld) 6.0 Normal 5-9 [facility] Comment on above: Performed By: #### U ACSRENE BAUMICRO #### [facility] [address] [place] [address] Kellen Comfort Protein (U) [Mass/Vol] Negative Normal Th [facility] Comment on above: Performed By: #### U ACSRENE BAUMICRO #### [facility] [address] [place] [address] Kellen Comfort SPEC GRAVITY >=1.030 Normal 1.005-<=1.[address] [facility] Comment on above: Performed By: #### U WILLIAM UMICRO #### [facility] [address] [address] Kellen Comfort UR MICRO IND INDICATED Normal [facility] Comment on above: Performed By: #### U WILLIAM UMICRO #### [facility] [address] [address] Kellen Comfort Urobilinogen Qn (U) 0.2 EU/dl Normal [facility] Comment on above: Performed By: #### U ACSSARIKA UMICRO #### [facility] [address] [address] Kellen Comfort WBC (Bld) [#/Vol] SMALL Normal NEGATIVE [facility] Comment on above: Performed By: #### U WILLIAM UMICRO #### [facility] [address] [address] Kellen Comfort URINE MICROSCOPIC ONLYon AMORPHOUS CRYSTALS FEW Normal [facility] Comment on above: Performed By: #### U WILLIAM UMICRO #### [facility] [address] [address] Kellen Comfotr Bacteria LM.HPF (Urine sed) [#/Area] MODERATE Normal NONE SEEN [facility] Comment on above: Performed By: #### U WILLIAM UMICRO #### [facility] [address] [address] Kellen Comofrt CAST NONE SEEN Normal NONE SEEN The [facility] Comment on above: Performed By: #### U ACSSARIKA UMICRO #### [facility] [address] [address] Kellen Comfort Crystals LM Nom (Urine sed) SEEN Normal NONE SEEN [facility] Comment on above: Performed By: #### U WILLIAM UMICRO #### [facility] [address] [address] Kellen Comfort CULTURE INDICATED Normal [facility] Comment on above: Performed By: #### U ACSSARIKA UMICRO #### [facility] [address] [address] Kellen Comfort Epithelial cells LM.HPF (Urine sed) [#/Area] MODERATE Normal [facility] Comment on above: Performed By: #### U CHLOE THOMAS #### [facility] [address] [address] Kellen Comfort MUCOUS TRACE Normal NONE SEEN The [facility] Comment on above: Performed By: #### U CHLOE THOMAS #### [facility] [address] [address] Kellen Comfort RBC (U) [#/Vol] 5-10 Normal 0-2 [facility] Comment on above: Performed By: #### U CHLOE THOMAS #### [facility] [address] [place] [address] Kellen Comfort WBC (Bld) [#/Vol] 50-75 Normal NONE SEEN [facility] Comment on above: Performed By: #### U CHLOE THOMAS #### [facility] [address] [address] Kellen Comfort CULTURE THROATon 03-20-2019 CULTURE THROAT Culture Observations : Normal respiratory juan Normal [facility] Comment on above: Performed By: #### U CHLOE THOMAS #### [facility] [address] [place] [address] Kellen Comfort INFLUENZA A AND B AGon 03-20 INFLUBNEGH SEE BELOW Normal [facility] Comment on above: Result Comment: Nega tive for Flu B protein antigen. Infection due to Flu B cannot be ruled out. Flu B antigen in the sample may be below the detection limit of the test. Performed By: #### U ACSCHLOE BAUM #### [facility] [address] [place] [address] Kellen Comfort INFLUENZA A AG Positive Normal NEGATIVE SEE COMMENT [facility] Comment on above: Performed By: #### U CHLOE THOMAS #### [facility] [address] [address] Kellen Comfort INFLUENZA B AG Negative Normal NEGATIVE SEE COMMENT The [facility] Comment on above: Performed By: #### U CHLOE THOMAS #### [facility] [address] [address] Kellen Moyer INFLUPOSH SEE BELOW Normal [facility] Comment on above: Result Comment: NOTE : Live attenuated influenzae vaccine viruses can cause a positive result for a rapid influenza diagnostic test if administered up to 7 days prior to rapid testing. Performed By: #### U ACSIND, UMICRO #### [facility] [address] [address] Kellen Moyer INTERNAL CONTROLS Within Normal Limits Normal Wi thin Normal Limits [facility] Comment on above: Performed By: #### U ACSIND, UMICRO #### [facility] [address] [id number] Kellen Moyer STREPT SCREENon 03-20-2019 STREP SCREEN A Negative Normal NEGATIVE [facility] Comment on above: Performed By: #### U ACSIND, UMICRO #### [facility] [address] [id number] Kellen Moyer US PREG <14 WKSon 03-13-2019 US PREG <14 WKS Patient: ANN-MARIE LÓPEZ Exam Date: 03/13/2019 : 1990 Gender:F Ordering : DR. JAIDEN TOTH . Admission #: [id number] Family : Order #: [id number] CLICK HERE TO VIEW EXAM RADIOLOGY REPORT [...] M.D. on 03/13/2019 at 10:13 Normal [facility] CBC AUTO DIFFon 10-19-2018 Basophils (Bld) [#/Vol] 0.0 103/ul Normal 0.0-0.1 [facility] Comment on above: Performed By: #### CHLOE BOTELLO #### [facility] [address] [place] [address] Kellen Comfort Basophils/100 WBC (Bld) 0.3 % Normal 0.2-2.0 [facility] Comment on above: Performed By: #### CHLOE BOTELLO #### [facility] [address] [place] [address] Kellen Comfort Eosinophils (Bld) [#/Vol] 0.1 103/ul Normal 0.0-0.7 [facility] Comment on above: Performed By: #### CHLOE BOTELLO #### [facility] [address] [place] [address] Kellen Comfort Eosinophils/100 WBC (Bld) 1.1 % Normal 0.9-7.0 [facility] Comment on above: Performed By: #### CHLOE BOTELLO #### [facility] [address] [place] [address] Kellen Comfort Erythrocyte distribution width (RBC) [Ratio] 11.9 % Normal 11.0-15.0 [facility] Comment on above: Performed By: #### CHLOE BOTELLO #### [facility] [address] [place] [address] Kellen Comfort Hematocrit (Bld) [Volume fraction] 32.4 % Critically low 36.0-48.0 [facility] Comment on above: Performed By: #### CHLOE BOTELLO #### [facility] [address] [place] [address] Kellen Comfort Hemoglobin (Bld) [Mass/Vol] 10.8 g/dL Critically low 12.0-16.0 [facility] Comment on above: Performed By: #### CHLOE BOTELLO #### [facility] [address] [id number] Kellen Comfort IG # 0.03 10e3/ul Normal 0.00-0.03 [facility] Comment on above: Performed By: #### U ALONA THOMASRO #### [facility] [address] [id number] Kellen Comfort IG % 0.3 % Normal 0.0-0.5 [facility] Comment on above: Performed By: #### U ALONA THOMASRO #### [facility] [address] [place] [address] Kellen Comfort Lymphocytes (Bld) [#/Vol] 1.6 103/ul Normal 1.2-3.8 [facility] Comment on above: Performed By: #### ALONA BOTELLORO #### [facility] [address] [place] [address] Kellen Comfort Lymphocytes/100 WBC (Bld) 18.3 % Critically low 20.5-60.0 [facility] Comment on above: Performed By: #### RENE BOTELLOICRO #### [facility] [address] [place], [place] [id number] Kellen Comfort MANUAL DIFF REQ NO Normal [facility] Comment on above: Performed By: #### RENE BOTELLOICRO #### [facility] [address] [place], [place] [id number] Kellen Comfort MCH (RBC) [Entitic mass] 29.5 pg Normal 26.7-34.0 [facility] Comment on above: Performed By: #### U RENE THOMASICRO #### [facility] [address] [place], [place] [id number] Kellen Comfort MCHC (RBC) [Mass/Vol] 33.3 g/dL Normal 29.9-35.2 [facility] Comment on above: Performed By: #### Viky THOMAS UMICRO #### [facility] [address] [place], [place] [id number] Kellen Comfort MCV (RBC) [Entitic vol] 88.5 fL Normal 81.0-99.0 [facility] Comment on above: Performed By: #### CHLOE BOTELLO #### [facility] [address] [place] [address] Kellen Comfort Monocytes (Bld) [#/Vol] 0.7 103/ul Normal 0.3-0.8 [facility] Comment on above: Performed By: #### CHLOE BOTELLO #### [facility] [address] [place] [address] Kellen Comfort Monocytes/100 WBC (Bld) 8.0 % Normal 1.7-12.0 [facility] Comment on above: Performed By: #### CHLOE BOTELLO #### [facility] [address] [place] [address] Kellen Comfort Neutrophils (Bld) [#/Vol] 6.4 103/ul Normal 1.4-6.5 [facility] Comment on above: Performed By: #### CHLOE BOTELLO #### [facility] [address] [place] [address] Kellen Comfort Neutrophils/100 WBC (Bld) 72.0 % Normal 43.0-75.0 [facility] Comment on above: Performed By: #### CHLOE BOTELLO #### [facility] [address] [place] [address] Kellen Comfort Platelet mean volume (Bld) [Entitic vol] 12.3 fL Normal 9.5-13.5 [facility] Comment on above: Performed By: #### CHLOE BOTELLO #### [facility] [address] [place] [address] Kellen Comfort Platelets (Bld) [#/Vol] 154 103/ul Normal 150-450 [facility] Comment on above: Performed By: #### CHLOE BOTELLO #### [facility] [address] [place] [address] Kellen Comfort RBC (Bld) [#/Vol] 3.66 106/ul Critically low 4.20-5.40 [facility] Comment on above: Performed By: #### U CHLOE THOMAS #### [facility] [address] [place], [place] [id number] Kellen Comfort WBC (Bld) [#/Vol] 8.9 103/ul Normal 4.0-11.0 [facility] Comment on above: Performed By: #### U CHLOE THOMAS #### [facility] [address] [place], [place] [id number] Kellen Comfort CBC AUTO DIFFon 10-18-2018 Basophils (Bld) [#/Vol] 0.0 103/ul Normal 0.0-0.1 [facility] Comment on above: Performed By: #### C BC #### [facility] [address] [place] [address] Kellen Comfort Basophils/100 WBC (Bld) 0.4 % Normal 0.2-2.0 [facility] Comment on above: Performed By: #### C BC #### [facility] [address] [place] [address] Kellen Comfort Eosinophils (Bld) [#/Vol] 0.1 103/ul Normal 0.0-0.7 [facility] Comment on above: Performed By: #### C BC #### [facility] [address] [place], [place] [id number] Kellen Comfort Eosinophils/100 WBC (Bld) 0.7 % Critically low 0.9-7.0 [facility] Comment on above: Performed By: #### C BC #### [facility] [address] [place], [place] [id number] Kellen Comfort Erythrocyte distribution width (RBC) [Ratio] 11.8 % Normal 11.0-15.0 [facility] Comment on above: Performed By: #### C BC #### [facility] [address] [place], [place] [id number] Kellen Comfort Hematocrit (Bld) [Volume fraction] 34.9 % Critically low 36.0-48.0 [facility] Comment on above: Performed By: #### C BC #### [facility] [address] [place], [place] [id number] Kellen Comfort Hemoglobin (Bld) [Mass/Vol] 11.7 g/dL Critically low 12.0-16.0 [facility] Comment on above: Performed By: #### C BC #### [facility] [address] [place] [address] Kellenrachel Moyer IG # 0.01 10e3/ul Normal 0.00-0.03 [facility] Comment on above: Performed By: #### C BC #### [facility] [address] [place] [address] Kellen Comfort IG % 0.1 % Normal 0.0-0.5 [facility] Comment on above: Performed By: #### C BC #### [facility] [address] [place] [address] Kellen Comfort Lymphocytes (Bld) [#/Vol] 1.2 103/ul Normal 1.2-3.8 [facility] Comment on above: Performed By: #### C BC #### [facility] [address] [place] [address] Kellenrachel Moyer Lymphocytes/100 WBC (Bld) 16.5 % Critically low 20.5-60.0 [facility] Comment on above: Performed By: #### C BC #### [facility] [address] [place], [place] [id number] Kellen Moyer MANUAL DIFF REQ NO Normal [facility] Comment on above: Performed By: #### C BC #### [facility] [address] [place] [address] Kellenrachel Moyer MCH (RBC) [Entitic mass] 29.2 pg Normal 26.7-34.0 [facility] Comment on above: Performed By: #### C BC #### [facility] [address] [place], [place] [id number] Kellenrachel Moyer MCHC (RBC) [Mass/Vol] 33.5 g/dL Normal 29.9-35.2 [facility] Comment on above: Performed By: #### C BC #### [facility] [address] [place] [address] Kellen Comfort MCV (RBC) [Entitic vol] 87.0 fL Normal 81.0-99.0 [facility] Comment on above: Performed By: #### C BC #### [facility] [address] [place], [place] [id number] Kellen Comfort Monocytes (Bld) [#/Vol] 0.6 103/ul Normal 0.3-0.8 [facility] Comment on above: Performed By: #### C BC #### [facility] [address] [place], [place] [id number] Kellen Comfort Monocytes/100 WBC (Bld) 8.3 % Normal 1.7-12.0 [facility] Comment on above: Performed By: #### C BC #### [facility] [address] [place], [place] [id number] Kellen Comfort Neutrophils (Bld) [#/Vol] 5.3 103/ul Normal 1.4-6.5 [facility] Comment on above: Performed By: #### C BC #### [facility] [address] [place], [place] [id number] Kellen Comfort Neutrophils/100 WBC (Bld) 74.0 % Normal 43.0-75.0 [facility] Comment on above: Performed By: #### C BC #### [facility] [address] [place], [place] [id number] Kellen Comfort Platelet mean volume (Bld) [Entitic vol] 12.4 fL Normal 9.5-13.5 [facility] Comment on above: Performed By: #### C BC #### [facility] [address] [place], [place] [id number] Kellen Comfort Platelets (Bld) [#/Vol] 167 103/ul Normal 150-450 [facility] Comment on above: Performed By: #### C BC #### [facility] [address] [place], [place] [id number] Kellen Comfort RBC (Bld) [#/Vol] 4.01 106/ul Critically low 4.20-5.40 [facility] Comment on above: Performed By: #### C BC #### [facility] [address] [place], [place] [id number] Kellen Comfort WBC (Bld) [#/Vol] 7.1 103/ul Normal 4.0-11.0 [facility] Comment on above: Performed By: #### C BC #### [facility] [address] [place] [address] Kellen Moyer CULTURE URINEon 10-18-2018 CULTURE URINE Culture Observations : NORMAL GENITAL JUAN. NO POTENTIAL PATHOGENS SEEN. Normal [facility] Comment on above: Performed By: #### U ACSALONA BAUMRO #### [facility] [address] [place] [address] Kellen Moyer DRUG SCREEN RAPID (URINE)on 10-18-2018 AMP Negative Normal NEGATIVE [facility] Comment on above: Performed By: #### D RUGRPD #### [facility] [address] [place] [address] Kellen Moyer BAR Negative Normal NEGATIVE [facility] Comment on above: Performed By: #### D RUGRPD #### [facility] [address] [place] [address] Kellenrachel Moyer BUP Negative Normal NEGATIVE [facility] Comment on above: Performed By: #### D RUGRPD #### [facility] [address] [place] [address] Kellen Moyer BZO Negative Normal NEGATIVE [facility] Comment on above: Performed By: #### D RUGRPD #### [facility] [address] [place] [address] Kellen Moyer DIANA Negative Normal NEGATIVE [facility] Comment on above: Performed By: #### D RUGRPD #### [facility] [address] [place] [address] Kellen Moyer CUT-OFFS SEE BELOW Normal [facility] Comment on above: Result Comment: AMP [...] ng/mL Performed By: #### D RUGRPD #### [facility] [address] [place] [address] Kellen Comfort DRUG CUT HEADER DRUG CLASS TEST SYSTEM CUT-OFF CONCENTRATIONS ARE FOLLOWS: Normal The [facility] Comment on above: Performed By: #### D RUGRPD #### [facility] [address] [place] [address] Kellen Comfort mAMP Negative Normal NEGATIVE The [facility] Comment on above: Performed By: #### D RUGRPD #### [facility] [address] [place] [address] Kellen Comfort MTD Negative Normal NEGATIVE The [facility] Comment on above: Performed By: #### Daniele RUGRPD #### [facility] [address] [place] [address] Kellen Comfort OPI Negative Normal NEGATIVE The [facility] Comment on above: Performed By: #### D RUGRPD #### [facility] [address] [place] [address] Kellen Comfort OXY Negative Normal NEGATIVE The [facility] Comment on above: Performed By: #### D RUGRPD #### [facility] [address] [place] [address] Kellen Comfort PCP Negative Normal NEGATIVE The [facility] Comment on above: Performed By: #### D RUGRPD #### [facility] [address] [place] [address] Kellen Comfort PPX Negative Normal NEGATIVE The [facility] Comment on above: Performed By: #### D RUGRPD #### [facility] [address] [place] [address] Kellen Comfort TCA Negative Normal NEGATIVE The [facility] Comment on above: Performed By: #### D RUGRPD #### [facility] [address] [place] [address] Kellen Comfort THC Negative Normal NEGATIVE The [facility] Comment on above: Performed By: #### D RUGRPD #### [facility] [address] [address] Kellen Comfort UA (CLEAN/CATCH) GRAPE GROWER/MICRO I F IND.on 10-18-2018 Bilirubin [Mass/Vol] SMALL Normal NEGATIVE [facility] Comment on above: Performed By: #### U ACSSARIKA UMICRO #### [facility] [address] [place] [address] Kellen Comfort BLOOD LARGE Normal NEGATIVE [facility] Comment on above: Performed By: #### U ACSSARIKA UMICRO #### [facility] [address] [place] [address] Kellen Comfort Clarity (U) CLOUDY Normal [facility] Comment on above: Performed By: #### U ACSSARIKA UMICRO #### [facility] [address] [place] [address] Kellen Comfort Color (U) DK. ORANGE Normal YELLOW [facility] Comment on above: Performed By: #### U ACSSARIKA UMICRO #### [facility] [address] [place] [address] Kellen Comfort Glucose [Mass/Vol] Negative Normal NEGATIVE The [facility] Comment on above: Performed By: #### U ACSSARIKA UMICRO #### [facility] [address] [place] [address] Kellen Comfort Ketones Ql (U) Negative Normal NEGATIVE The [facility] Comment on above: Performed By: #### U ACSRENE BAUMICRO #### [facility] [address] [place] [address] Kellen Comfort Nitrite Ql (U) Negative Normal NEGATIVE The [facility] Comment on above: Performed By: #### U ACSRENE BAUMICRO #### [facility] [address] [place] [address] Kellen Comfort pH (Bld) 5.5 Normal 5-[address] [facility] Comment on above: Performed By: #### U ACSRENE BAUMICRO #### [facility] [address] [place] [address] Kellen Comfort Protein [Mass/Vol] 30 mg/dl Normal [facility] Comment on above: Performed By: #### U CHLOE THOMAS #### [facility] [address] [place] [address] Kellenrachel Moyer SPEC GRAVITY >=1.030 Normal 1.005-<=1.02 [address] [facility] Comment on above: Performed By: #### U CHLOE THOMAS #### [facility] [address] [place] [address] Kellen Moyer UR MICRO IND INDICATED Normal The [facility] Comment on above: Performed By: #### U CHLOE THOMAS #### [facility] [address] [place] [address] Kellenrachel Moyer Urobilinogen Qn (U) 0.2 EU/dl Normal [facility] Comment on above: Performed By: #### U CHLOE THOMAS #### [facility] [address] [place] [address] Kellen Comfort WBC (Bld) [#/Vol] MODERATE Normal NEGATIVE The [facility] Comment on above: Performed By: #### U CHLOE THOMAS #### [facility] [address] [place] [address] Kellen Comfort URINE MICROSCOPIC ONLYon Bacteria LM.HPF (Urine sed) [#/Area] MODERATE Normal NONE SEEN The [facility] Comment on above: Performed By: #### U CHLOE THOMAS #### [facility] [address] [place] [address] Kellen Comfort CAST NONE SEEN Normal NONE SEEN The [facility] Comment on above: Performed By: #### U CHLOE THOMAS #### [facility] [address] [place] [address] Kellen Comfort Crystals LM Nom (Urine sed) NONE SEEN Normal NONE SEEN The [facility] Comment on above: Performed By: #### U CHLOE THOMAS #### [facility] [address] [place] [address] Kellen Comfort CULTURE INDICATED Normal The [facility] Comment on above: Performed By: #### U ACSIND, UMICRO #### [facility] [address], [place] [address] Ekllen Cofmort Epithelial cells LM.HPF (Urine sed) [#/Area] MANY Normal The [facility] Comment on above: Performed By: #### U ACSIND, UMICRO #### [facility] [address], [place] [address] Kellen Comfort MUCOUS TRACE Normal NONE SEEN The [facility] Comment on above: Performed By: #### U ACSIND, UMICRO #### [facility] [address], [place] [address] Kellen Comfort RBC (U) [#/Vol] 10-20 Normal 0-2 The [facility] Comment on above: Performed By: #### U ACSIND, UMICRO #### [facility] [address], [place] [address] Kellen Comfort WBC (Bld) [#/Vol] 75-100 Normal NONE SEEN The [facility] Comment on above: Performed By: #### U ACSIND, UMICRO #### [facility] [address], [place] [address] Kellen Comfort US PREG GROWTHon 10-11-2018 US PREG GROWTH Patient: ANN-MARIE LÓPEZ Exam Date: 10/11/2018 : 1990 Gender:F Ordering : DR. JAIDEN TOTH . Admission #: [id number] Family : Order #: [id number] CLICK HERE TO VIEW EXAM RADIOLOGY REPORT [...] M.D. on 10/11/2018 at 16:24 Normal [address] [facility] CHLAMYDIA/GONOCOCCUS TELLO ( AB/URINE/PAPon 10-04-2018 Chlamydia trachomatis, TELLO Negative Normal Negative The [facility] Comment on above: Performed By: #### C T/NGNA #### [facility] [address] [place] [address] Kellen Comfort Neisseria gonorrhoeae, TELLO Negative Normal Negative The [facility] Comment on above: Performed By: #### C T/NGNA #### [facility] [address] [place] [address] Kellen Comfort GROUP B STREP CULTUREon 09-08 S. agalactiae Ag Ql (Unsp spec) Culture Observations: Negative for Group B Streptococcus Normal [facility] Comment on above: Performed By: #### G BSCX #### [facility] [address] [place] [address] Kellen Moyer US PREG PLACENTAon 9 US PREG PLACENTA Patient: ANN-MARIE LÓPEZ Exam Date: 09/02/2018 : 1990 Gender:F Ordering : DR. JAIDEN TOTH . Admission #: [id number] Family : Order #: [id number] CLICK HERE TO VIEW EXAM RADIOLOGY REPORT [...] M.D. on 10/23/2018 at 03:32 Normal [address] [facility] CULTURE URINEon 09-02-2018 CULTURE URINE Culture Observations : Moderate growth of mixed genital juan. No potential pathogens seen. Normal The [facility] Comment on above: Performed By: #### U RCX #### [facility] [address] [place] [address] Kellen Comfort UA (CLEAN/CATCH) GRAPE GROWER/MICRO I F IND.on 09-02-2018 Bilirubin [Mass/Vol] Negative Normal NEGATIVE [facility] Comment on above: Performed By: #### U WILLIAM ICRO #### [facility] [address] [place] [address] Kellen Comfort BLOOD Negative Normal NEGATIVE [facility] Comment on above: Performed By: #### U ACSSARIKA UMICRO #### [facility] [address] [place] [address] Kellen Comfort Clarity (U) CLEAR Normal [facility] Comment on above: Performed By: #### U ACSIND UMICRO #### [facility] [address] [place] [address] Kellen Comfort Color (U) LT. YELLOW Normal YELLOW [facility] Comment on above: Performed By: #### U ACSSARIKA UMICRO #### [facility] [address] [place] [address] Kellen Comfort Glucose [Mass/Vol] Negative Normal NEGATIVE The [facility] Comment on above: Performed By: #### U ACSSARIKA UMICRO #### [facility] [address] [place] [address] Kellen Comfort Ketones Ql (U) Negative Normal NEGATIVE The [facility] Comment on above: Performed By: #### U ALONA THOMASRO #### [facility] [address] [place] [address] Kellen Comfort Nitrite Ql (U) Negative Normal NEGATIVE The [facility] Comment on above: Performed By: #### U RENE THOMASICRO #### [facility] [address] [place] [address] Kellen Comfort pH (Bld) 6.0 Normal 5-9 [facility] Comment on above: Performed By: #### U ALONA THOMASRO #### [facility] [address] [place] [address] Kellen Comfort Protein [Mass/Vol] Negative Normal [facility] Comment on above: Performed By: #### U ALONA THOMASRO #### [facility] [address] [place] [address] Kellen Comfort SPEC GRAVITY >=1.030 Normal 1.005-<=1.[address] [facility] Comment on above: Performed By: #### U ALONA THOMASRO #### [facility] [address] [place] [address] Kellen Comfort UR MICRO IND INDICATED Normal [facility] Comment on above: Performed By: #### U ALONA THOMASRO #### [facility] [address] [place] [address] Kellen Comfort Urobilinogen Qn (U) 0.2 EU/dl Normal [facility] Comment on above: Performed By: #### U ALONA THOMASRO #### [facility] [address] [place], [place] [id number] Kellen Comfort WBC (Bld) [#/Vol] MODERATE Normal NEGATIVE [facility] Comment on above: Performed By: #### U RENE THOMASICRO #### [facility] [address] [place] [address] Kellen Comfort URINE MICROSCOPIC ONLYon Bacteria LM.HPF (Urine sed) [#/Area] MODERATE Normal NONE SEEN The [facility] Comment on above: Performed By: #### U ACSIND, UMICRO #### [facility] [address] [id number] Kellen Comfort CAST NONE SEEN Normal NONE SEEN The [facility] Comment on above: Performed By: #### U ACSIND, UMICRO #### [facility] [address] [id number] Kellen Comfort Crystals LM Nom (Urine sed) NONE SEEN Normal NONE SEEN The [facility] Comment on above: Performed By: #### U ACSIND, UMICRO #### [facility] [address] [address] Kellen Comfort CULTURE INDICATED Normal The [facility] Comment on above: Performed By: #### U ACSIND, UMICRO #### [facility] [address] [id number] Kellen Comfort Epithelial cells LM.HPF (Urine sed) [#/Area] FEW Normal The [facility] Comment on above: Performed By: #### U ACSIND, UMICRO #### [facility] [address] [id number] Kellen Comfort MUCOUS SMALL Normal NONE SEEN The [facility] Comment on above: Performed By: #### U ACSIND, UMICRO #### [facility] [address] [id number] Kellen Comfort RBC (U) [#/Vol] NONE SEEN Normal 0-2 The [facility] Comment on above: Performed By: #### U ACSIND, UMICRO #### [facility] [address] [id number] Kellen Comfort WBC (Bld) [#/Vol] 20-50 Normal NONE SEEN The [facility] Comment on above: Performed By: #### U ACSIND, UMICRO #### [facility] [address], [place] [address] Kellen Comfort US PREG ANATOMY SINGLEon US PREG ANATOMY SINGLE Patient: ANN-MARIE LÓPEZ Exam Date: 06/12/2018 : 1990 Gender:F Ordering : DR. JAIDEN TOTH . Admission #: [id number] Family : Order #: [id number] CLICK HERE TO VIEW EXAM RADIOLOGY REPORT [...] Horn M.D. on 06/13/2018 at 08:[address] [facility] Vital Signs Date Time Vital Sign Value Performing Clinician Facility 07-24-2024 09:56-0400 Body mass index (BMI) [Ratio] 39.01 kg/m2 Sukhjinder Trent DO Work Phone: [facility] 07-24-2024 09:56-0400 Body weight 106.32 kg Sukhjinder Trent DO Work Phone: [facility] 07-24-2024 09:56-0400 Diastolic blood pressure 86 mm[Hg] Sukhjinder Trent DO Work Phone: [facility] 07-24-2024 09:56-0400 Systolic blood pressure 126 mm[Hg] Sukhjinder Trent DO Work Phone: [facility] 07-19-2024 11:30-0400 Body mass index (BMI) [Ratio] 38.81 kg/m2 Riya Hinojosa MD Work Phone: [facility] 07-19-2024 11:30-0400 Body temperature 97.11 [degF] Riya Hinojosa MD Work Phone: [facility] 07-19-2024 11:30-0400 Body weight 105.78 kg Riya Hinojosa MD Work Phone: [facility] 07-19-2024 11:30-0400 Diastolic blood pressure 84 mm[Hg] Riya Hinojosa MD Work Phone: [facility] 07-19-2024 11:30-0400 Heart rate 88 /min Riya Hinojosa MD Work Phone: [facility] 07-19-2024 11:30-0400 SaO2% (BldA) [Mass fraction] 96 % Riya Hinojosa MD Work Phone: [facility] 07-19-2024 11:30-0400 Systolic blood pressure 120 mm[Hg] Riya Hinojosa MD Work Phone: [facility] 07-03-2024 11:47-0400 Body mass index (BMI) [Ratio] 38.63 kg/m2 Sukhjinder Trent DO Work Phone: [facility] 07-03-2024 11:47-0400 Body weight 105.29 kg Sukhjinder Trent DO Work Phone: [facility] 07-03-2024 11:47-0400 Diastolic blood pressure 80 mm[Hg] Sukhjinder Trent DO Work Phone: [facility] 07-03-2024 11:47-0400 Systolic blood pressure 120 mm[Hg] Sukhjinder Trent DO Work Phone: [facility] 06-07-2024 09:32-0400 Body mass index (BMI) [Ratio] 38.77 kg/m2 Sukhjinder Trent DO Work Phone: [facility] 06-07-2024 09:32-0400 Body weight 105.69 kg Sukhjinder Trent DO Work Phone: [facility] 06-07-2024 09:32-0400 Diastolic blood pressure 70 mm[Hg] Sukhjinder Trent DO Work Phone: [facility] 06-07-2024 09:32-0400 Systolic blood pressure 116 mm[Hg] Sukhjinder Trent DO Work Phone: [facility] 12-01-2023 12:18-0400 Body mass index (BMI) [Ratio] 37.34 kg/m2 Shefali Calvillo ASSISTANT CUSTOMER SERVICE MANAGER Work Phone: [facility] 12-01-2023 12:18-0400 Body temperature 97.3 [degF] Shefali Calvillo ASSISTANT CUSTOMER SERVICE MANAGER Work Phone: [facility] 12-01-2023 12:18-0400 Body weight 101.79 kg Shefali Calvillo ASSISTANT CUSTOMER SERVICE MANAGER Work Phone: [facility] 12-01-2023 12:18-0400 Diastolic blood pressure 82 mm[Hg] Shefali Calvillo ASSISTANT CUSTOMER SERVICE MANAGER Work Phone: [facility] 12-01-2023 12:18-0400 Heart rate 95 /min Shefali Calvillo ASSISTANT CUSTOMER SERVICE MANAGER Work Phone: [facility] 12-01-2023 12:18-0400 SaO2% (BldA) [Mass fraction] 97 % Shefali Calvillo ASSISTANT CUSTOMER SERVICE MANAGER Work Phone: [facility] 12-01-2023 12:18-0400 Systolic blood pressure 116 mm[Hg] Shefali Calvillo ASSISTANT CUSTOMER SERVICE MANAGER Work Phone: [facility] 01-27-2022 12:15-0500 Body height 167.64 cm Cecilia Zuñigamond Other [facility] Other 01-27-2022 12:15-0500 Body mass index (BMI) [Ratio] 34.54 kg/m2 Cecilia Zuñigamond Other [facility] Other 01-27-2022 12:15-0500 Body temperature 98.4 [degF] Cecilia Zuñigamond Other [facility] Other 01-27-2022 12:15-0500 Body weight 97.07 kg Cecilia Zuñigamond Other [facility] Other 01-27-2022 12:15-0500 Respiratory rate 18 /min Cecilia Zuñigamond Other [facility] Other 01-27-2022 12:15-0500 SaO2% (BldA) [Mass fraction] 97 % Cecilia Zuñigamond Other [facility] Other 04-29-2021 12:40-0400 Body height 167.64 cm Cecilia Zuñigamond Other [facility] Other 04-29-2021 12:40-0400 Body mass index (BMI) [Ratio] 35.34 kg/m2 Cecilia Perez Other [facility] Other 04-29-2021 12:40-0400 Body temperature 98 [degF] Cecilia Perez Other [facility] Other 04-29-2021 12:40-0400 Body weight 99.34 kg Cecilia Perez Other [facility] Other 04-29-2021 12:40-0400 Diastolic blood pressure 88 mm[Hg] Cecilia Perez Other [facility] Other 04-29-2021 12:40-0400 Respiratory rate 18 /min Cecilia Perez Other [facility] Other 04-29-2021 12:40-0400 SaO2% (BldA) [Mass fraction] 98 % Cecilia Perez Other [facility] Other 04-29-2021 12:40-0400 Systolic blood pressure 129 mm[Hg] Cecilia Perez Other [facility] Other Encounters Encounter Date Encounter Type Care Provider Facility Start: 07-24-2024 End: 07-24-2024 ambulatory Sukhjinder Trent Facility:[facility] Start: 07-24-2024 End: 07-24-2024 Patient encounter procedure Sukhjinder Newman DO Work Phone: [facility] Comment on above: LGSIL on Pap smear o f cervix; High risk human papillomavirus (HPV) DNA test positive Start: 07-24-2024 End: 07-24-2024 ambulatory SUKHJINDER TRENT Not Available Start: 07-19-2024 End: 07-19-2024 Aleksanderboo flowsheet Riya Hinojosa MD Work Phone: [facility] Start: 07-19-2024 End: 07-19-2024 Bamboo flowsheet Riya Hinojosa MD Work Phone: [facility] Start: 07-19-2024 End: 07-19-2024 Office outpatient visit 25 minutes Riya Hinojosa MD Work Phone: [facility] Comment on above: Pre-diabetes (Primar y Dx); Other depression Start: 07-19-2024 End: 07-19-2024 ambulatory RIYA HINOJOSA Not Available Start: 07-06-2024 End: 07-06-2024 Telephone encounter Riya Hinojosa MD Work Phone: [facility] Start: 07-03-2024 End: 07-03-2024 Clinisync Result Encounter Generic External Data Provider [facility] External Department Unsolicited Start: 07-03-2024 End: 07-03-2024 Clinisync Result Encounter Generic External Data Provider [facility] External Department Unsolicited Start: 07-03-2024 End: 07-03-2024 Patient encounter procedure Sukhjinder Trent DO Work Phone: [facility] Work Phone: Start: 07-03-2024 End: 07-03-2024 Periodic preventive med est patient 18-39 yrs Sukhjinder Trent DO Work Phone: [facility] Comment on above: Well woman exam with routine gynecological exam; Encounter for weight management Start: 07-03-2024 End: 07-03-2024 ambulatory SUKHJINDER TRENT Not Available Start: 06-07-2024 End: 06-07-2024 Bamboo flowsheet Sukhjinder [...] Start: 12-01-2023 End: 12-01-2023 Bamboo flowsheet Shefali Koehleramarisisra ASSISTANT CUSTOMER SERVICE MANAGER Work Phone: [facility] Start: 12-01-2023 End: 12-01-2023 Bamboo flowsheet Shefali Koehlerdemetrice ASSISTANT CUSTOMER SERVICE MANAGER Work Phone: [facility] Start: 12-01-2023 End: 12-01-2023 ambulatory SHEFALI KOEHLERDEMETRICE Not Available Start: 12-01-2023 End: 12-01-2023 Office outpatient visit 15 minutes Shefali Koehlerdemetrice ASSISTANT CUSTOMER SERVICE MANAGER Work Phone: [facility] Comment on above: Acute cough (Primary Dx); Acute bronchitis, unspecified organism Start: 09-09-2023 End: 09-09-2023 Departed Referred PHYSICIAN [facility] [address] Work Phone: Start: 09-09-2023 End: 09-09-2023 ambulatory PHYSICIAN [facility] Work Phone: Start: 08-12-2023 End: 08-12-2023 [facility] Start: 04-05-2022 End: 04-06-2022 ambulatory PROVIDER UNKNOWN [facility] Start: 04-05-2022 End: 04-05-2022 Subsequent hospital visit by physician [facility] Start: 01-27-2022 End: 01-27-2022 ambulatory Cecilia Perez Other [facility] Other Start: 01-27-2022 Office outpatient vi sit 25 minutes Cecilia Perez [facility] Start: 04-29-2021 End: 04-29-2021 ambulatory Cecilia Perez Other [facility] [employer] Other Start: 04-29-2021 Office outpatient vi sit 25 minutes Cecilia Perez [facility] Start: 06-01-2019 End: 06-02-2019 [...] Start: 10-03-2018 End: 10-03-2018 Patient encounter procedure JAIDNE TOTH Facility:[facility] Start: 09-02-2018 End: 09-03-2018 Patient encounter procedure JAIDEN TOTH Facility:[facility] Start: 06-12-2018 End: 06-13-2018 Patient encounter procedure JAIDEN TOTH Facility:[facility] Procedures Date Procedure Procedure Detail Performing Clinician Start: 07-24-2024 COLPOSCOPY Sukhjinder Fazi o DO Work Phone: Start: 07-24-2024 Urine test visual color cmprsn meths Sukhjinder Trent DO Work Phone: Start: 07-03-2024 Urnls dip stick/tabl et rgnt non-auto w/o micrscp Sukhjinder Trent DO Work Phone: Start: 07-03-2024 ALL CBC WITH AUTO DIFF Sukhjinder Trent DO Work Phone: Start: 12-01-2023 STATUS COVID-19/FLU Abhi tomasz Calvillo ASSISTANT CUSTOMER SERVICE MANAGER Work Phone: Start: 04-29-2022 Microscopic observat ion [Identifier] in Cervix by Cyto stain Sukhjinder Trent DO Work Phone: Start: 04-29-2022 Cytp cerv/vag auto t hin layer prep mnl screen Farncia A Pranav ASSISTANT CUSTOMER SERVICE MANAGER Work Phone: Start: 10-18-2018 Delivery of Products of Conception, External Approach JAIDEN TOTH Start: 10-18-2018 Drainage of Amniotic Fluid, Therapeutic from Products of Conception, Via Natural or Artificial Opening JAIDEN NAVNEET Start: 10-18-2018 Repair Perineum Skin , External Approach JAIDEN TOTH Plan of Treatment Date Care Activity Detail Author Start: 04-30-2027 Screening for malign ant neoplasm of cervix [facility] Start: 01-28-2025 End: 01-28-2025 Patient encounter procedure 01/28/2025 10:20 AM EST [facility] [address] [place] [phone] Sukhjinder Newman, DO [address] [place], [place] [id number] [facility] Start: 10-26-2024 End: 10-26-2024 Patient encounter procedure 10/26/2024 9:30 AM EDT [facility] [address] [place] [phone] Riya Hinojosa MD [address] [place] [address] [facility] Start: 10-08-2024 Influenza vaccination Influenz a Vaccine (Season Ended) [facility] Start: 07-24-2024 End: 07-24-2024 Patient encounter procedure 07/24/2024 9:30 AM EDT Procedure Visit [facility] [address] [place] [address] Sukhjinder Newman, DO [address] [place] [address] [facility] Start: 07-19-2024 End: 07-19-2024 Patient encounter procedure 07/19/2024 9:30 AM EDT Procedure Visit [facility] [address] [facility] [place] [id number] Sukhjinder Newman, DO [address] [place] [address] [facility] Start: 07-03-2024 End: 07-03-2024 Patient encounter procedure 07/03/2024 11:40 AM EDT Office Visit [facility] [address] [facility] [place] [id number] Sukhjinder Newman, DO [address] [place] [address] [facility] Start: 06-07-2024 End: 06-07-2025 [...] with irregular cycle Expected: 06/07/2024, Expires: 12/08/2024 [facility] Comment on above: Expected: 06/07/2024 , Expires: 12/08/2024 Start: 06-07-2024 End: 06-07-2024 Patient encounter procedure 06/07/2024 9:10 AM EDT Office Visit [facility] [address] [facility] [place] [id number] Sukhjinder Newman, [address] [place] [address] Arrived [facility] Comment on above: Arrived Start: 10-09-2023 Influenza vaccination Influenza Vacc ine (#1) [facility] Start: 09-07-2021 Influenza vaccination Flu vaccine (# 1) [facility] Start: 04-15-2021 Screening for malign ant neoplasm of cervix [facility] Start: 04-15-2012 Screening for malign ant neoplasm of cervix Pap Smear [facility] Start: 04-15-2010 DTaP/Tdap/Td vaccine (1 - Tdap) DTaP/Tdap/Td vaccine (1 - Tdap) [facility] Start: 1991 COVID-19 Vaccine (#1) COVID-19 Vacci ne (#1) [facility] CBC W Auto Different ial panel - Blood CBC and differential Lab Routine PCOS (polycystic ovarian syndrome) Encounter for weight management Menorrhagia with irregular cycle Ordered: 06/07/2024 [facility] Comment on above: Ordered: 06/07/2024 Cytology Cervical or vaginal smear or scraping study Pap Smear Pathology and Cytology Routine Well woman exam with routine gynecological exam Ordered: 07/03/2024 [facility] Work Phone: Comment on above: Ordered: 07/03/2024 DHEA-sulfate DHEA-sulfate Lab Routine PCOS (polycystic ovarian syndrome) Encounter for weight management Menorrhagia with irregular cycle Ordered: 06/07/2024 [facility] Comment on above: Ordered: 06/07/2024 Estradiol Estradiol Lab Ro utine PCOS (polycystic ovarian syndrome) Encounter for weight management Menorrhagia with irregular cycle Ordered: 06/07/2024 [facility] Comment on above: Ordered: 06/07/2024 Follicle stimulating hormone Follicle stimulating hormone Lab Routine PCOS (polycystic ovarian syndrome) Encounter for weight management Menorrhagia with irregular cycle Ordered: 06/07/2024 [facility] Comment on above: Ordered: 06/07/2024 Glucose measurement estimated from glycated hemoglobin [facility] hCG, quantitative, hCG, quantitative, Lab Routine PCOS (polycystic ovarian syndrome) Encounter for weight management Menorrhagia with irregular cycle Ordered: 06/07/2024 [facility] Work Phone: Comment on above: Ordered: 06/07/2024 Hemoglobin A1c/Hemoglobin.total in Blood Hemoglobin A1c Lab Routine PCOS (polycystic ovarian syndrome) Encounter for weight management Menorrhagia with irregular cycle Ordered: 06/07/2024 [facility] Comment on above: Ordered: 06/07/2024 Human papilloma viru s DNA [Presence] in Unspecified specimen by Probe with amplification HPV DNA probe, amplified Microbiology Routine Well woman exam with routine gynecological exam Ordered: 07/03/2024 [facility] Comment on above: Ordered: 07/03/2024 Luteinizing hormone Luteinizing hormone Lab Routine PCOS (polycystic ovarian syndrome) Encounter for weight management Menorrhagia with irregular cycle Ordered: 06/07/2024 [facility] Comment on above: Ordered: 06/07/2024 Thyrotropin [Units/volume] in Serum or Plasma TSH Lab Routine PCOS (polycystic ovarian syndrome) Encounter for weight management Menorrhagia with irregular cycle Ordered: 06/07/2024 [facility] Comment on above: Ordered: 06/07/2024 Thyroxine (T4) free [Mass/volume] in Serum or Plasma T4, free Lab Routine PCOS (polycystic ovarian syndrome) Encounter for weight management Menorrhagia with irregular cycle Ordered: 06/07/2024 [facility] Comment on above: Ordered: 06/07/2024 End: 04-05-2022 Varicella Zoster Antibody, IgG [facility] Work Phone: Comment on above: Once for 1 Occurrenc es starting 04/05/2022 until 04/05/2022 [facility] Immunizations Immunization Date Immunization Notes Care Provider [facility] 01-14-2022 influenza, injectabl e, quadrivalent, preservative free Shefali Calvillo ASSISTANT CUSTOMER SERVICE MANAGER Work Phone: [facility] 01-14-2022 influenza virus vacc ine, unspecified formulation Shefali Calvillo ASSISTANT CUSTOMER SERVICE MANAGER Work Phone: [facility] 07-24-2019 tetanus toxoid, redu kayla diphtheria toxoid, and acellular pertussis vaccine, adsorbed Shefali Calvillo ASSISTANT CUSTOMER SERVICE MANAGER Work Phone: [facility] 11-23-2018 Influenza, injectabl e, Madin Lorena Canine Kidney, preservative free, quadrivalent Shefali Kampfer ASSISTANT CUSTOMER SERVICE MANAGER Work Phone: [facility] 03-08-2018 influenza, injectabl e, quadrivalent, contains preservative Shefali Kampfer ASSISTANT CUSTOMER SERVICE MANAGER Work Phone: [facility] 02-27-2018 Influenza, injectabl e, Madin Daisy Canine Kidney, preservative free, quadrivalent Shefali Kampfer ASSISTANT CUSTOMER SERVICE MANAGER Work Phone: [facility] 02-27-2018 tuberculin skin test ; purified protein derivative solution, intradermal Shefali Koehlerpfer ASSISTANT CUSTOMER SERVICE MANAGER Work Phone: [facility] 12-05-2014 influenza, seasonal, injectable Shefali Kampfer ASSISTANT CUSTOMER SERVICE MANAGER Work Phone: [facility] 10-20-1996 hepatitis B vaccine, adult dosage Shefali Kampfer ASSISTANT CUSTOMER SERVICE MANAGER Work Phone: [facility] 09-19-1996 diphtheria, tetanus toxoids and acellular pertussis vaccine, unspecified formulation Shefali Kampfer ASSISTANT CUSTOMER SERVICE MANAGER Work Phone: [facility] 09-19-1996 hepatitis B vaccine, pediatric or pediatric/adolescent dosage Shefali Kampfer ASSISTANT CUSTOMER SERVICE MANAGER Work Phone: [facility] 09-19-1996 measles, mumps and rubella virus vaccine Shefali Kampfer ASSISTANT CUSTOMER SERVICE MANAGER Work Phone: [facility] 09-19-1996 trivalent poliovirus vaccine, live, oral Shefalitomasz Koehlerpfer ASSISTANT CUSTOMER SERVICE MANAGER Work Phone: [facility] 08-05-1995 hepatitis B vaccine, pediatric or pediatric/adolescent dosage Shefali Kampfer ASSISTANT CUSTOMER SERVICE MANAGER Work Phone: [facility] 06-05-1995 hepatitis B vaccine, adult dosage Shefali Kampfer ASSISTANT CUSTOMER SERVICE MANAGER Work Phone: [facility] 10-20-1992 diphtheria, tetanus toxoids and acellular pertussis vaccine, unspecified formulation Shefali Kampfer ASSISTANT CUSTOMER SERVICE MANAGER Work Phone: [facility] 10-20-1992 trivalent poliovirus vaccine, live, oral Shefalitomasz Koehlerpfer ASSISTANT CUSTOMER SERVICE MANAGER Work Phone: [facility] 07-02-1992 haemophilus influenz ae type b vaccine, conjugate unspecified formulation Shefali Calvillo ASSISTANT CUSTOMER SERVICE MANAGER Work Phone: [facility] 07-02-1992 measles, mumps and rubella virus vaccine Shefali Gordonfer ASSISTANT CUSTOMER SERVICE MANAGER Work Phone: [facility] 1991 diphtheria, tetanus toxoids and pertussis vaccine Shefali Calvillo ASSISTANT CUSTOMER SERVICE MANAGER Work Phone: [facility] 1991 haemophilus influenz ae type b vaccine, conjugate unspecified formulation Shefali Calvillo ASSISTANT CUSTOMER SERVICE MANAGER Work Phone: [facility] 1991 diphtheria, tetanus toxoids and pertussis vaccine Shefali Koehlerpfer ASSISTANT CUSTOMER SERVICE MANAGER Work Phone: [facility] 1991 haemophilus influenz ae type b vaccine, conjugate unspecified formulation Shefali Calvillo ASSISTANT CUSTOMER SERVICE MANAGER Work Phone: [facility] 1991 trivalent poliovirus vaccine, live, oral Shefali Calvillo ASSISTANT CUSTOMER SERVICE MANAGER Work Phone: [facility] 1991 diphtheria, tetanus toxoids and pertussis vaccine Shefali Calvillo ASSISTANT CUSTOMER SERVICE MANAGER Work Phone: [facility] 1991 haemophilus influenz ae type b vaccine, conjugate unspecified formulation Shefali Calvillo ASSISTANT CUSTOMER SERVICE MANAGER Work Phone: [facility] 1991 trivalent poliovirus vaccine, live, oral Shefali Calvillo ASSISTANT CUSTOMER SERVICE MANAGER Work Phone: [facility] Payers Date Payer Category Payer Medicaid [id number] 2023 Medicaid [id number] 2023 Private Health Insurance [employer] [id number] 2023 Medicaid [id number] 2023 Unknown [id number] 2023 Self-pay [id number] 1991 Unknown [id number] 2.16.840.1.056665.3.579.2. 593 1991 Unknown [id number] 2.16.840.1.223490.3.579.2. 593 1991 Unknown [id number] 2.16.840.1.492671.3.579.2. 593 1991 Unknown [id number] 2.16.840.1.757411.3.579.2. 593 1991 Unknown [id number] 2.16.840.1.049036.3.579.2. 593 1991 Unknown [id number] 2.16.840.1.357921.3.579.2. 593 1991 Unknown [id number] 2.16.840.1.070406.3.579.2. 593 1991 Unknown [id number] 2.16.840.1.941934.3.579.2. 593 1991 Unknown [id number] 2.16.840.1.830445.3.579.2. 593 1991 Unknown [id number] 2.16.840.1.541621.3.579.2. 593 1991 Unknown [id number] 2.16.840.1.731778.3.579.2. 593 1991 Unknown [id number] 2.16.840.1.102070.3.579.2. 1286 1991 Unknown [id number] 2.16.840.1.451794.3.579.2. 1259 1991 Unknown [id number] 2.16.840.1.025903.3.579.2. 1259 1991 Unknown [id number] 2.16.840.1.798392.3.579.2. 1259 1991 Unknown [id number] 2.16.840.1.504008.3.579.2. 1259 1991 Unknown [id number] 2.16.840.1.393025.3.579.2. 1259 1959 Unknown [id number] Unknown [id number] 2.16.840.1.249198.19 Unknown [id number] 2.16.840.1.503722.3.579.2. 531 Unknown [id number] 2.16.840.1.585194.3.579.2. 531 Worker's Compensation Social History Date Type Detail Facility Start: 10-05-2022 End: 07-19-2024 Sex Assigned At [facility] Other Tobacco smoking status NVIS Tobacco smoking consumption unknown [facility] [employer] Phone: Start: 1991 Sex Assigned At Not on file [facility] [employer] Phone: Start: 09-18-2016 End: 10-05-2022 Tobacco smoking status NVIS Never smoked tobacco (finding) [facility] Start: 1990 Sex Assigned At Female F [facility] Start: 10-05-2022 Tobacco use and exposure Smokeless tobacco non-user [facility] Start: 10-05-2022 End: 07-19-2024 Alcoholic beverage intake Lifetime non-drinker (finding) [facility] Start: 10-05-2022 End: 07-19-2024 History of Social function [facility] Start: 10-05-2022 Alcohol Comment Caffeine: none [facility] Start: 07-19-2024 Alcohol Comment Caffeine: 1-2 weekly [facility] Clinical Notes 04-29-2021 to 07-24-2024 Comfort Lopez LPN - 07/24/2024 9:30 AM Kay Hinojosa MD - 07/19/2024 11:30 AM EDTTelephone Encounter - Jerome Cerna - 07/06/2024 1:12 PM EDTTelephone Encounter - Jerome Ceran - 07/06/2024 1:12 PM EDT Note Date & Type Note Facility 07-24-2024 History of Presen t illness Narrative Associated Order(s): Colposcopy Post-Procedure Diagnose(s): LGSIL on Pap smear of cervix; High risk human papillomavirus (HPV) DNA test positive Reason for Appointment: Patient ID: Ann-Marie López is a 34 y.o. female who presents for Abnormal Pap Smear Patient presents today for a Colposcopy appointment. MEDICATIONS Current Outpatient Medications Medication Instructions escitalopram (LEXAPRO) 5 mg, Oral, Daily metFORMIN XR (GLUCOPHAGE-XR) 1,000 mg, Oral, Daily with breakfast, Do not crush, chew, or split. 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, antepartum ([facility]) 06/23/2018 Depression 12/01/2023 General counseling and advice for contraceptive management 12/01/2023 Heavy menstrual bleeding 12/01/2023 High risk sexual behavior 12/01/2023 Intractable migraine with aura without status migrainosus 12/01/2023 Irregular periods 12/01/2023 Leukocytes in urine 12/01/2023 Obesity 12/01/2023 Request for sterilization 09/17/2019 Screening for malignant neoplasm of cervix 12/01/2023 Shingles 12/01/2023 Weight gain 12/01/2023 PCOS (polycystic ovarian syndrome) 06/07/2024 Encounter for weight management 06/07/2024 Resolved Ambulatory Problems Diagnosis Date Noted No Resolved Ambulatory Problems Past Medical History: Diagnosis Date Allergies Asthma (HCC) History of being hospitalized HISTORY PAST MEDICAL HISTORY SOCIAL HISTORY Past Medical History: Diagnosis Date Allergies Asthma (HCC) History of being hospitalized Childbirth: 02/2011, 02/2013, 10/2018, 09/2019 PCOS (polycystic ovarian syndrome) Social History Tobacco Use Smoking status: Never Smokeless tobacco: Never Substance Use Topics Alcohol use: Never Comment: Caffeine: 1-2 weekly Drug use: Never FAMILY HISTORY Family History [...] Constitutional: Appearance: Normal appearance. She is well-developed. Genitourinary: Vulva normal. Cardiovascular: Rate and Rhythm: Normal rate and [...] nursing note reviewed. Exam conducted with a net software engineer present. Vitals: Estimated body mass index is 39.01 kg/m as calculated from the following: Height as of 05/28/22: 5' 5 . Weight as of this encounter: 234 lb 6.4 oz. BP: 126/86 Patient's last menstrual period was 07/10/2024 (exact date). ASSESSMENT & PLAN Assessment/Plan Encounter Diagnosis: ICD-10-CM 1. LGSIL on Pap smear of cervix R87.612 POCT , urine manually resulted 2. High risk human papillomavirus (HPV) DNA test positive R87.89 POCT , urine manually resulted Colposcopy Date/Time: 07/24/2024 10:21 AM Performed by: Sukhjinder Newman DO Authorized by: Sukhjinder Newman DO Procedure location: cervix Consent: Patient questions answered: yes Risks and benefits of the procedure and its alternatives discussed: yes Consent obtained: Written Consent given by: Patient Indication: Other indication(s): clinical abnormality Pre-procedure: Prep solution(s): acetic acid Procedure: Colposcopy with: endocervical curettage Colposcopy details: Colposcopy: Patient is doing well and has no complaints. Pap results have been reviewed with the patient in great detail and patient voiced understanding. Patient presents today for a Colposcopy with ECC. Patient was placed in dorsal lithotomy position with feet in stirrups, a sterile speculum was placed into the vagina and the cervix was visualized. Cervix was cleansed with vinegar. Postprocedural instructions given. All if patients questions answered and she expressed understanding. Advised to call in interim with questions or concerns. Follow Up: Patient is to return in 6 months for Repeat Pap. Cervix visibility: fully visualized Ferric subsulfate solution applied: no Tampon inserted: no Post-procedure: Patient tolerance of procedure: Patient tolerated the procedure well with no immediate complications Instructions and paperwork completed: yes Educational handouts given: no Documented by Comfort Lopez LPN on behalf of: Sukhjinder Newman DO documented in this encounter [facility] 07-19-2024 History of Presen t illness Narrative Images from the original note were not included. Ann-Marie López is a 34 y.o. female presents with chief complaint of Results (Here to discuss labs done by [facility]. Ever since she has got her tubes taken out she feels her weight has slowly increasing. Has tried increased water intake, fasting, carnivore diet, and calorie counting. ) HPI: HPI History of Present Illness The patient presents for evaluation of prediabetes, plantar fasciitis, and stress. She has been diagnosed with prediabetes, a condition she is striving to manage effectively. She reports no symptoms of increased thirst or tremors. Her work schedule often results in late meals, typically between 2:00 and 4:00 PM. Her diet primarily consists of salads with grilled chicken, light ranch or [place]serratian dressing, and occasional rice. She maintains a high water intake, supplemented with True Lemon. She occasionally consumes wine or Sprite, but avoids Pepsi. She also consumes chicken and salmon, seasoned with butter and other condiments. She has been on metformin since the end of 05/2024 or beginning of 06/2024, initially experiencing diarrhea for the first 1.5 to 2 weeks, but has since adjusted to the medication. Her current weight is 233.2 pounds, a slight increase from her previous weight of 232 pounds. She expresses a desire to lose weight and improve her health for the sake of her children. She acknowledges that both sides of her family have a history of diabetes, which may contribute to her condition. She reports experiencing heel pain upon waking, which improves as the day progresses. 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 She describes feeling emotionally overwhelmed and frequently cries. She attributes these feelings to stress and poor sleep quality. She initially suspected thyroid issues due to unexplained weight gain, despite various dietary modifications and increased water intake. She also reports hair loss and irregular menstrual cycles, occurring 1 to 3 times per month, accompanied by nausea, vomiting, and severe pain during the first 3 days. She has been advised to undergo ablation therapy. She has tested negative for PCOS and thyroid disorders. She has been informed of a positive HPV test result and is scheduled for a colposcopy on Tuesday. GYNECOLOGICAL HISTORY: - Frequency and Flow: 1 to 3 periods per month, severe pain, nausea, vomiting - Menstrual Pain: Present SOCIAL HISTORY She drinks a glass of wine 1 to 2 times a week if her weight is good. FAMILY HISTORY Her mother has diabetes and cervical issues. Her father has high cholesterol and high blood pressure. SUBJECTIVE: MEDICATIONS: ALLERGIES Current Outpatient Medications Medication Instructions metFORMIN XR (GLUCOPHAGE-XR) 500 mg, Oral, Daily with evening meal, Do not crush, chew, or split. Tirzepatide (Mounjaro) 2.5 MG/0.5ML solution auto-injector 0.5 mL, Subcutaneous, Weekly Allergies Allergen Reactions Penicillins Hives and Unknown Vancomycin Red man Syndrome PAST MEDICAL HISTORY: SOCIAL HISTORY SURGICAL HISTORY: Past Medical History: Diagnosis Date Allergies Asthma (HCC) History of being hospitalized Childbirth: 02/2011, 02/2013, 10/2018, 09/2019 PCOS (polycystic ovarian syndrome) Social History Tobacco Use Smoking status: Never Smokeless tobacco: Never Substance Use Topics Alcohol use: Never Comment: Caffeine: 1-2 weekly Drug use: Never Past Surgical History: Procedure Laterality Date COLPOSCOPY 2018 nig- high risk HPV LIPOSUCTION 2022 OTHER SURGICAL HISTORY 01/2020 Tubes removed REVIEW OF SYMPTOMS: Review of Systems OBJECTIVE: Vitals: 07/19/24 1130 BP: 120/84 Pulse: 88 Temp: 97.1 F SpO2: 96% Physical Exam Vitals and nursing note reviewed. Constitutional: Appearance: Normal appearance. Cardiovascular: Rate and Rhythm: Normal rate and regular rhythm. Pulses: Normal pulses. Heart sounds: Normal heart sounds. Pulmonary: Effort: Pulmonary effort is normal. Breath sounds: Normal breath sounds. Musculoskeletal: Cervical back: Normal range of motion and neck supple. Neurological: General: No focal deficit present. Mental Status: She is alert. ASSESSMENT AND PLAN: Assessment & Plan 1. Prediabetes. - A1c level is currently at 6.2, indicating a borderline prediabetic state. - Increased pain and limited mobility. - The importance of maintaining a healthy diet and regular exercise was emphasized, as even a modest weight loss of 10 pounds can significantly reduce insulin resistance. The potential benefits of diabetes education were discussed. - The dosage of metformin will be increased to 1000 mg, which may initially cause some bowel disturbances, but these should subside over time. A recheck of her A1c level will be conducted in 3 months to assess the effectiveness of the increased metformin dosage. 2. Plantar fasciitis. - Heel pain is more indicative of plantar fasciitis than neuropathy. - Increased pain and limited mobility. - She was advised to perform stretching exercises throughout the day, such as wrapping a towel or rope around the top of her foot and pulling it back for 10 seconds, repeating this 5 to 10 times on each side. - The use of anti-inflammatories was suggested if necessary, but long-term use is not recommended. 3. Stress. - Reports feeling overwhelmed and emotional due to her health concerns and other stressors. - Increased pain and limited mobility. - The potential benefits of medication to manage her stress and anxiety were discussed. - A prescription for Lexapro at the lowest dose will be provided, with a plan to keep her on this medication for 3 months. If she experiences a 25% improvement in her symptoms within 4 weeks, she can contact us to increase the dosage to 10 mg. If the medication is effective but not sufficient, adjustments can be made before her next appointment in 3 months. Follow-up - The patient will follow up in 3 months. Assessment/Plan Problem List Items Addressed This Visit Depression Relevant Medications escitalopram (Lexapro) 5 MG tablet Other Visit Diagnoses Pre-diabetes - Primary Relevant Medications metFORMIN XR (Glucophage-XR) 500 MG 24 hr tablet No follow-ups on file. documented in this encounter [facility] 07-06-2024 Telephone encount er Note Hi, my name is Ann-Marie Guerra. My date of is [id number], and I had an appointment with my OBGYN, Dr. Newman, and they did some blood work and then they had prescribed me Reza to start and they said that my insurance covers it, but they need a diagnosis for diabetic Or pre diabetic, but that they can not do that. I have to follow up with my primary care dr. because of the prior author, the information would go to you guys and get sent to the pharmacy again. Anyways, my lot of work should be on file with Dr Newman, and I know he is with [facility] now. But my A1C was a 6.2. I did not know what I need to do from here forward if I need to come and see Dr Ghosh or not, if you can give me a call. Back my numbers. [phone]. Thanks so much, sp snowden *does she need an appt ?? [facility] 07-06-2024 Miscellaneous Notes Formattin g of this note might be different from the original. Hi, my name is Ann-Marie Guerra. My date of is [id number], and I had an appointment with my OBGYN, Dr. Newman, and they did some blood work and then they had prescribed me Reza to start and they said that my insurance covers it, but they need a diagnosis for diabetic Or pre diabetic, but that they can not do that. I have to follow up with my primary care dr. because of the prior author, the information would go to you guys and get sent to the pharmacy again. Anyways, my lot of work should be on file with Dr Newman, and I know he is with [facility] now. But my A1C was a 6.2. I did not know what I need to do from here forward if I need to come and see Dr Ghosh or not, if you can give me a call. Back my numbers. [phone]. Thanks so much, sp snowden *does she need an appt ?? documented in this encounter [facility] 07-03-2024 History of Presen t illness Narrative Reason for Appointment: Patient ID: Ann-Marie López is a 34 y.o. female who presents for [facility] Women Visit and encounter for weight management Patient presents today for Annual Exam. MEDICATIONS Current Outpatient Medications Medication Instructions metFORMIN XR (GLUCOPHAGE-XR) 500 mg, Oral, Daily with evening meal, Do not crush, chew, or split. ALLERGIES Allergies Allergen Reactions Penicillins Hives and [...] Past Surgical History: Procedure Laterality Date COLPOSCOPY 2017 nig- high risk HPV LIPOSUCTION 2022 OTHER [...] Constitutional: Appearance: Normal appearance. She is well-developed. Genitourinary: Vulva normal. Right Adnexa: not tender and no mass present. Left Adnexa: not tender and no mass present. No cervical discharge. Breasts: Breasts are soft. Right: Normal. Left: Normal. HENT: Head: Normocephalic. Nose: Nose normal. Mouth/Throat: Mouth: Mucous membranes are moist. Cardiovascular: Rate and Rhythm: Normal rate and regular rhythm. Pulmonary: Effort: Pulmonary effort is normal. Breath sounds: Normal breath sounds. Abdominal: General: Bowel sounds are normal. There is no distension. Palpations: Abdomen is soft. Tenderness: There is no abdominal tenderness. There is no guarding or rebound. Musculoskeletal: General: No swelling. Normal range of motion. Cervical back: Normal range of motion. Right lower leg: No edema. Left lower leg: No edema. Neurological: General: No focal deficit present. Mental Status: She is alert and oriented to person, place, and time. Skin: General: Skin is warm and dry. Psychiatric: Mood and Affect: Mood normal. Behavior: Behavior normal. Vitals and nursing note reviewed. Exam conducted with a net software engineer present. Vitals: Estimated body mass index is 38.63 kg/m as calculated from the following: Height as of 05/28/22: 5' 5 . Weight as of this encounter: 232 lb 1.9 oz. BP: 120/80 Patient's last menstrual period was 06/14/2024. ASSESSMENT & PLAN ICD-10-CM 1. Well woman exam with routine gynecological exam Z01.419 Pap Smear HPV DNA probe, amplified POCT urinalysis dipstick manually resulted 2. Encounter for weight management Z76.89 Annual Exam: Patient presents today for an annual exam. Patient states she is doing well and has no complaints. Pap was obtained without difficulty. Pt wanting to discuss GLP1 weight loss medications. Labs reviewed. Orders Placed This Encounter Procedures HPV DNA probe, amplified POCT urinalysis dipstick manually resulted Patient results reviewed, A1C is 6.1. she is going to reach out to insurance to see if GLP 1 are covered Follow Up: Patient is to return in one year for annual unless needed otherwise. Documented by Jackie Schultz MA on behalf of:melissa ochoa documented in this encounter [facility] 06-07-2024 History of Presen t illness Narrative [...] carrier in second trimester, antepartum 06/23/2018 Depression ([facility]) 12/01/2023 General counseling and advice for contraceptive [...] Past Surgical History: Procedure Laterality Date COLPOSCOPY 2017 nig- high risk HPV LIPOSUCTION 2022 OTHER [...] nursing note reviewed. Exam conducted with a net software engineer present. Vitals: Estimated body mass index is [...] prior to pre-op appointment. Documented by Yaneth Qureshi LPN on behalf of: Sukhjinder Newman DO documented in this encounter [facility] 12-01-2023 History of Presen t illness Narrative [...] Past Medical History: Diagnosis Date Allergies Asthma ([facility]) History of being hospitalized Childbirth: 02/2011, 02/2013, [...] Patient voiced understanding. documented in this encounter [facility] 01-27-2022 Evaluation note Encounter Date Diagnosis Assessment [...] (suspected) exposure to covid-19 (ICD-10 - Z20.822) [facility] Other 03-23-2022 Evaluation note* Encounter Date Diagnosis Assessment Notes Treatment Notes Treatment Clinical Notes Apr, Dysuria (ICD-10 - R30.0) Apr, Urinary tract infection, site not specified (ICD-10 - N39.0) Drink plenty fluids, get plenty of rest. Take the Macrobid and Pyridium and Diflucan as prescribed until gone. Tylenol Motrin as needed for aches pains or fevers. Follow-up with your family physician if no improvement in 2 to 3 days. Apr, Hematuria, unspecified (ICD-10 - R31.9) [facility] Other evaluation noteNo assessment information available [facility] Work Phone: evaluation note* Diagnosis Acute cough- Primary Acute bronchitis, unspecified organism documented in this encounter [facility]* Diagnosis PCOS (polycystic ovarian syndrome) Polycystic ovaries Encounter for weight management Menorrhagia with irregular cycle documented in this encounter [facility]* Diagnosis Well woman exam with routine gynecological exam Routine gynecological examination Encounter for weight management documented in this encounter [facility]* Diagnosis Pre-diabetes- Primary Other abnormal glucose Other depression documented in this encounter [facility]* Diagnosis LGSIL on Pap smear of cervix High risk human papillomavirus (HPV) DNA test positive [facility] - [facility]orted* Type Description Date Surgical History salpingectomy Hospitalization History childbirth [facility] Other Summary Purpose Family History No Family History Records Found Relationship Condition Age at Onset Recorded Date/T loan father Hypertension Unknown mother Diabetes mellitus Unknown Advance Directives No Advanced Directives Records Found Advance Directive Response Recorded Date/ Time Advance Directives No July 17 7:35am Chief Complaint and Reason for Visit Chief Complaint [facility] pre emp pillars Additional Source Comments INFORMATION SOURCE (unrecogn ized section and content) DATE CREATED AUTHOR 06/04/2019 [facility] DATE CREATED AUTHOR AUTHOR'S ORGANIZ ATION 04/09/2022 [facility] DATE CREATED AUTHOR AUTHOR'S ORGANIZ ATION 08/13/[address] [facility] DATE CREATED AUTHOR AUTHOR'S ORGANIZ ATION 07/26/2024 [facility] EP[facility] DATE CREATED AUTHOR AUTHOR'S ORGANIZ ATION 07/27/2024 [facility] REASON FOR VISIT (unrecogniz ed section and content) Reason Comments URI Reason Comments Discuss PCOS Reason Comments Well Women Visit encounter for weight management Reason Comments Results Here to discuss labs done by [facility]. Ever since she has got her tubes taken out she feels her weight has slowly increasing. Has tried increased water intake, fasting, carnivore diet, and calorie counting. Reason Comments Abnormal Pap Smear Care Teams (unrecognized sec tion and content) Team Status: Active Member Role Status Dates PHYSICIAN NO FAMILY Primary Care Provider Active Team Status: Inactive Member Role Status Dates PHYSICIAN NO FAMILY Primary Care Provider Active Start: September 09, 2023 End: September 09, 2023 Cecilia Sutton APRN Attending Provider Active Start: September 09, 2023 End: September 09, 2023 Manager Money Relationship Specialty Start Date End Date Riya Hinojosa MD [address] [place] [address] PCP - General Family Medicine 06/15/22 Manager Money Relationship Specialty Start Date End Date Riya Hinojosa MD [address] [place] [address] PCP - General Family Medicine 06/15/22 Manager Money Relationship Specialty Start Date End Date Riya Hinojosa MD [address] [place] [address] PCP - General Family Medicine 06/15/22 Jagdeep Noemi PCP - [facility] 02/08/24 Manager Money Relationship Specialty Start Date End Date Riya Hinojosa MD [address] [place] [address] PCP - General Family Medicine 06/15/22 Jagdeep Noemi PCP - [facility] [place] [facility] 02/08/24 Manager Money Relationship Specialty Start Date End Date Riya Hinojosa MD [address] [place] [address] PCP - General Family Medicine 06/15/22 Jagdeep Noemi PCP - [facility] [place] [facility] 02/08/24 Manager Money Relationship Specialty Start Date End Date Riya Hinojosa MD [address] [place] [address] PCP - General Family Medicine 06/15/22 Jagdeep Noemi PCP - [facility] [place] [facility] 02/08/24 Manager Money Relationship Specialty Start Date End Date Riya Hinojosa MD [address] [place] [address] PCP - General Family Medicine 06/15/22 Jagdeep Noemi PCP - [facility] [place] [facility] 02/08/24 Manager Money Relationship Specialty Start Date End Date Riya Hinojosa MD [address] [place] [address] PCP - General Family Medicine 06/15/22 Noemi Gannon PCP - [facility] 02/08/24 Goals (unrecognized section and content) Goals [...] BE BASED ON THE PRIMARY CLINICAL RECORDS. [employer] provides no warranty or guarantee of the accuracy or completeness of information in this document.
== END 2024-07-24 15:30 | disposition home or self-care (01) ==
LOC: LAB 07-27 15:31
PROVIDERS: PCP Family Medicine; Visit Provider Obstetrics & Gynecology
DX: R87.612 Low grade squamous intraepithelial lesion on cytologic smear of cervix (LGSIL) (principal)
CPT/HCPCS: 88305; 88342

== ENCOUNTER 2024-08-09 10:09 | Outpatient (OUT) | payer MEDICAID, SELFPAY | END 2024-08-09 10:10 | disposition home or self-care (01) | PROVIDERS: PCP Family Medicine; Visit Provider Obstetrics & Gynecology | DX: Z01.818 Encounter for other preprocedural examination (principal); N92.0 Excessive and frequent menstruation with regular cycle; N93.9 Abnormal uterine and vaginal bleeding, unspecified; R10.2 Pelvic and perineal pain; R87.612 Low grade squamous intraepithelial lesion on cytologic smear of cervix (LGSIL); R87.89 Other abnormal findings in specimens from female genital organs ==

== ENCOUNTER 2024-08-17 07:57 | Day surgery (SDC) | payer MEDICAID, SELFPAY ==
--- OUTSIDE RECORDS SUMMARY | 2024-08-06 08:40 | XMS_ITS | Encounter Summary ---
Author Organization [facility] Address [address] [place] [address] Care Team Providers Care Gantry Rigger Name Role Phone Riya Killian MD Primary Care Provider [phone] Noemi Gannon Unavailable Unavailable Reason for Visit * Reason Comments Discuss procedure Encounter Details Date Type Department Care Team (Late st Contact Info) Description 08/06/2024 8:40 AM EDT Consult [facility] [address] [place] [address] Sukhjinder Newman DO [address] [place], [facility] Encounter to discuss procedure; LGSIL on Pap smear of cervix; Menorrhagia with irregular cycle; HGSIL (high grade squamous intraepithelial lesion) on Pap smear of cervix Social History Tobacco Use Types Packs/Day Years Used Date Smoking Tobacco: Never Smokeless Tobacco: Never Alcohol Use Standard Drinks/Week Comments Never 0 (1 standard drink = 0.6 oz pur e alcohol) Caffeine: 1-2 weekly Comments Unknown Sex and Gender Information Value Date Recorded Sex Assigned at Not on file Legal Sex Female 7:05 PM EDT Gender Identity Not on file Sexual Orientation Not on file documented as of this encounter Last Filed Vital Signs Vital Sign Reading Time Taken Comments Blood Pressure 118/78 08/06/2024 8:48 AM EDT Pulse - - Temperature - - Respiratory Rate - - Oxygen Saturation - - Inhaled Oxygen Concentration - - Weight 106 kg (233 lb 12.8 oz) 08/06/2024 8:48 A M EDT Height - - Body Mass Index 38.91 05/28/2022 12:00 PM EDT documented in this encounter Progress Notes * Comfort Lopez LPN - 08/06/2024 8:40 AM EDT Reason for Appointment: Patient ID: Sylvia López is a 34 y.o. female who presents for Discuss procedure Patient presents today for Consult appointment. MEDICATIONS Current Outpatient Medications Medication Instructions [...] 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, antepartum ([facility]) 06/23/2018 Depression 12/01/2023 General counseling and [...] nursing note reviewed. Exam conducted with a paperhanger contractor present. Vitals: Estimated body mass index is 38.91 kg/m?? as calculated from the following: Height as of 05/28/22: 5' 5 . Weight as of this encounter: 233 lb 12.8 oz. BP: 118/78 Patient's last menstrual period was 07/10/2024 (exact date). ASSESSMENT & PLAN ICD-10-CM 1. Encounter to discuss procedure Z71.89 2. LGSIL on Pap smear of cervix R87.612 3. Menorrhagia with irregular cycle N92.1 4. HGSIL (high grade squamous intraepithelial lesion) on Pap smear of cervix R87.613 Pt presents to discuss surgical management. Pt having LGSIL and HGSIL on pap smear and has a strongfamily history of cancer. Discussed LEEP and endometrial ablation vs hysterectomy. Pre Op: Patient is doing well but has complaints of bleeding and pelvic pain. Patient has tried hormone therapy in the past but all attempts to subside patients issues have failed. I have discussed conservative management vs. surgical management with the patient in detail and patient desires surgical management at this time. Patient will undergo Endometrial Ablation with Divya, LEEP, and endometrial biopsy prior to ablation on 08/17/24. Surgical consents were signed, mmc was reviewed, and patient is to proceed to [facility]. Follow Up: Patient is to follow up between 1-2 weeks post op to assess proper healing and recovery from procedure. Documented by Comfort Lopez LPN on behalf of: Sukhjinder Newman DO documented in this encounter Plan of Treatment Upcoming Encounters Date Type Department Care Team (Late st Contact Info) Description 08/28/2024 11:20 AM EDT Office Visit [facility] [address] [address] Juliette Klein PA [address] [place], [place] [id number] 10/26/2024 9:30 AM EDT Office Visit [facility] [address] [facility] [facility] [place] [phone] Riya Killian MD [address] [facility] [place], [place] [id number] 01/28/2025 10:20 AM EST Procedure Visit [facility] [address] [place] [phone] Sukhjinder Newman DO [address] [place], [place] [id number] documented as of this encounter Visit Diagnoses Diagnosis Encounter to discuss procedure LGSIL on Pap smear of cervix Menorrhagia with irregular cycle HGSIL (high grade squamous intraepithelial lesion) on Pap smear of cervix documented in this encounter Care Teams Gantry Rigger Relationship Specialty Start Date End Date Riya Killian MD [address] [facility] [place], [place] [id number] PCP - General Family Medicine 06/15/22 Noemi Gannon PCP - [facility] STAFF ASSISTANT 02/08/24 documented as of this encounter
[2024-08-09 10:37] VITALS: BP 137/92; PULSE 95; TEMP 36.6; O2SAT 96; BMI 37.7
[2024-08-17] VITALS (7 sets, daily range): BP systolic 135–157; BP diastolic 90–104; PULSE 90–101; TEMP 36–36.2; O2SAT 95–97
--- OUTSIDE RECORDS SUMMARY | 2024-08-17 08:01 | XMS_ITS | Encounter Summary ---
Author Organization [facility] Address [address] [place] [address] Care Team Providers Care Open Pit Quarry Supervisor Name Role Phone Riya Killian MD Primary Care Provider [phone] Noemi Gannon Unavailable Unavailable Encounter Details Date Type Department Care Team (Late Contact Info) Description 07/24/2024 Orders Only [facility] [address] [place] [address] Jackie Schultz MA Social History Tobacco Use Types Packs/Day Years [...] on file documented as of this encounter Plan of Treatment Upcoming Encounters Date Type Department Care Team (Late Contact Info) Description 08/28/2024 11:20 AM EDT Office Visit [facility] [address] [place] [address] Juliette Klein PA [address] [place] [address] [place], [place] [id number] 10/26/2024 9:30 AM EDT Office Visit [facility] [address] [place] [phone] Riya Killian MD [address] [place] [address] 01/28/2025 10:20 AM EST Procedure Visit [facility] [address] [place] [address] Sukhjinder Newman DO [address] [place] [address] [place] [address] documented as of this encounter Procedures Procedure Name Priority Date/Time Associated Diagnosis Comments PAP SMEAR Routine 07/03/2024 12:00 AM EDT documented in this encounter Results * (ABNORMAL) Pap Smear (07/03/2024 12:00 AM EDT) Swab Cervical swab / Unknown Sukhjinder Newman DO LAB CYTOLOGY ORDERABLES Final Re sult EXTERNAL LAB documented in this encounter Visit Diagnoses Not on filedocumented in this encounter Care Teams Open Pit Quarry Supervisor Relationship Specialty Start Date End Date Riya Killian MD [address] [place] [address] PCP - General Family Medicine 06/15/22 Noemi Gannon PCP - [facility] TMD TEACHER ASSISTANT 02/08/24 documented as of this encounter
--- OUTSIDE RECORDS SUMMARY | 2024-08-17 08:01 | XMS_ITS | Clinical Summary ---
Author Organization [facility] Address [id number] [address] [place] [address] Care Team Providers Care Ultrasonographer Name Role Phone Riya Killian MD Primary [...] declined 09/20/2019 How often do you attend zoroastrian or quaker serv ices? Patient declined 09/20/2019 Do you belong to any clubs o r organizations such as zoroastrian groups, unions, fraternal or athletic groups, or [...] Answer Date Recorded Total Score 0 09/20/2019 [facility] of Occupat ional Health - Occupational Stress [...] Recorded Do you need help finding a [facility] and/or a training [...] exists Medical Devices Not on file Insurance [facility] MEDICAID WORKERS COMPENSATION Advance Directives * Full Code (Latest Code Status on File) Date Activated Date Inactivated Comments 09/20/2019 6:09 AM 09/21/2019 9:44 PM Care Teams Ultrasonographer Relationship Specialty Start Date End Date Riya Killian MD [address] [place] [address] PCP - General Family Medicine 09/17/19
--- OUTSIDE RECORDS SUMMARY | 2024-08-17 08:01 | XMS_ITS | Clinical Summary ---
Author Organization [facility] Address [address] [place] [address] Care Team Providers Care Algebra Tutor Name Role Phone Riya Killian MD Primary Care Provider [phone] Noemi Gannon Unavailable Unavailable Allergies Active Allergy Reactions Criticality Noted Date Comments Penicillins Hives,Unknown 12/01/2023 Vancomycin 01/25/2020 Red man Syndrome Medications metFORMIN XR (Glucophage-XR ) 500 MG 24 hr tabletIndicati ons:Pre-diabet es Take 2 tablets (1,000 mg) by mouth in the morning. Take with meals. Do not crush, chew, or split. 180 tablet 1 07/20/19 25 Active escitalopram (Lexapro) 5 MG tabletIndicati ons:Other depression Take 1 tablet (5 mg) by mouth Daily 90 tablet 07/20/19 25 025 Active metFORMIN XR (Glucophage-XR ) 500 MG 24 hr tabletIndicati ons:PCOS (polycystic ovarian syndrome),Enco unter for weight management,Men orrhagia with irregular cycle Take 1 tablet (500 mg) by mouth in the evening. Take with meals Do not crush, chew, or split. 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, antepartum ([facility]) 06/23/2018 Encounters Date Type Department Care Team Description 08/06/2024 8:40 AM EDT Consult [facility] [address] [place] [address] Sukhjinder Newman, Encounter to discuss procedure; LGSIL on Pap smear of cervix; Menorrhagia with irregular cycle; HGSIL (high grade squamous intraepithelial lesion) on Pap smear of cervix 08/06/2024 Bamboo flowsheet [facility] [address] [place] [address] Sukhjinder Newman, 07/25/2024 Abstract [facility] [address] [place] [address] Sukhjinder Newman, 07/24/2024 9:30 AM EDT Procedure Visit [facility] [address] [place] [address] Sukhjinder Newman, LGSIL on Pap smear of cervix; High risk human papillomavirus (HPV) DNA test positive 07/24/2024 Orders Only [facility] [address] [place] [address] Jackie Schultz MA 07/19/2024 11:30 AM EDT Office Visit [facility] [address] [place] [address] Riya Killian MD Pre-diabetes (Primary Dx); Other depression 07/19/2024 Bamboo flowsheet [facility] [address] [facility] [place] [address] Riya Killian MD 07/19/2024 Travel 07/06/2024 Telephone [facility] [address] [facility] [place] [address] Riya Killian MD 07/04/2024 Telephone [facility] [address] [place] [address] Rosa Elena Lee MA 07/04/2024 Telephone [facility] [address] [place] [address] Rosa Elena Lee MA 07/03/2024 11:40 AM EDT Office Visit [facility] [address] [place] [address] Sukhjinder Newman DO Well woman exam with routine gynecological exam; Encounter for weight management 07/03/2024 Clinisync Result Encounter [facility] External Department Unsolicited Provider, Generic External Data 06/07/2024 9:10 AM EDT Office Visit [facility] OB [facility] [place] [address] Sukhjinder Newman DO PCOS (polycystic ovarian syndrome); Encounter for weight management; Menorrhagia with irregular cycle 06/07/2024 Bamboo flowsheet [facility] [address] [facility] [address] Sukhjinder Newman DO from Last 3 Months Immunizations Immunization Administration [...] Pressure 118/78 08/06/2024 8:48 AM EDT Pulse 88 07/19/2024 11:30 AM EDT Temperature 36.2 C (97.1 F) 07/19/2024 11:30 AM EDT Respiratory Rate - - Oxygen Saturation 96% 07/19/2024 11:30 AM EDT Inhaled Oxygen Concentration - - Weight 106 kg (233 lb 12.8 oz) 08/06/2024 8:48 AM EDT Height 165.1 cm (5' 5 ) 05/28/2022 12:00 PM EDT Body Mass Index 38.91 05/28/2022 12:00 PM EDT Plan of Treatment Upcoming Encounters Date Type Department Care Team (Late st Contact Info) Description 08/28/2024 11:20 AM EDT Office Visit [facility] OB [address] [place] [phone] Juliette Klein PA [address] [place] [address] 10/26/2024 9:30 AM EDT Office Visit [facility] [address] [place] [address] Riya Killian MD [address] [facility] [address] [place], [place] [id number] 01/28/2025 10:20 AM EST Procedure Visit [facility] [address] [place] [address] Sukhjinder Newman, DO [address] [place] [address] Health Maintenance Due Date Last Done Comments Influenza Vaccine (#1) 2024 , 11/23/2018, 03/08/2018, Additional history exists Cervical Cancer Screening 04/30/2027 HPV/Cotest 04/30/2027 04/29/2022 Pap Smear 07/04/2027 07/03/2024, 04/29/2022 Procedures Procedure Name Priority Date/Time Associated Diagnosis Comments COLPOSCOPY Routine 07/24/2024 10:21 AM EDT LGSIL on Pap smear of cervix High risk human papillomavirus (HPV) DNA test positive POCT , URINE Routine 07/24/2024 10:07 AM EDT LGSIL on Pap smear of cervix High risk human papillomavirus (HPV) DNA test positive POCT URINALYSIS DIPSTICK Routine 025 11:55 AM EDT Well woman exam with routine gynecological exam IGP,APTIMA HPV,AGE GDLN Routine 07/04/19 25 11:43 AM EDT ALL DEHYDROEPIANDROSTERONE Routine 07/03 9:31 AM EDT ALL ESTRONE(E1) Routine 07/03/2024 9:31 AM EDT ALL PROGESTERONE Routine 07/03/2024 9:31 AM EDT ALL FOLLICLE STIMULATING HORMONE Routine 07/03/2024 9:31 AM EDT ALL LUTEINIZING HORMONE Routine 07/04/19 9:31 AM EDT ALL DHEA SULFATE Routine 07/03/2024 9:31 AM EDT MLR HEMOGLOBIN A1C Routine 07/03/2024 9:31 AM EDT ALL THYROXINE (T4) FREE Routine 07/04/19 9:31 AM EDT TBH PREG QUANT HCG Routine 07/03/2024 9:31 AM EDT ALL THYROID STIM HORMONE Routine 025 9:31 AM EDT ALL CBC WITH AUTO DIFF Routine 9:31 AM EDT PAP SMEAR Routine 07/03/2024 12:00 AM EDT THINPREP PAP (REFL) HPV MRNA E6/E7 Routine 04/29/2022 from Last 3 Months or Most Recently Relevant to Health Maintenance Results * Colposcopy (07/24/2024 10:21 AM EDT) Comfort Duong LPN - 07/24/2024 10:21 AM EDT Comfort Lopez LPN 07/24/2024 2:05 PM Colposcopy Date/Time: 07/24/2024 10:21 [...] paperwork completed: yes Educational handouts given: no Sukhjindercyrus Newman DO IN CLINIC/BEDSIDE ORDERABLES Fin al Result * POCT , urine manually resulted (07/24/2024 10:07 AM EDT) Preg Test, Ur Negative Negative Urine 07/24/2024 10:0 7 AM EDT Yella Rewardslandon [place] POINT OF CARE TEST ENTER/EDIT OR DERABLES Final Result * (ABNORMAL) POCT urinalysis dipstick manually resulted (07/03/2024 11:55 AM EDT) Color, UA Yellow Clarity, UA Clear Glucose, UA Negative Negative - 2000(110) ++++ mg/dL Bilirubin, UA Negative Negative - 4(70) +++ mg/dL Ketones, UA Negative Negative - 160(16) ++++ mg/dL Spec Grav, UA 1.030 1 - 1.03 Blood, UA Positive Negative - 50 Sonny/mcL Comment:trace-intact pH, UA 5.5 5 - 9 Protein, UA Positive Negative - 2000(20) ++++ mg/dL Comment:30 Urobilinogen, UA 0.2 0.2 - 12 mg/dL Leukocytes, UA Positive Negative - 500+++ Venecia/mcL Comment:small Nitrite, UA Negative Negative - Positive Urine 07/03/2024 11:5 5 AM EDT us Sukhjinder Newman DO POINT OF CARE TEST ENTER/EDIT OR DERABLES Final Result * (ABNORMAL) IGP,APTIMA HPV,AGE GDLN (07/03/2024 11:43 AM EDT) AGE GDLN ACOG TESTING Note . [facility] Comment: TESTS RESULT FLAG UNITS REF RANGE LAB Clinician Provided Cytology Information Source.............Cervix;Endocervix No. of containers..01 ThinPrep Vial Age Algo ACOG Olamide... 30-65 01 FLAG LEGEND: L-Low Normal,H-High Normal,LL-Alert Low,HH-Alert High <-Panic Low,>-Panic High,A-Abnormal,AA-Critical Abnormal Performed at: 01 =[facility] [address] [place] [address] Adilia Perez MD, IGP, APTIMA HPV, RFX 16/18,45 Note(A) . [facility] Comment: TESTS RESULT FLAG UNITS REF RANGE LAB DIAGNOSIS: [A] 02 EPITHELIAL CELL ABNORMALITY. LOW GRADE SQUAMOUS INTRAEPITHELIAL LESION (LSIL). Recommendation: [A] 02 Suggest follow up as clinically appropriate. Specimen adequacy: 02 Satisfactory for evaluation. Endocervical and/or squamous metaplastic cells (endocervical component) are present. Performed by: 02 Palma Campbell, Magazine Supervisor (ASCP) Electronically si... Marika Waldrop MD, Pathologist . 02 Pathologist ICD10: 02 R87.612 Note: Note 02 The Pap smear is a screening test designed to aid in the detection of premalignant and malignant conditions of the uterine cervix. It is not a diagnostic procedure and should not be used as the sole means of detecting cervical cancer. Both false-positive and false-negative reports do occur. Test Methodology: Note 02 This liquid based ThinPrep(R) pap test was screened with the use of an image guided system. HPV Genotype Reflex Note 02 Criteria not met, HPV Genotype not performed. FLAG LEGEND: L-Low Normal,H-High Normal,LL-Alert Low,HH-Alert High <-Panic Low,>-Panic High,A-Abnormal,AA-Critical Abnormal Performed at: [address] [facility] [place] [address] Adilia Perez MD, HPV APTIMA Positive( A) Negative TB Comment: This nucleic acid amplification test detects fourteen high- risk HPV types (16,18,31,33,35,39,45,51,52,56,58,59,66,68) without differentiation. Performed at: = - [facility] [address], [place] [id number] Health Information Provider: Adilia Perez MD, Phone: [phone] Performed at: - [address] [id number] Health Information Provider: Adilia Perez MD, Phone: [phone] 07/03/2024 11:4 3 AM EDT 07/03/2024 9:53 PM EDT Narrative CLINISYNC - 07/09/2024 3:13 PM EDT BRUSH-SPATULA CERVIX ENDOCERVIX us Generic External Data Provider LAB BLOOD ORDERAB LES Final Result [facility] * TBH PREG QUANT HCG (07/03/2024 9:31 AM EDT) HCG QUANTITATIVE <1 mIU/mL TB Comment: 5-50 0.2-1 WEEK 50-500 1-2 WEEKS 100-5,000 2-3 WEEKS 500-10,000 3-4 WEEKS 1,000-50,000 4-5 WEEKS 10,000-100,000 5-6 WEEKS 15,000-200,000 6-8 WEEKS 10,000-100,000 2-3 MONTHS 07/03/2024 9:31 AM EDT 07/03/2024 9:33 AM EDT Narrative CLINISYNC - 07/03/2024 10:28 AM EDT us Sukhjinder Trent DO CLINISYNC Final Result Performing Organization Address [facility]/ZIP Co de Phone Number [facility] * MLR HEMOGLOBIN A1C (07/03/2024 9:31 AM EDT) GLYCOHEMOGLOBIN A1C 6.2 4.5 - 6.2 % TB Comment: ADA RECOMMENDED LIMIT 4.0 - 6.0 ADA THERAPEUTIC TARGET < 7.0 ACTION SUGGESTED > 7.0 ESTIMATED AVERAGE GLUCOSE 131 mg/dL TB 07/03/2024 9:31 AM EDT 07/03/2024 9:33 AM EDT Narrative CLINISYNC - 07/03/2024 11:23 AM EDT Generic External Data Provider CLINISYNC F inal Result CLINISYWV TB * ALL THYROXINE (T4) FREE (07/03/2024 9:31 AM EDT) FREE T4 0.92 0.76 - 1.46 ng/dL TBH 07/03/2024 9:31 AM EDT 07/03/2024 9:33 AM EDT Narrative CLINISYNC - 07/03/2024 11:19 AM EDT Sukhjinder Trent DO CLINISYNC Final Result Performing Organization Address [facility] Co de Phone Number [facility] * ALL THYROID STIM HORMONE (07/03/2024 9:31 AM EDT) THYROID STIMULATING HORMONE 2.312 0.358 - 3.740 uIU/mL TBH 07/03/2024 9:31 AM EDT 07/03/2024 9:33 AM EDT Narrative CLINISYNC - 07/03/2024 10:28 AM EDT [facility] Trent DO CLINISYNC Final Result Performing Organization Address City/[facility] Co de Phone Number [facility] * ALL PROGESTERONE (07/03/2024 9:31 AM EDT) PROGESTERONE 4.4 . ng/mL TBH Comment: Follicular phase 0.1 - 0.9 Luteal phase 1.8 - 23.9 Ovulation phase 0.1 - 12.0 First trimester 11.0 - 44.3 Second trimester 25.4 - 83.3 Third trimester 58.7 - 214.0 Postmenopausal 0.0 - 0.1 Performed at: [facility] [id number] Health Information Provider: Onofre Hodges PhD, Phone: [phone] 07/03/2024 9:31 AM EDT 07/03/2024 9:33 AM EDT Narrative CLINISYNC - 07/04/2024 4:07 AM EDT Generic External Data Provider CLINISYNC F inal Result Performing Organization Address [facility] de Phone Number [facility] * ALL LUTEINIZING HORMONE (07/03/2024 9:31 AM EDT) LUTEINIZING HORMONE(LH) 3.8 . mIU/mL TBH Comment: Adult Female Range Follicular phase 2.4 - 12.6 Ovulation phase 14.0 - 95.6 Luteal phase 1.0 - 11.4 Postmenopausal 7.7 - 58.5 07/03/2024 9:31 AM EDT 07/03/2024 9:33 AM EDT Narrative CLINISYNC - 07/04/2024 4:07 AM EDT Generic External Data Provider CLINISYNC F inal Result Performing Organization Address [facility] de Phone Number [facility] * ALL FOLLICLE STIMULATING HORMONE (07/03/2024 9:31 AM EDT) FSH 3.7 . mIU/mL TBH Comment: Adult Female Range Follicular phase 3.5 - 12.5 Ovulation phase 4.7 - 21.5 Luteal phase 1.7 - 7.7 Postmenopausal 25.8 - 134.8 07/03/2024 9:31 AM EDT 07/03/2024 9:33 AM EDT Narrative CLINISYNC - 07/04/2024 4:07 AM EDT Generic External Data Provider CLINISYNC F inal Result Performing Organization Address [facility] de Phone Number [facility] * ALL ESTRONE(E1) (07/03/2024 9:31 AM EDT) ESTRADIOL 76.9 . pg/mL TBH Comment: Adult Female Range Follicular phase 12.5 - 166.0 Ovulation phase 85.8 - 498.0 Luteal phase 43.8 - 211.0 Postmenopausal <6.0 - 54.7 1st trimester 215.0 - >4300.0 David ECLIA methodology 07/03/2024 9:31 AM EDT 07/03/2024 9:33 AM EDT Narrative CLINISYNC - 07/04/2024 4:07 AM EDT Generic External Data Provider CLINISYNC F inal Result Performing Organization Address [facility] Co de Phone Number [facility] * ALL DHEA SULFATE (07/03/2024 9:31 AM EDT) DHEA-SULFATE 335.0 84.8 - 378.0 ug/dL TB 07/03/2024 9:31 AM EDT 07/03/2024 9:33 AM EDT Narrative CLINISYNC - 07/04/2024 4:07 AM EDT Generic External Data Provider CLINISYNC F inal Result Performing Organization Address [facility] de Phone Number [facility] * ALL DEHYDROEPIANDROSTERONE (07/03/2024 9:31 AM EDT) DHEA, SERUM 332 31 - 701 ng/dL TB Comment: This test was developed and its performance characteristics determined by [facility]. It has not been cleared or approved by the Food and Drug Administration. Performed at: [address] [id number] Health Information Provider: Tom Navarro MD, Phone: [phone] 07/03/2024 9:3 1 AM EDT 07/03/2024 9:33 AM EDT Narrative CLINISYNC - 07/10/2024 5:09 PM EDT Sukhjinder Trent DO CLINISYNC Final Result Performing Organization Address [facility] Co de Phone Number [facility] * (ABNORMAL) ALL CBC WITH AUTO DIFF (07/03/2024 9:31 AM EDT) TBH WBC 6.7 4.0 - 11.0 10 3/uL TBH TBH RBC 5.06 4.20 - 5.40 10 6/uL TBH TBH HGB 14.6 12.0 - 16.0 g/dL TBH TB HCT 43.6 36.0 - 48.0 % TBH TBH MCV 86.2 81.0 - 99.0 fL TBH TBH MCH 28.9 26.7 - 34.0 pg TBH TBH MCHC 33.5 29.9 - 35.2 g/dL TBH TBH RDW 11.9 11.0 - 15.0 % TBH TBH PLT 284 150 - 450 10 3/uL TBH TBH MPV 10.2 9.5 - 13.5 fL TBH NEUTROPHILS PERCENT AUTO 64.4 43.0 - 75.0 % TBH LYMPHOCYTES PERCENT AUTO 25.6 20.5 - 60.0 % TBH MONOCYTES PERCENT AUTO 6.1 1.7 - 12.0 % TBH TBH EO % 3.0 0.9 - 7.0 % TBH BASOPHILS PERCENT AUTO 0.3 0.2 - 2.0 % TBH IMMATURE GRANULOCYTES PCT AUTO 0.6(H) 0.0 - 0.5 % TBH NEUTROPHILS ABSOLUTE AUTO 4.3 1.4 - 6.5 10 3/uL TBH LYMPHOCYTES ABSOLUTE AUTO 1.7 1.2 - 3.8 10 3/uL TBH MONOCYTES ABSOLUTE AUTO 0.4 0.3 - 0.8 10 3/uL TBH TBH EO # 0.2 0.0 - 0.7 10 3/uL TBH BASOPHILS ABSOLUTE AUTO 0.0 0.0 - 0.1 10 3/uL TBH IMMATURE GRANULOCYTES ABS AUTO 0.04(H) 0.00 - 0.03 10 3/uL TBH 07/03/2024 9:31 AM EDT 07/03/2024 9:33 AM EDT Narrative CLINISYNC - 07/03/2024 9:45 AM EDT us Sukhjinder Trent DO CLINISYNC Final Result [facility] * (ABNORMAL) Pap Smear (07/03/2024 12:00 AM EDT) Swab Cervical swab / Unknown Sukhjinder Newman DO LAB CYTOLOGY ORDERABLES Final Re sult Performing Organization Address [facility]/ZIP Co de Phone Number EXTERNAL LAB * THINPREP PAP (REFL) HPV MRNA E6/E7 [...] LAB Comment: RLP, CT(ASCP) CT screening location: [place] [address]. COMMENT SEE COMMENT [facility] EXTERNAL [...] with historic and current clinical information. 04/29/2022 Francia Rock MANAGER STRATEGIC PARTNERSHIPS [facility] Final R esult Performing Organization Address [facility] Co de Phone Number [facility] from Last 3 Months or Most Recently Relevant to Health Maintenance Insurance [facility] [place] [place] Care Teams Algebra Tutor Relationship Specialty Start Date End Date Riya Killian MD [address] [place] [address] PCP - General Family Medicine 06/15/22 Noemi Gannon PCP - [facility] [place] ICT ACCOUNT MANAGER 02/08/24
--- OUTSIDE RECORDS SUMMARY | 2024-08-17 08:01 | XMS_ITS | Encounter Summary ---
Author Organization [facility] Address [address] [place] [address] Care Team Providers Care Data Science And Iot Manager Name Role Phone Riya Killian MD Primary Care Provider [phone] Noemi Gannon Unavailable Unavailable Encounter Details Date Type Department Care Team (Late Contact Info) Description 08/06/2024 Bamboo flowsheet [facility] [address] [place] [address] Sukhjinder Newman [address] [place], [facility] Social History Tobacco Use Types Packs/Day Years [...] EDT Office Visit [facility] [address] [place] [address] Juliette Klein PA [address] [facility] [address] [place], [place] [phone] 10/26/2024 9:30 AM EDT Office Visit [facility] [address] [place] [address] Riya Killian MD [address] [facility] [place] [address] 01/28/2025 10:20 AM EST Procedure Visit [facility] [address] [place] [phone] Sukhjinder Newman, DO [address] [facility] [place] [address] documented as of this encounter Visit Diagnoses Not on filedocumented in this encounter Care Teams Data Science And Iot Manager Relationship Specialty Start Date End Date Riya Killian MD [address] [facility] [place], [place] [id number] PCP - General Family Medicine 06/15/22 Noemi Gannon PCP - [facility] [place] ZOO KEEPER 02/08/24 documented as of this encounter
--- OUTSIDE RECORDS SUMMARY | 2024-08-17 08:01 | XMS_ITS | Clinical Summary ---
Author Organization [facility] Address [address] [place] [address] Care Team Providers Care Salon Coordinator Name Role Phone Unavailable Primary Care Provider [...] Vaccine (2023-2 5 season) 2023 Flu vaccine (#1) 09/07/2024 Polio vaccine Aged Out No longer elig ible based on patient's age to complete this topic Insurance [facility] MEDICAID
--- OUTSIDE RECORDS SUMMARY | 2024-08-17 08:01 | XMS_ITS | Encounter Summary ---
Author Organization [facility] Address [address] [facility] [place] [address] Care Team Providers Care Investment Underwriter Name Role Phone Riya Killian MD Primary Care Provider [phone] Noemi Gannon Unavailable Unavailable Encounter Details Date Type Department Care Team (Late Contact Info) Description 07/25/2024 Abstract [facility] [address] [facility] [place] [address] Sukhjinder Newman [address] [place], [facility]11 Social History Tobacco Use Types Packs/Day [...] EDT Office Visit [facility] [address] [facility] [place] [address] Juliette Klein PA [address] [facility] [place] [address] 10/26/2024 9:30 AM EDT Office Visit [facility] [address] [facility] [place] [phone] Riya Killian MD [address] [facility] [address] [place], [place] [phone] 01/28/2025 10:20 AM EST Procedure Visit [facility] [address] [facility] [place] [address] Sukhjinder Newman, DO [address] [facility] [place] [address] documented as of this encounter Visit Diagnoses Not on filedocumented in this encounter Care Teams Investment Underwriter Relationship Specialty Start Date End Date Riya Killian MD [address] [facility] [place], [place] [phone] PCP - General Family Medicine 06/15/22 Noemi Gannon PCP - [facility] [place] FOUNDATION DRILL OPERATOR 02/08/24 documented as of this encounter
--- OUTSIDE RECORDS SUMMARY | 2024-08-17 08:01 | XMS_ITS | Patient Health Record ---
Author Organization [facility] vices Address [address] [place], [place] [id number] Care Team Providers Care Material Reprocessing Associate Name Role Phone Marisol Phillips Unavailable [phone] Reason For Referral No Information Immunizations Vaccine Route Administration Date Status Comme nts *Tdap (Adacel)-VFC IM Intramuscular 07/24/2019 Administered Status:Complete ,Reason:Given or N/A Problems Problem Type SNOMED Code ICD Code Onset Dates Problem Status W/U Status Risk Notes Problem Obesity (380161138) Class 2 obesity in adult (E66.9) Active confirmed Description:Cl ass 2 Obesity in Adult (BMI 35.0-39.9) Problem Irregular periods (12203541) Irregular periods (N92.6) Active confirmed Comment:1. R TC 2-3months BC pill recheck, Problem Acute sinusitis (04520123) Sinusitis, acute (J01.90) Active confirmed Comment:More than [...] treat for 7 days., Problem Depression screening (699763009) Screening for depression (Z13.31) Active confirmed Description:De pression screen Problem Shingles (5989981) Shingles (B02.9) Active confirmed Problem Screening for malignant neoplasm of cervix (577112768) Cervical cancer screening (Z12.4) Active confirmed Problem Supervision of low-risk (Z34.90) Active confirmed Comment:1. RASHAWN from Dr. Vincent @ 31wks. 2. Dated by LMP=T1 US 3. Tdap given. Passed 1h GTT. 4. PPBCM: desires sterilization @ 6wks PP. Medicaid papers signed. 5. eIOL scheduled for 09/19 @ 6am. COVID testing ordered prior. Pt informed., Problem Contraception care education (681239785) General counseling and advice for contraceptive management (Z30.09) Active confirmed Comment:1. Desires permanent sterilization via [facility] bilateral salpingectomie s. 2. Hospital consent signed today. Medicaid consent signed 07/24/2019 3. Has pre-op COVID testing etc scheduled., Problem Heavy menstrual bleeding (673956636) Heavy menstrual bleeding (N92.0) Active confirmed Comment:1. Continue with cOCP's. Has refills. 2. RTC annual/PRN prior, Problem Weight gain (675373476) Weight gain (R63.5) Active confirmed Problem High risk sexual behavior (114451622) High risk sexual behavior (Z72.51) Active confirmed Problem care (639032797) Encounter for visit (Z39.2) Active confirmed Comment:1. Doing well PP. Baby thriving 2. Bottle feeding 3. EPPDS 0/30- good support at home 4. PPBCM: depo shot in hospital. Planning on tubal, schedule for Dec., Problem Human papilloma virus screening (731148602) Screening for HPV (human papillomavirus) (Z11.51) Active confirmed Problem Anxiety (22955277) Situational anxiety (F41.8) Active confirmed Comment:will do Inderal and Hydroxyzine as needed, Problem Leukocytes in urine (008869241) Leukocytes in urine (R82.998) Active confirmed Plan Of Treatment No Information Insurance Providers Payer Name Payer Address Payer Phone Subscriber Number Group Number Insured Name Patient Relationship to Insured Coverage Start Date Coverage End Date zzDAnthem [employer] [address] [place] [address] [id number] Sylvia López Self - patient is the insured 3 D[employer]icaid [employer] [place] [address] [place], [place] [id number] Sylvia López Self - patient is the insured 3 Medical (General) History Surgical History Surgery Date(Month/Year) Tubal Ligation, ProblemStatus: Active, None, ProblemStatus: Inactive, 2019-01-07 1
[2024-08-17 08:12] LABS: Hematocrit 40.8 % (36.0-48.0); Hemoglobin 14.0 g/dL (12.0-16.0); Immature Granulocytes Abs Auto 0.02 10^3/uL (0.00-0.03); Immature Granulocytes Pct Auto 0.3 % (0.0-0.5); Lymphocytes Absolute Auto 1.8 10^3/uL (1.2-3.8); Mean Corpuscular HGB Conc 34.3 g/dL (29.9-35.2); Mean Corpuscular Hemoglobin 29.7 pg (26.7-34.0); Mean Corpuscular Volume 86.6 fL (81.0-99.0); Platelet Count 289 10^3/uL (150-450); Red Blood Count 4.71 10^6/uL (4.20-5.40); White Blood Count 6.5 10^3/uL (4.0-11.0)
--- OUTSIDE RECORDS SUMMARY | 2024-08-17 08:14 | XMS_ITS | CCD ---
Author Organization [facility] Care Team Providers Care It Training Specialist Name Role Phone JAIDEN TOTH Admitting Unavailable [...] Provider Unalester ilable BURAK Sutton Attending Provider [phone] Riya Hinojosa MD Primary Care Provider Noemi Gannon Unavailable Unavailable Sukhjinder Newman Attending Unavailable Trent, Sukhjinder Admitting Unavailable Cecilia Sutton Attending Unavailable Cecilia Sutton Admitting Unavailable NO FAMILY, PHYSICIAN Primary Care Unavailable SUKHJINDER NEWMAN Attending Unavailable SUKHJINDER NEWMAN Attending Unavailable SHEFALI CALVILLO Attending Unavailable RIYA HINOJOSA Attending Unavailable SUKHJINDER NEWMAN Attending Unavailable SUKHJINDER NEWMAN Attending Unavailable Allergies Allergy Classification Reported Allergen(s) Allergy Type Date of Onset Reaction(s) Facility (2 sources) Penicillins; Translations: [PENICILLINS] Drug allergy (disorder) 09-16-19 13 [facility] Repository (2 sources) Penicillin G Drug Allergy [facility] Other (17 sources) Vancomycin; Translations: [VANCOMYCIN] Drug Allergy 01-25-20 [facility] Repository (16 sources) Penicillins Drug Intolerance 12-01-19 Hives, [facility] (1 source) Penicillin Drug Allergy 01-28-20 [facility] Repository Medications Current Medications Medication Drug Class(es) Dates Sig (Normalized) Sig (Original) [id number] 200 actuat albuterol 0.09 mg/actuat metered dose [...] (Therapy completed) escitalopram 5 mg oral tablet (5 sources) Serotonin Reuptake Inhibitor Start: 07-19-2024 End: [...] hydrochloride 500 mg extended release oral tablet (14 sources) Biguanide Start: 07-19-2024 take 2 tablets [...] [Acute bronchitis, unspecified] 12-01-2023 Episodic Administrative/social admission (19 sources) Encounter for pre-employment examination; Translations: [Patient encounter status] Onset: 04-05-2022 Episodic Anxiety disorders (17 sources) Anxiety disorder, unspecified; Translations: [Anxiety] Onset: 10-30-2018 12-01-2023 Chronic Asthma (2 sources) Acute exacerbation of asthma; Translations: [Acute asthma exacerbation] Chronic Cancer of cervix (3 sources) Low grade squamous intraepithelial lesion on cervical Papanicolaou smear; Translations: [Low grade squamous intraepithelial lesion on cytologic smear of cervix (LGSIL)] 07-24-2024 Episodic Diabetes mellitus without complication (2 sources) Prediabetes; Translations: [Prediabetes] 07-19-2024 Episodic Headache; including migraine (16 sources) Refractory migraine with aura; Translations: [Migraine with aura, intractable, without status migrainosus] Onset: 12-01-2023 12-01-2023 Chronic Influenza (1 source) Influenza due to unidentified influenza virus with other respiratory manifestations; Translations: [FLU D/T UNIDENT FLU VIR RESP MANIF] Onset: 03-22-2019 Episodic Menstrual disorders (20 sources) Secondary amenorrhea; Translations: [Menorrhagia] Onset: 03-13-2019 12-01-2023 Chronic Mood disorders (18 sources) Depressive disorder; Translations: [Depression] Onset: 12-01-2023 [...] TRI] Onset: 04-26-2019 Episodic Other endocrine disorders (14 sources) Polycystic ovary syndrome; Translations: [Polycystic ovarian syndrome] Onset: 06-07-2024 06-07-2024 Chronic Other female genital disorders (1 source) Other specified noninflammatory disorders of vagina; Translations: [OTH SPEC NONINFLAMMATORY D/O VAGINA] Onset: 04-26-2019 Episodic Other lower respiratory disease (2 sources) Cough; Translations: [Acute cough] 12-01-2023 Episodic Other nutritional; endocrine; and metabolic disorders (16 sources) Obesity; Translations: [Obesity, unspecified] Onset: 12-01-2023 12-01-2023 Chronic Other and delivery including normal (6 sources) Encounter for supervision of normal , unspecified, second trimester; Translations: [Encounter for supervision of normal , unspecified, first trimester] Onset: 10-30-2018 Episodic Other upper respiratory disease (16 sources) Allergic rhinitis due to pollen; Translations: [...] 09-07-2018 Episodic Genitourinary symptoms and ill-defined conditions (18 sources) Dysuria; Translations: [Hematuria, unspecified] Onset: 04-29-2021 [...] PUERPER] Onset: 09-02-2018 Episodic Other complications of (16 sources) High risk ; Translations: [Supervision of other high risk pregnancies, second trimester] Onset: 06-23-2018 12-01-2023 Episodic Other nutritional; endocrine; and metabolic disorders (16 sources) Weight increased; Translations: [Abnormal weight gain] Onset: 12-01-2023 12-01-2023 Episodic Other screening for suspected conditions (not mental disorders or infectious disease) (20 sources) Encounter for screening for malignant neoplasm of cervix; Translations: [Cancer cervix screening status] Onset: 04-25-2019 12-01-2023 Episodic Other upper respiratory infections (18 sources) Acute pharyngitis, unspecified; Translations: [Streptococcal pharyngitis] Onset: 12-01-2023 Episodic Residual codes; unclassified (16 sources) High risk sexual behavior; Translations: [High risk heterosexual behavior] Onset: 12-01-2023 12-01-2023 Episodic Unclassified (1 source) Contact with and (suspected) exposure to covid-19 Z20.822 Urinary tract infections (1 source) Urinary tract infection, site not specified Onset: 04-29-2021 Resolved: 04-29-2021 Episodic Viral infection (16 sources) Herpes zoster; Translations: [Zoster without complications] Onset: 12-01-2023 12-01-2023 Episodic Results Test Name Value Interpretation Reference Range Facility Colposcopyon 07-24-2024 Comfort Lopez LPN 07/24/2024 2:05 PM Colposcopy [...] paperwork completed: yes Educational handouts given: no [facility] HCG ( test) Ql (U)o n 07-24-2024 Interpretation and review of laboratory results Normal [facility] Preg Test, Ur Negative Negative [facility] Víctor 07-24-2024 L -- ---- Specimen: [id number] Received: 07/25/24 Status: FINA Navarrete Num: [id number] Spec Type: Surgical Subm Dr: Sukhjinder Newman Tissues: A Endocervix - Curettings (ENDOCERVIX) Procedures: HE/2, Gross/Micro L4, CINtec p16, IHC First AB ---- Age/ Patient Sex Location Account Attending Physician ---- Ann-Marie López 34/F LABELL [id number] Sukhjinder Newman ---- SPEC NUM: [id number] RECD: 07/25/24 STATUS: FINA MELISSABashir NUM: [id number] STACI: 07/24/24-[address]: Sukhjinder Newman ENTERED: 07/25/24 [facility] DR: Catrina Dickinson SPEC TYPE: Surgical DEPT: LORENZO ZAMORA ENTERED BY: [id number] RECV BY: [id number] ORDERED: HE/2, Gross/Micro L4, CINtec p16, IHC First AB ORDERED: HE/2, Gross/Micro L4, CINtec p16, IHC First AB Pathological Diagnosis Endocervical curettage: ? High-grade squamous intraepithelial lesion (NARCISA-3) involving metaplastic squamous epithelium overlying endocervical mucosa, see comment Comment: Immunohistochemical stain for p16 is performed. It shows full thickness positivity in the atypical metaplastic squamous epithelium in keeping with the above interpretation Clinical Information Low-grade squamous intraepithelial lesion, human papilloma virus positive Gross Description Part A is received in formalin labeled with the patients name, date of , and ECC is a pale petersen mucoid material, admixed with feathery ramirez-pink tissue bits, 0.5 x 0.2 x 0.1 cm in aggregate. The specimen is filtered and entirely submitted in a single cassette. (1, ns, [id number]) MONIQUE ---- Specimen: [id number] Received: 07/25/24 Status: FINA Blackbashir Num: [id number] Spec Type: Surgical Subm Dr: Sukhjinder Newman Tissues: A Endocervix - Curettings (ENDOCERVIX) Procedures: HE/2, Gross/Micro L4, CINtec p16, IHC First AB ---- Patient: Ann-Marie López [id number] (Continued) ---- Specimen: [id number] Received: 07/25/24 (Continued) Signed (signature on file) Karlos Iqbal MD 07/27/24 1245 ---- Specimen: [id number] Received: 07/25/24 Status: FINA Landon Num: [id number] Spec Type: Surgical Subm Dr: Sukhjinder Newman Tissues: A Endocervix - Curettings (ENDOCERVIX) Procedures: HE/2, Gross/Micro L4, CINtec p16, IHC First AB ---- Patient: Ann-Marie López [id number] (Continued) ---- Specimen: [id number] Received: 07/25/24 (Continued) CPT Codes 13409, 10470 ---- ---- Specimen: [id number] Received: 07/25/24 Status: FINA Landon Num: [id number] Spec Type: Surgical Subm Dr: Sukhjinder Newman Tissues: A Endocervix - Curettings (ENDOCERVIX) Procedures: HE/2, Gross/Micro L4, CINtec p16, IHC First AB ---- Patient: Ann-Marie López [id number] (Continued) ---- Signed (signature on file) Karlos Iqbal MD 07/27/24 7079 Normal [facility] ALL CBC WITH AUTO DIFFon BASOPHILS ABSOLUTE AUTO 0 N [facility] Basophils/100 WBC (Bld) 0.3 % 0.2 - 2.0 % [facility] Eosinophils/100 WBC (Bld) 3 % 0.9 - 7.0 % [facility] Erythrocyte distribution width (RBC) [Ratio] 11.9 % 11.0 - 15.0 % [facility] Hematocrit (Bld) [Volume fraction] 43.6 % 36.0 - 48.0 % [facility] Hemoglobin (Bld) [Mass/Vol] 14.6 g/dL 12.0 - 16.0 g/dL [facility] IMMATURE GRANULOCYTES ABS AUTO 0.04 High [facility] Immature granulocytes/100 WBC (Bld) 0.6 % High 0.0 - 0.5 % [facility] Interpretation and review of laboratory results Abnormal [facility] LYMPHOCYTES ABSOLUTE AUTO 1.7 [facility] Lymphocytes/100 WBC (Bld) 25.6 % 20.5 - 60.0 % [facility] MCH (RBC) [Entitic mass] 28.9 pg 26.7 - 34.0 pg [facility] MCHC (RBC) [Mass/Vol] 33.5 g/dL 29.9 - 35.2 g/dL [facility] MCV (RBC) [Entitic vol] 86.2 fL 81.0 - 99.0 fL [facility] MONOCYTES ABSOLUTE AUTO 0.4 N [facility] Monocytes/100 WBC (Bld) 6.1 % 1.7 - 12.0 % [facility] NEUTROPHILS ABSOLUTE AUTO 4.3 [facility] Neutrophils/100 WBC (Bld) 64.4 % 43.0 - 75.0 % [facility] Platelet mean volume (Bld) [Entitic vol] 10.2 fL 9.5 - 13.5 fL [facility] EO # 0.2 [facility] PLT 284 [facility] RBC 5.06 [facility] WBC 6.7 [facility] Urinalysis macro (dipstick) panel (U)on 07-03-2024 Bilirubin, UA Negative Negative - 4(70) +++ mg/dL [facility] Blood, UA Positive Negative - 50 Sonny/mcL [facility] Comment on above: trace-intact Clarity, UA Clear [facility] Color, UA Yellow [facility] Glucose, UA Negative Negative - 2000(110) ++++ mg/dL [facility] Interpretation and review of laboratory results Abnormal [facility] Ketones, UA Negative Negative - 160(16) ++++ mg/dL [facility] Leukocytes, UA Positive Negative - 500+++ Venecia/mcL [facility] Comment on above: small Nitrite, UA Negative Negative - Positive [facility] pH, UA 5.5 5 - 9 [facility] Protein, UA Positive Negative - 2000(20) ++++ mg/dL [facility] Comment on above: 30 Spec Grav, UA 1.03 1 - 1.03 [facility] Urobilinogen, UA 0.2 0.2 - 12 mg/dL [facility] - Microbiology an d Antimicrobial susceptibilityon 12-01-2023 SARS-CoV-2 (COVID-19) RNA TELLO+probe Ql (Unsp spec) - [facility] No Panel Informationon 11-30 FLU A - [facility] FLU B - [facility] Interpretation and review of laboratory results Normal [facility] Basic Metabolic Tracy w/Rfx A1 Con 09-09-2023 GFR/1.73 sq M.predicted MDRD (S/P/Bld) [Vol rate/Area] mL/min/{1.73_m2} Normal [facility] Comment on above: Performed By: #### E MP BMP, EBS LIPID, EBS A1C #### [facility] [address] [id number] [place] Calcium [Mass/volume] in Ser um or PlasmaOrdered By: Cecilia Sutton on 09-09-2023 Calcium [Mass/Vol] 9.7 mg/dL Normal 8.6-10.3 [facility] Comment on above: Performed By: #### E MP BMP, EBS LIPID, EBS A1C #### [facility] [address] [phone] [place] Carbon dioxide, total [Moles /volume] in Serum or PlasmaOrdered By: Cecilia Sutton on 09-09-2023 CO2 [Moles/Vol] 22.0 mmol/L Normal 21.0-31.0 [facility] Comment on above: Performed By: #### E MP BMP, EBS LIPID, EBS A1C #### [facility] [address] [phone] [place] Chloride [Moles/volume] in S jessie or PlasmaOrdered By: Cecilia Sutton on 09-09-2023 Chloride [Moles/Vol] 105 mmol/L Normal 98-107 [facility] Comment on above: Performed By: #### E MENDEZ BMP, EBS LIPID, EBS A1C #### [facility] [address] [place] [address] [facility] Cholesterol [Mass/volume] in Serum or PlasmaOrdered By: Cecilia Sutton on 09-09-2023 Cholesterol [Mass/Vol] 227 mg/dL High 140-200 [facility] Comment on above: Chol less than 200 m g/dl low riskChol 201-239 mg/dl borderline riskChol 240 mg/dl and greater high risk Result Comment: Chol less than 200 mg/dl low risk Chol 201-239 mg/dl borderline risk Chol 240 mg/dl and greater high risk Performed By: #### E MENDEZ BMP, EBS LIPID, EBS A1C #### [facility] [address] [phone] [facility] Cholesterol in LDL Calc [Mas s/Vol]Ordered By: Cecilia Sutton on 09-09-2023 Cholesterol in LDL [Mass/Vol] 139 mg/dL High 0-100 [facility] Comment on above: LDL ATP III CLASSIFI CATIONLDL less than 100 mg/dL OptimalLDL 100-129 mg/dL Near or above optimalLDL 130-159 mg/dL Borderline highLDL 160-189 mg/dL HighLDL greater than 189 mg/dL Very high Cholesterol in VLDL Calc [Ma ss/Vol]Ordered By: Cecilia Sutton on 09-09-2023 Cholesterol in VLDL [Mass/Vol] 53 mg/dL [facility] Creatinine [Mass/volume] in Serum or PlasmaOrdered By: Cecilia Sutton on 09-09-2023 Creatinine [Mass/Vol] 0.46 mg/dL Low 0.60-1.20 [facility] Comment on above: Performed By: #### E MENDEZ BMP, EBS LIPID, EBS A1C #### [facility] [address] [place] [address] [facility] EBS A1C with Estimated Ave G guyn 09-09-2023 Glucose [Mass/Vol] 134 mg/dL Normal [facility] Comment on above: Result Comment: PERF ORMED BY: [place] [address] PATHOLOGIST INSTRUCTOR PRIVATE JU BAR M.D. Performed By: #### E MP BMP, EBS LIPID, EBS A1C #### [facility] [address] HbA1c (Bld) [Mass fraction] 6.3 % High 4.3-5.6 [facility] Comment on above: Result Comment: Incr eased risk for diabetes: 5.7 - 6.4 diabetes: >6.4 glycemic control for adults with diabetes: <7.0 Performed By: #### E MP BMP, EBS LIPID, EBS A1C #### [facility] [address] [place] [address] [place] Glucose [Mass/volume] in Ser um or PlasmaOrdered By: Cecilia Sutton on 09-09-2023 Glucose [Mass/Vol] 104 mg/dL High 70-100 [facility] Comment on above: ADA recommended refe rence range Result Comment: ADA recommended reference range Performed By: #### E MP BMP, EBS LIPID, EBS A1C #### [address] Lipid Profileon 09-09-2023 LDL Cholesterol,Calculated 139 mg/dL High 0-100 [facility] Comment on above: Result Comment: LDL ATP III CLASSIFICATION LDL less than 100 mg/dL Optimal LDL 100-129 mg/dL Near or above optimal LDL 130-159 mg/dL Borderline high LDL 160-189 mg/dL High LDL greater than 189 mg/dL Very high Performed By: #### E MP BMP, EBS LIPID, EBS A1C #### [facility] [address] [place] [address] [place] Triglyceride w/Reflex 266 mg/dL High 0-149 [facility] Comment on above: Result Comment: TRIG ATP III CLASSIFICATION TRIG less than 150 mg/dL Normal TRIG 150-199 mg/dL Borderline high TRIG 200-500 mg/dL High TRIG greater than 500 mg/dL Very high Standard traceable to the Center for Disease Conrtrol and Prevention (CDC) test method. Performed By: #### E MP BMP, EBS LIPID, EBS A1C #### [facility] [address] VLDL CHOLESTEROL 53 mg/dL Normal [facility] Comment on above: Performed By: #### E MP BMP, EBS LIPID, EBS A1C #### [facility] [address] No Panel InformationOrdered By: Cecilia Sutton on 09-09-2023 Estimated GFR (CKD-EPI) > 60.0 mL/Min [facility] Creatinine Clearance (Chem N/A [facility] Potassium [Moles/volume] in Serum or PlasmaOrdered By: Cecilia Sutton on 09-09-2023 Potassium [Moles/Vol] 4.4 mmol/L Normal 3.5-5.1 [facility] Comment on above: Hemolysis is present at a level that could interfere with the result.Contact lab if redraw is required Result Comment: Hemo lysis is present at a level that could interfere with the result. Contact lab if redraw is required Performed By: #### E MP BMP, EBS LIPID, EBS A1C #### [address] Serum or plasma anion gap de terminationOrdered By: Cecilia Sutton on 09-09-2023 Anion gap [Moles/Vol] 12.4 mmol/L Normal 6.0-15.0 [facility] Comment on above: Performed By: #### E MP BMP, EBS LIPID, EBS A1C #### [facility] [address] [place] [address] Serum or plasma high density lipoprotein (HDL) cholesterol measurementOrdered By: Cecilia Sutton on 09-09-2023 Cholesterol in HDL [Mass/Vol] 35 mg/dL Normal 23-92 [facility] Comment on above: HDL CHOL ATP-III CLA SSIFICATION Cardiovascular RiskHDL > or equal to 60 mg/dL LOWHDL < 40 mg/dL HIGH Result Comment: HDL CHOL ATP-III CLASSIFICATION Cardiovascular Risk HDL > or equal to 60 mg/dL LOW HDL < 40 mg/dL HIGH Performed By: #### E MP BMP, EBS LIPID, EBS A1C #### [facility] [address] [place] [address] Serum or plasma total choles terol/high density lipoprotein (HDL) cholesterol mass ratOrdered By: Cecilia Sutton on 09-09-2023 Cholesterol.total/Rebecca sterol in HDL [Mass ratio] 6.5 {ratio} Normal <5.0 [facility] Comment on above: Result Comment: PERF ORMED BY: [place] [address] PATHOLOGIST INSTRUCTOR PRIVATE JU BAR M.D. Performed By: #### E MP BMP, EBS LIPID, EBS A1C #### [address] Sodium [Moles/volume] in Ser um or PlasmaOrdered By: Cecilia Sutton on 09-09-2023 Sodium [Moles/Vol] 135 mmol/L Low 136-145 [facility] Comment on above: Performed By: #### E MP BMP, EBS LIPID, EBS A1C #### [address] Triglyceride [Mass/volume] i n Serum or PlasmaOrdered By: Cecilia Sutton on 09-09-2023 Triglyceride [Mass/Vol] 266 mg/dL High 0-149 [facility] Comment on above: TRIG ATP III CLASSIF ICATIONTRIG less than 150 mg/dL NormalTRIG 150-199 mg/dL Borderline highTRIG 200-500 mg/dL High TRIG greater than 500 mg/dL Very highStandard traceable to the Center for Disease Conrtrol and Prevention (CDC) test method. Urea nitrogen [Mass/volume] in Serum or PlasmaOrdered By: Cecilia Sutton on 09-09-2023 Urea nitrogen [Mass/Vol] 17 mg/dL Normal 7-25 [facility] Comment on above: Performed By: #### E MP BMP, EBS LIPID, EBS A1C #### [address] ALT No additional P-5'-P [Ca talytic activity/Vol]on 08-12-2023 ALT [Catalytic activity/Vol] 17 U/L Normal 0-31 [facility] Comment on above: Performed By: #### 1 744-2, 5193-8, 26129-6, 19461-7 #### [facility] ([id number]) [address], [address] [place] [address] HBV surface Ab IA Qnon 08-11 Anti HBs quant. 274.99 mIU/mL Normal [facility] Comment on above: Result Comment: Vacc inated: >=12mIU/mL, Positive (Immune) Unvaccinated: <8mIU/mL, Negative (Not Immune) 8-11.99 mIU/mL: Indeterminate, (Considered Not Immune) Performed By: #### 1 744-2, 5193-8, 31356-6, 30967-9 #### [facility] ([id number]) [address], [address] [place] [address] HCV Ab IA Qlon 08-12-2023 ANTI HCV W/PCR REFLX Non-Reactive Normal NRCT [facility] Comment on above: Result Comment: If recent infection suspected, recommend repeat testing (>2 months). Tibjil-oe-gdgchl ratio is <0.80. Performed By: #### 1 744-2, 5193-8, 95344-9, 90041-4 #### [facility] ([id number]) [address], [address] [place] [address] HIV 1+2 Ab+HIV1 p24 Ag IA Ql on 08-12-2023 HIV 1 and 2 Ab/Ag Screen Non-Reactive Normal NRCT [facility] Comment on above: Result Comment: [...] diagnoses. Performed By: #### 1 744-2, 5193-8, 12499-0, 99109-8 #### [facility] ([id number]) [address], [address] [place] [address] Cytology Cervical or vaginal smear or scraping studyOrdered By: Rosa Elena Lee on 04-29-2022 [facility] VZ Immunityon 04-07-2022 VZ Immunity 2.16 Normal >1.09 [facility] Comment on above: Result Comment: Interpretation: IMMUNE Reference Range: <0.91 Not Immune 0.91-1.09 Equivocal >1.09 Immune Performed By: #### V ZI #### [facility] [address] [place], [place] [address] Global Marketing Manager: Matias Jones MD COVID/FLU RT-PCRon SARS-CoV-2 (COVID-19) RNA TELLO+probe Ql (Unsp spec) Negative [facility] Other COVID/FLU RT-PCR Negative [facility] Other Quick Strepon 01-27-2022 S. pyogenes Org specific cx Ql (Throat) Positive [facility] Other Quick Strep [facility] Other Urinalysis - AUTOMATEDon Appearance (U) clear [facility] Other Bilirubin Ql (U) Negative [facility] Other Color (U) yellow [facility] Other Glucose Ql (U) Negative [facility] Other Hemoglobin Ql (U) trace [employer] Other Ketones Ql (U) Negative [facility] Other Leukocyte esterase Test strip Ql (U) small [facility] Other Nitrite Ql (U) Negative [facility] Other pH (U) 7.5 [pH] [facility] Other Protein Ql (U) Negative [facility] Other Specific gravity (U) [Rel density] 1.025 [facility] Other Urobilinogen (U) [Mass/Vol] 0.2 mg/dL [facility] Other Urinalysis - AUTOMATED No rt code-laboration Other US PREG CERVICAL LENGTHon US PREG CERVICAL LENGTH PROCEDURE: US OR EG ANATOMY SINGLE, US PREG CERVICAL LENGTH, [...] by: APOLONIA BARNETT Date: 2019-06-01 16:18 Normal [facility] PAP ACOG PANEL 3: 21 to 29on 05-01-2019 Age Gdln ACOG Testing Normal [facility] Comment on above: Performed By: #### U WILLIAM UMICRO #### [facility] [address] [address] Kellen Moyer Chlamydia, Nuc. Acid Amp Negative Normal Negative [facility] Comment on above: Result Comment: Perf ormed at: =G Performed By: #### U WILLIAM UMICRO #### [facility] [address] [address] Kellen Moyer DIAGNOSIS: Comment Abnormal [facility] Comment on above: Result Comment: EPIT HELIAL CELL ABNORMALITY. ATYPICAL SQUAMOUS CELLS OF UNDETERMINED SIGNIFICANCE (ASC-US). Performed at: WB Performed By: #### U WILLIAM UMICRO #### [facility] [address] [address] Kellen Moyer Electronically signed by: Comment Normal [facility] Comment on above: Result Comment: Barron Liu MD, Pathologist Performed at: WB Performed By: #### U ACSSARIKA UMICRO #### [facility] [address] [address] Kellen Moyer Gonococcus, Nuc. Acid Amp Negative Normal Negative [facility] Comment on above: Result Comment: Perf ormed at: =G Performed By: #### U ACSSARIKA UMICRO #### [facility] [address] [place] [address] Kellen Moyer HPV Aptima Negative Normal Negative [facility] Comment on above: Result Comment: This nucleic acid amplification test detects fourteen high-risk HPV types (16,18,31,33,35,39,45,51,52,56,58,59,66,68) without differentiation. Performed By: #### U ALONA THOMASRO #### [facility] [address] [place] [address] Kellen Moyer Methodology: Comment Normal [facility] Comment on above: Result Comment: This liquid based ThinPrep(R) pap test was screened with the use of an image guided system. Performed at: WB Performed By: #### U ALONA THOMASRO #### [facility] [address] [place] [address] Kellen Moyer Note: Comment Normal [facility] Comment on above: Result Comment: The Pap smear is a screening test designed to aid in the detection of premalignant and malignant conditions of the uterine cervix. It is not a diagnostic procedure and should not be used as the sole means of detecting cervical cancer. Both false-positive and false-negative reports do occur. . Performed at: WB Performed By: #### U CHLOE THOMAS #### [facility] [address] [place] [address] Kellen Moyer Pathologist Provided ICD10 Comment Normal [facility] Comment on above: Result Comment: R87. [id number] Performed at: WB Performed By: #### U ALONA THOMASRO #### [facility] [address] [place] [address] Kellen Moyer Performed by: Comment Normal [facility] Comment on above: Result Comment: Nieves Cameron, Middle School Band Teacher (ASCP) Performed at: WB Performed By: #### U ALONA THOMASRO #### [facility] [address] [place] [address] Kellen Moyer Reflex Criteria: Comment Normal [facility] Comment on above: Result Comment: See below for HPV testing results. . Performed at: WB Performed By: #### ALONA BOTELLORO #### [facility] [address] [address] Kellenrachel Moyer Specimen adequacy: Comment Normal [facility] Comment on above: Result Comment: Sati sfactory for evaluation. Endocervical and/or squamous metaplastic cells (endocervical component) are present. Areas of partially obscuring inflammatory exudate are present. Performed at: WB Performed By: #### U ACSSARIKA, UMICRO #### [facility] [address] [address] Kellen Comfort . . Normal [facility] Comment on above: Result Comment: Perf ormed at: WB Performed By: #### U ACSSARIKA UMICRO #### [facility] [address] [place] [address] Kellenrachel Chanden VAGINITIS/VAGINOSIS DNA PROB [place] 04-27-2019 Kelsey species Negative Normal Negative [facility] Comment on above: Performed By: #### U ACSSARIKA UMICRO #### [facility] [address] [place] [address] Kellenrachel Moyer Gardnerella vaginalis Positive Abnormal Negative [facility] Comment on above: Performed By: #### U ACSSARIKA, UMICRO #### [facility] [address] [address] Kellen Comfort Trichomonas vaginalis Negative Normal Negative [facility] Comment on above: Performed By: #### U ACSSARIKA UMICRO #### [facility] [address] [address] Kellen Moyer CULTURE URINEon 03-21-2019 CULTURE URINE Culture Observations : Moderate growth of mixed genital juan.No potential pathogens seen. Normal [facility] Comment on above: Performed By: #### U ACSSARIKA, UMICRO #### [facility] [address] [id number] Kellen Comfort ER URINE PROFILEon 0 Bilirubin [Mass/Vol] Negative Normal NEGATIVE [facility] Comment on above: Performed By: #### U ACSSARIKA, UMICRO #### [facility] [address] [address] Kellen Comfort BLOOD Negative Normal NEGATIVE [facility] Comment on above: Performed By: #### U RENE THOMASICRO #### [facility] [address] [address] Kellen Comfort Clarity (U) CLEAR Normal [facility] Comment on above: Performed By: #### U WILLIAM UMICRO #### [facility] [address] [address] Kellen Comfort Color (U) LT. YELLOW Normal YELLOW [facility] Comment on above: Performed By: #### U RENE THOMASICRO #### [facility] [address] [place] [address] Kellen Comfort ERUAHD A micrscopic examination will be performed if indicated. Normal [facility] Comment on above: Performed By: #### U WILLIAM UMICRO #### [facility] [address] [place] [address] Kellen Comfort Glucose [Mass/Vol] Negative Normal NEGATIVE [facility] Comment on above: Performed By: #### U RENE THOMASICRO #### [facility] [address] [place] [address] Kellen Comfort Ketones Ql (U) TRACE Normal NEGATIVE [facility] Comment on above: Performed By: #### U RENE THOMASICRO #### [facility] [address] [place] [address] Kellen Comfort Nitrite Ql (U) Negative Normal NEGATIVE [facility] Comment on above: Performed By: #### U RENE THOMASICRO #### [facility] [address] [place] [address] Kellen Comfort pH (Bld) 6.0 Normal 5-9 [facility] Comment on above: Performed By: #### U RENE THOMASICRO #### [facility] [address] [place] [address] Kellen Comfort Protein (U) [Mass/Vol] Negative Normal [facility] Comment on above: Performed By: #### U RENE THOMASICRO #### [facility] [address] [place] [address] Kellen Comfort SPEC GRAVITY >=1.030 Normal 1.005-<=1.0 25 [facility] Comment on above: Performed By: #### U ACSSARIKA UMICRO #### [facility] [address] [place] [address] Kellenrachel Moyer UR MICRO IND INDICATED Normal [facility] Comment on above: Performed By: #### U ACSSARIKA UMICRO #### [facility] [address] [place] [address] Kellenrachel Moyer Urobilinogen Qn (U) 0.2 EU/dl Normal [facility] Comment on above: Performed By: #### U ACSSARIKA UMICRO #### [facility] [address] [place] [address] Kellenrachel Moyer WBC (Bld) [#/Vol] SMALL Normal NEGATIVE [facility] Comment on above: Performed By: #### U ACSSARIKA UMICRO #### [facility] [address] [place] [address] Kellen Comfort URINE MICROSCOPIC ONLYon AMORPHOUS CRYSTALS FEW Normal [facility] Comment on above: Performed By: #### U ACSSARIKA UMICRO #### [facility] [address] [place] [address] Kellen Comfort Bacteria LM.HPF (Urine sed) [#/Area] MODERATE Normal NONE SEEN [facility] Comment on above: Performed By: #### U ACSSARIKA UMICRO #### [facility] [address] [place] [address] Kellen Comfort CAST NONE SEEN Normal NONE SEEN [facility] Comment on above: Performed By: #### U ACSSARIKA, UMICRO #### [facility] [address] [place] [address] Kellen Comfort Crystals LM Nom (Urine sed) SEEN Normal NONE SEEN [facility] Comment on above: Performed By: #### U ACSSARIKA, UMICRO #### [facility] [address] [place] [address] Kellen Comfort CULTURE INDICATED Normal [facility] Comment on above: Performed By: #### U ACSIND, UMICRO #### [facility] [address] [place], [place] [address] Kellen Comfort Epithelial cells LM.HPF (Urine sed) [#/Area] MODERATE Normal [facility] Comment on above: Performed By: #### U WILLIAM UMICRO #### [facility] [address] [place], [place] [address] Kellen Comfort MUCOUS TRACE Normal NONE SEEN [facility] Comment on above: Performed By: #### U WILLIAM UMICRO #### [facility] [address] [id number] Kellen Comfort RBC (U) [#/Vol] 5-10 Normal 0-2 [facility] Comment on above: Performed By: #### U ALONA THOMASRO #### [facility] [address] [id number] Kellen Comfort WBC (Bld) [#/Vol] 50-75 Normal NONE SEEN [facility] Comment on above: Performed By: #### U WILLIAM UMICRO #### [facility] [address] [id number] Kellen Comfort CULTURE THROATon 03-20-2019 CULTURE THROAT Culture Observations : Normal respiratory juan Normal [facility] Comment on above: Performed By: #### U WILLIAM UMICRO #### [facility] [address] [place], [place] [phone] Kellen Comfort INFLUENZA A AND B AGon 03-20 INFLUBNEGH SEE BELOW Normal [facility] Comment on above: Result Comment: Nega tive for Flu B protein antigen. Infection due to Flu B cannot be ruled out. Flu B antigen in the sample may be below the detection limit of the test. Performed By: #### U WILLIAM UMICRO #### [facility] [address] [place], [place] [id number] Kellen Comfort INFLUENZA A AG Positive Normal NEGATIVE SEE COMMENT [facility] Comment on above: Performed By: #### U ACSSARIKA UMICRO #### [facility] [address] [id number] Kellen Comfort INFLUENZA B AG Negative Normal NEGATIVE SEE COMMENT [facility] Comment on above: Performed By: #### U ACSSARIKA, UMICRO #### [facility] [address] [address] Kellen Moyer INFLUPOSH SEE BELOW Normal [facility] Comment on above: Result Comment: NOTE : Live attenuated influenzae vaccine viruses can cause a positive result for a rapid influenza diagnostic test if administered up to 7 days prior to rapid testing. Performed By: #### U ACSSARIKA, UMICRO #### [facility] [address] [address] Kellen Moyer INTERNAL CONTROLS Within Normal Limits Normal Wi thin Normal Limits [facility] Comment on above: Performed By: #### U ACSSARIKA, RENEICRO #### [facility] [address] [id number] Kellen Moyer STREPT SCREENon 03-20-2019 STREP SCREEN A Negative Normal NEGATIVE [facility] Comment on above: Performed By: #### U ACSSARIKA, UMICRO #### [facility] [address] [id number] Kellen Moyer US PREG <14 WKSon 03-13-2019 US PREG <14 WKS Patient: ANN-MARIE LÓPEZ Exam Date: 03/13/2019 : 1990 Gender:F Ordering : DR. JAIDEN TOTH . Admission #: [id number] Family : Order #: [id number] CLICK HERE TO VIEW EXAM RADIOLOGY REPORT [...] M.D. on 03/13/2019 at 10:13 Normal [facility] CBC AUTO DIFFon 10-19-2018 Basophils (Bld) [#/Vol] 0.0 103/ul Normal 0.0-0.1 [facility] Comment on above: Performed By: #### CHLOE BOTELLO #### [facility] [address] [place] [address] Kellen Comfort Basophils/100 WBC (Bld) 0.3 % Normal 0.2-2.0 [facility] Comment on above: Performed By: #### CHLOE BOTELLO #### [facility] [address] [place] [address] Kellen Comfort Eosinophils (Bld) [#/Vol] 0.1 103/ul Normal 0.0-0.7 [facility] Comment on above: Performed By: #### CHLOE BOTELLO #### [facility] [address] [place] [address] Kellen Comfort Eosinophils/100 WBC (Bld) 1.1 % Normal 0.9-7.0 [facility] Comment on above: Performed By: #### CHLOE BOTELLO #### [facility] [address] [place] [address] Kellen Comfort Erythrocyte distribution width (RBC) [Ratio] 11.9 % Normal 11.0-15.0 [facility] Comment on above: Performed By: #### CHLOE BOTELLO #### [facility] [address] [place] [address] Kellen Comfort Hematocrit (Bld) [Volume fraction] 32.4 % Critically low 36.0-48.0 [facility] Comment on above: Performed By: #### CHLOE BOTELLO #### [facility] [address] [place] [address] Kellen Comfort Hemoglobin (Bld) [Mass/Vol] 10.8 g/dL Critically low 12.0-16.0 [facility] Comment on above: Performed By: #### RENE BOTELLOICRO #### [facility] [address] [id number] Kellen Comfort IG # 0.03 10e3/ul Normal 0.00-0.03 [facility] Comment on above: Performed By: #### U WILLIAM UMICRO #### [facility] [address] [phone] Kellen Comfort IG % 0.3 % Normal 0.0-0.5 [facility] Comment on above: Performed By: #### U ACSSARIKA UMICRO #### [facility] [address] [address] Kellen Comfort Lymphocytes (Bld) [#/Vol] 1.6 103/ul Normal 1.2-3.8 [facility] Comment on above: Performed By: #### U WILLIAM UMICRO #### [facility] [address] [phone] Kellen Comfort Lymphocytes/100 WBC (Bld) 18.3 % Critically low 20.5-60.0 [facility] Comment on above: Performed By: #### U WILLIAM ICRO #### [facility] [address] [phone] Kellen Comfort MANUAL DIFF REQ NO Normal [facility] Comment on above: Performed By: #### U ACSSARIKA UMICRO #### [facility] [address] [phone] Kellen Comfort MCH (RBC) [Entitic mass] 29.5 pg Normal 26.7-34.0 [facility] Comment on above: Performed By: #### U ACSSARIKA UMICRO #### [facility] [address] [phone] Kellen Comfort MCHC (RBC) [Mass/Vol] 33.3 g/dL Normal 29.9-35.2 [facility] Comment on above: Performed By: #### U ACSSARIKA, UMICRO #### [facility] [address] [phone] Kellen Comfort MCV (RBC) [Entitic vol] 88.5 fL Normal 81.0-99.0 [facility] Comment on above: Performed By: #### ALONA BOTELLORO #### [facility] [address] [place] [address] Kellen Comfort Monocytes (Bld) [#/Vol] 0.7 103/ul Normal 0.3-0.8 [facility] Comment on above: Performed By: #### REEN BOTELLOICRO #### [facility] [address] [place] [address] Kellen Comfort Monocytes/100 WBC (Bld) 8.0 % Normal 1.7-12.0 [facility] Comment on above: Performed By: #### CHLOE BOTELLO #### [facility] [address] [place] [address] Kellen Comfort Neutrophils (Bld) [#/Vol] 6.4 103/ul Normal 1.4-6.5 [facility] Comment on above: Performed By: #### RENE BOTELLOICRO #### [facility] [address] [place] [address] Kellen Comfort Neutrophils/100 WBC (Bld) 72.0 % Normal 43.0-75.0 [facility] Comment on above: Performed By: #### RENE BOTELLOICRO #### [facility] [address] [place] [address] Kellen Comfort Platelet mean volume (Bld) [Entitic vol] 12.3 fL Normal 9.5-13.5 [facility] Comment on above: Performed By: #### RENE BOTELLOICRO #### [facility] [address] [place] [address] Kellen Comfort Platelets (Bld) [#/Vol] 154 103/ul Normal 150-450 [facility] Comment on above: Performed By: #### RENE BOTELLOICRO #### [facility] [address] [place] [address] Kellen Comfort RBC (Bld) [#/Vol] 3.66 106/ul Critically low 4.20-5.40 [facility] Comment on above: Performed By: #### U CHLOE THOMAS #### [facility] [address], [place] [address] Kellen Comfort WBC (Bld) [#/Vol] 8.9 103/ul Normal 4.0-11.0 [facility] Comment on above: Performed By: #### U CHLOE THOMAS #### [facility] [address] [place], [place] [phone] Kellen Comfort CBC AUTO DIFFon 10-18-2018 Basophils (Bld) [#/Vol] 0.0 103/ul Normal 0.0-0.1 [facility] Comment on above: Performed By: #### C BC #### [facility] [address] [place], [place] [address] Kellen Comfort Basophils/100 WBC (Bld) 0.4 % Normal 0.2-2.0 [facility] Comment on above: Performed By: #### C BC #### [facility] [address] [place] [address] Kellen Comfort Eosinophils (Bld) [#/Vol] 0.1 103/ul Normal 0.0-0.7 [facility] Comment on above: Performed By: #### C BC #### [facility] [address] [place], [place] [phone] Kellen Comfort Eosinophils/100 WBC (Bld) 0.7 % Critically low 0.9-7.0 [facility] Comment on above: Performed By: #### C BC #### [facility] [address] [place], [place] [phone] Kellen Comfort Erythrocyte distribution width (RBC) [Ratio] 11.8 % Normal 11.0-15.0 [facility] Comment on above: Performed By: #### C BC #### [facility] [address] [place], [place] [phone] Kellen Comfort Hematocrit (Bld) [Volume fraction] 34.9 % Critically low 36.0-48.0 [facility] Comment on above: Performed By: #### C BC #### [facility] [address] [address] Kellen Comfort Hemoglobin (Bld) [Mass/Vol] 11.7 g/dL Critically low 12.0-16.0 [facility] Comment on above: Performed By: #### C BC #### [facility] [address] [place] [address] Kellen Comfort IG # 0.01 10e3/ul Normal 0.00-0.03 [facility] Comment on above: Performed By: #### C BC #### [facility] [address] [place] [address] Kellen Comfort IG % 0.1 % Normal 0.0-0.5 [facility] Comment on above: Performed By: #### C BC #### [facility] [address] [place] [address] Kellen Comfort Lymphocytes (Bld) [#/Vol] 1.2 103/ul Normal 1.2-3.8 [facility] Comment on above: Performed By: #### C BC #### [facility] [address] [place] [address] Kellen Comfort Lymphocytes/100 WBC (Bld) 16.5 % Critically low 20.5-60.0 [facility] Comment on above: Performed By: #### C BC #### [facility] [address] [place], [place] [phone] Kellenrachel Moyer MANUAL DIFF REQ NO Normal [facility] Comment on above: Performed By: #### C BC #### [facility] [address] [place], [place] [phone] Kellen Comfort MCH (RBC) [Entitic mass] 29.2 pg Normal 26.7-34.0 [facility] Comment on above: Performed By: #### C BC #### [facility] [address] [place], [place] [address] Kellen Comfort MCHC (RBC) [Mass/Vol] 33.5 g/dL Normal 29.9-35.2 [facility] Comment on above: Performed By: #### C BC #### [facility] [address] [place], [place] [address] Kellen Comfort MCV (RBC) [Entitic vol] 87.0 fL Normal 81.0-99.0 [facility] Comment on above: Performed By: #### C BC #### [facility] [address] [place], [place] [address] Kellen Comfort Monocytes (Bld) [#/Vol] 0.6 103/ul Normal 0.3-0.8 [facility] Comment on above: Performed By: #### C BC #### [facility] [address] [place], [place] [address] Kellen Comfort Monocytes/100 WBC (Bld) 8.3 % Normal 1.7-12.0 [facility] Comment on above: Performed By: #### C BC #### [facility] [address] [place], [place] [address] Kellen Comfort Neutrophils (Bld) [#/Vol] 5.3 103/ul Normal 1.4-6.5 [facility] Comment on above: Performed By: #### C BC #### [facility] [address] [place], [place] [address] Kellen Comfort Neutrophils/100 WBC (Bld) 74.0 % Normal 43.0-75.0 [facility] Comment on above: Performed By: #### C BC #### [facility] [address] [place], [place] [address] Kellen Comfort Platelet mean volume (Bld) [Entitic vol] 12.4 fL Normal 9.5-13.5 [facility] Comment on above: Performed By: #### C BC #### [facility] [address] [place], [place] [address] Kellen Comfort Platelets (Bld) [#/Vol] 167 103/ul Normal 150-450 [facility] Comment on above: Performed By: #### C BC #### [facility] [address] [place], [place] [address] Kellen Comfort RBC (Bld) [#/Vol] 4.01 106/ul Critically low 4.20-5.40 [facility] Comment on above: Performed By: #### C BC #### [facility] [address] [place] [address] Kellenrachel Moyer WBC (Bld) [#/Vol] 7.1 103/ul Normal 4.0-11.0 [facility] Comment on above: Performed By: #### C BC #### [facility] [address] [place] [address] Kellenrachel Moyer CULTURE URINEon 10-18-2018 CULTURE URINE Culture Observations : NORMAL GENITAL JUAN. NO POTENTIAL PATHOGENS SEEN. Normal [facility] Comment on above: Performed By: #### U ACSIND, UMICRO #### [facility] [address] [place] [address] Kellenrachel Moyer DRUG SCREEN RAPID (URINE)on 10-18-2018 AMP Negative Normal NEGATIVE [facility] Comment on above: Performed By: #### D RUGRPD #### [facility] [address] [place] [address] Kellen Comfort BAR Negative Normal NEGATIVE [facility] Comment on above: Performed By: #### D RUGRPD #### [facility] [address] [place] [address] Kellen Comfort BUP Negative Normal NEGATIVE [facility] Comment on above: Performed By: #### D RUGRPD #### [facility] [address] [place] [address] Kellen Comfort BZO Negative Normal NEGATIVE [facility] Comment on above: Performed By: #### D RUGRPD #### [facility] [address] [place] [address] Kellen Comfort DIANA Negative Normal NEGATIVE [facility] Comment on above: Performed By: #### D RUGRPD #### [facility] [address] [place] [address] Kellen Comfort CUT-OFFS SEE BELOW Normal [facility] Comment on above: Result Comment: AMP (Amphetamine): [...] ng/mL Performed By: #### D RUGRPD #### [facility] [address] [place] [address] Kellen Comfort DRUG CUT HEADER DRUG CLASS TEST SYST EM CUT-OFF CONCENTRATIONS ARE FOLLOWS: Normal [facility] Comment on above: Performed By: #### D RUGRPD #### [facility] [address] [place] [address] Kellen Comfort mAMP Negative Normal NEGATIVE [facility] Comment on above: Performed By: #### D RUGRPD #### [facility] [address] [place] [address] Kellen Comfort MTD Negative Normal NEGATIVE [facility] Comment on above: Performed By: #### D RUGRPD #### [facility] [address] [place] [address] Kellen Comfort OPI Negative Normal NEGATIVE [facility] Comment on above: Performed By: #### D RUGRPD #### [facility] [address] [place] [address] Kellen Comfort OXY Negative Normal NEGATIVE [facility] Comment on above: Performed By: #### D RUGRPD #### [facility] [address] [place] [address] Kellen Comfort PCP Negative Normal NEGATIVE [facility] Comment on above: Performed By: #### D RUGRPD #### [facility] [address] [place] [address] [facility] Normal NEGATIVE [facility] Comment on above: Performed By: #### D RUGRPD #### [facility] [address] [place] [address] Kellen Comfort TCA Negative Normal NEGATIVE [facility] Comment on above: Performed By: #### D RUGRPD #### [facility] [address] [place] [address] Kellen Comfort THC Negative Normal NEGATIVE [facility] Comment on above: Performed By: #### D RUGRPD #### [facility] [address] [place] [address] Kellen Comfort UA (CLEAN/CATCH) AMMONIA NITRATE OPERATOR/MICRO I F IND.on 10-18-2018 Bilirubin [Mass/Vol] SMALL Normal NEGATIVE [facility] Comment on above: Performed By: #### U ACSSARIKA UMICRO #### [facility] [address] [place] [address] Kellen Comfort BLOOD LARGE Normal NEGATIVE [facility] Comment on above: Performed By: #### U ACSSARIKA UMICRO #### [facility] [address] [place] [address] Kellen Comfort Clarity (U) CLOUDY Normal [facility] Comment on above: Performed By: #### U ACSSARIKA UMICRO #### [facility] [address] [place] [address] Kellen Comfort Color (U) DK. ORANGE Normal YELLOW [facility] Comment on above: Performed By: #### U ACSSARIKA UMICRO #### [facility] [address] [place] [address] Kellen Comfort Glucose [Mass/Vol] Negative Normal NEGATIVE [facility] Comment on above: Performed By: #### U ACSSARIKA UMICRO #### [facility] [address] [place] [address] Kellen Comfort Ketones Ql (U) Negative Normal NEGATIVE [facility] Comment on above: Performed By: #### U ACSSARIKA UMICRO #### [facility] [address] [place] [address] Kellen Comfort Nitrite Ql (U) Negative Normal NEGATIVE [facility] Comment on above: Performed By: #### U ACSSARIKA UMICRO #### [facility] [address] [place] [address] Kellen Comfort pH (Bld) 5.5 Normal 5-9 [facility] Comment on above: Performed By: #### U ACSCHLOE BAUM #### [facility] [address] [address] Kellen Comfort Protein [Mass/Vol] 30 mg/dl Normal [facility] Comment on above: Performed By: #### U CHLOE THOMAS #### [facility] [address] [address] Kellen Comfort SPEC GRAVITY >=1.030 Normal 1.005-<=1.0 25 [facility] Comment on above: Performed By: #### U CHLOE THOMAS #### [facility] [address] [address] Kellen Comfort UR MICRO IND INDICATED Normal [facility] Comment on above: Performed By: #### U CHLOE THOMAS #### [facility] [address] [address] Kellen Comfort Urobilinogen Qn (U) 0.2 EU/dl Normal [facility] Comment on above: Performed By: #### U CHLOE THOMAS #### [facility] [address] [address] Kellen Comfort WBC (Bld) [#/Vol] MODERATE Normal NEGATIVE [facility] Comment on above: Performed By: #### U CHLOE THOMAS #### [facility] [address] [address] Kellen Comfort URINE MICROSCOPIC ONLYon Bacteria LM.HPF (Urine sed) [#/Area] MODERATE Normal NONE SEEN [facility] Comment on above: Performed By: #### U CHLOE THOMAS #### [facility] [address] [address] Kellen Comfort CAST NONE SEEN Normal NONE SEEN [facility] Comment on above: Performed By: #### U CHLOE THOMAS #### [facility] [address] [address] Kellen Comfort Crystals LM Nom (Urine sed) NONE SEEN Normal NONE SEEN [facility] Comment on above: Performed By: #### CHLOE BOTELLO #### [facility] [address] [address] Kellenrachel Moyer CULTURE INDICATED Normal [facility] Comment on above: Performed By: #### U ACSIND, UMICRO #### [facility] [address] [phone] Kellenrachel Moyer Epithelial cells LM.HPF (Urine sed) [#/Area] MANY Normal [facility] Comment on above: Performed By: #### U ACSIND, UMICRO #### [facility] [address] [phone] Kellen Comfort MUCOUS TRACE Normal NONE SEEN [facility] Comment on above: Performed By: #### U ACSIND, UMICRO #### [facility] [address] [phone] Kellen Comfort RBC (U) [#/Vol] 10-20 Normal 0-2 [facility] Comment on above: Performed By: #### U ACSIND, UMICRO #### [facility] [address] [phone] Kellen Moyer WBC (Bld) [#/Vol] 75-100 Normal NONE SEEN [facility] Comment on above: Performed By: #### U ACSIND, UMICRO #### [facility] [address] [phone] Kellen Comfort US PREG GROWTHon 10-11-2018 US PREG GROWTH Patient: ANN-MARIE LÓPEZ Exam Date: 10/11/2018 : 1990 Gender:F Ordering : DR. JAIDEN TOTH . Admission #: [id number] Family : Order #: [id number] CLICK HERE TO VIEW EXAM RADIOLOGY REPORT [...] M.D. on 10/11/2018 at 16:24 Normal [facility] CHLAMYDIA/GONOCOCCUS TELLO (SW AB/URINE/PAPon 10-04-2018 Chlamydia trachomatis, TELLO Negative Normal Negative [facility] Comment on above: Performed By: #### C T/NGNA #### [facility] [address] [place] [address] Kellen Moyer Neisseria gonorrhoeae, TELLO Negative Normal Negative [facility] Comment on above: Performed By: #### C T/NGNA #### [facility] [address] [place], [place] [address] Kellenrachel Moyer GROUP B STREP CULTUREon 09-08 S. agalactiae Ag Ql (Unsp spec) Culture Observations: Negative for Group B Streptococcus Normal [facility] Comment on above: Performed By: #### G BSCX #### [facility] [address] [place] [address] Kellen Moyer US PREG PLACENTAon 9 US PREG PLACENTA Patient: ANN-MARIE LÓPEZ Exam Date: 09/02/2018 : 1990 Gender:F Ordering : DR. JAIDEN TOTH . Admission #: [id number] Family : Order #: [id number] CLICK HERE TO VIEW EXAM RADIOLOGY REPORT [...] Allan M.D. on 10/23/2018 at 03:32 Normal [facility] CULTURE URINEon 09-02-2018 CULTURE URINE Culture Observations : Moderate growth of mixed genital juan. No potential pathogens seen. Normal [facility] Comment on above: Performed By: #### U RCX #### [facility] [address] [place] [address] Kellen Comfort UA (CLEAN/CATCH) AMMONIA NITRATE OPERATOR/MICRO I F IND.on 09-02-2018 Bilirubin [Mass/Vol] Negative Normal NEGATIVE [facility] Comment on above: Performed By: #### U WILLIAM BUSHRA #### [facility] [address] [place] [address] Kellen Comfort BLOOD Negative Normal NEGATIVE [facility] Comment on above: Performed By: #### U ALONA THOMASRO #### [facility] [address] [place] [address] Kellen Comfort Clarity (U) CLEAR Normal [facility] Comment on above: Performed By: #### U ACSSARIKA ICRO #### [facility] [address] [place] [address] Kellen Comfort Color (U) LT. YELLOW Normal YELLOW [facility] Comment on above: Performed By: #### U ACSALONA BAUMRO #### [facility] [address] [place] [address] Kellen Comfort Glucose [Mass/Vol] Negative Normal NEGATIVE [facility] Comment on above: Performed By: #### U WILLIAM UMICRO #### [facility] [address] [address] Kellen Comfort Ketones Ql (U) Negative Normal NEGATIVE [facility] Comment on above: Performed By: #### U WILLIAM UMICRO #### [facility] [address] [address] Kellen Comfort Nitrite Ql (U) Negative Normal NEGATIVE [facility] Comment on above: Performed By: #### U WILLIAM UMICRO #### [facility] [address] [address] Kellen Comfort pH (Bld) 6.0 Normal 5-9 [facility] Comment on above: Performed By: #### U RENE THOMASICRO #### [facility] [address] [place] [address] Kellen Comfort Protein [Mass/Vol] Negative Normal [facility] Comment on above: Performed By: #### U RENE THOMASICRO #### [facility] [address] [place] [address] Kellen Comfort SPEC GRAVITY >=1.030 Normal 1.005-<=1.0 25 [facility] Comment on above: Performed By: #### U RENE THOMASICRO #### [facility] [address] [place] [address] Kellen Comfort UR MICRO IND INDICATED Normal [facility] Comment on above: Performed By: #### U RENE THOMASICRO #### [facility] [address] [place] [address] Kellen Comfort Urobilinogen Qn (U) 0.2 EU/dl Normal [facility] Comment on above: Performed By: #### U ALONA THOMASRO #### [facility] [address] [place], [place] [phone] Kellen Comfort WBC (Bld) [#/Vol] MODERATE Normal NEGATIVE [facility] Comment on above: Performed By: #### U ALONA THOMASRO #### [facility] [address] [place] [address] Kellen Comfort URINE MICROSCOPIC ONLYon Bacteria LM.HPF (Urine sed) [#/Area] MODERATE Normal NONE SEEN [facility] Comment on above: Performed By: #### U ACSSARIKA, UMICRO #### [facility] [address] [address] Kellen Comfort CAST NONE SEEN Normal NONE SEEN [facility] Comment on above: Performed By: #### U ACSSARIKA, UMICRO #### [facility] [address] [address] Kellen Comfort Crystals LM Nom (Urine sed) NONE SEEN Normal NONE SEEN [facility] Comment on above: Performed By: #### U ACSSARIKA UMICRO #### [facility] [address] [address] Kellen Comfort CULTURE INDICATED Normal [facility] Comment on above: Performed By: #### U ACSSARIKA UMICRO #### [facility] [address] [address] Kellen Comfort Epithelial cells LM.HPF (Urine sed) [#/Area] FEW Normal [facility] Comment on above: Performed By: #### U ACSSARIKA UMICRO #### [facility] [address] [address] Kellen Comfort MUCOUS SMALL Normal NONE SEEN [facility] Comment on above: Performed By: #### U ACSSARIKA, UMICRO #### [facility] [address] [address] Kellen Comfort RBC (U) [#/Vol] NONE SEEN Normal 0-2 [facility] Comment on above: Performed By: #### U ACSSARIKA, UMICRO #### [facility] [address] [address] Kellen Comfort WBC (Bld) [#/Vol] 20-50 Normal NONE SEEN [facility] Comment on above: Performed By: #### U ACSIND, UMICRO #### [facility] [address] [phone] Kellen Comfort US PREG ANATOMY SINGLEon US PREG ANATOMY SINGLE Patient: ANN-MARIE LÓPEZ Exam Date: 06/12/2018 : 1990 Gender:F Ordering : DR. JAIDEN TOTH . Admission #: [id number] Family : Order #: [id number] CLICK HERE TO VIEW EXAM RADIOLOGY REPORT [...] Horn M.D. on 06/13/2018 at 08:26 Normal [facility] [place] Vital Signs Date Time Vital Sign Value Performing Clinician Facility 08-06-2024 08:48-0400 Body mass index (BMI) [Ratio] 38.91 kg/m2 Sukhjinder Trent DO Work Phone: [facility] 08-06-2024 08:48-0400 Body weight 106.05 kg Sukhjinder Trent DO Work Phone: [facility] 08-06-2024 08:48-0400 Diastolic blood pressure 78 mm[Hg] Sukhjinder Trent DO Work Phone: [facility] 08-06-2024 08:48-0400 Systolic blood pressure 118 mm[Hg] Sukhjinder Trent DO Work Phone: [facility] 07-24-2024 09:56-0400 Body mass index (BMI) [Ratio] 39.01 kg/m2 Sukhjinder Trent DO Work Phone: [facility] 07-24-2024 09:56-0400 Body weight 106.32 kg Sukhjinder Trent DO Work Phone: [facility] 07-24-2024 09:56-0400 Diastolic blood pressure 86 mm[Hg] Sukhjinder Trent DO Work Phone: [facility] 07-24-2024 09:56-0400 Systolic blood pressure 126 mm[Hg] Sukhjinder Trent DO Work Phone: [facility] 07-19-2024 11:30-0400 Body mass index (BMI) [Ratio] 38.81 kg/m2 Riya Hinojosa MD Work Phone: [facility] 07-19-2024 11:30-0400 Body temperature 97.11 [degF] Riya Hinojosa MD Work Phone: [facility] 07-19-2024 11:30-0400 Body weight 105.78 kg Riya Hinojosa MD Work Phone: [facility] 07-19-2024 11:30-0400 Diastolic blood pressure 84 mm[Hg] Riya Hinojosa MD Work Phone: [facility] 07-19-2024 11:30-0400 Heart rate 88 /min Riya Hinojosa MD Work Phone: [facility] 07-19-2024 11:30-0400 SaO2% (BldA) [Mass fraction] 96 % Riya Hinojosa MD Work Phone: [facility] 07-19-2024 11:30-0400 Systolic blood pressure 120 mm[Hg] Riya Hinojosa MD Work Phone: [facility] 07-03-2024 11:47-0400 Body mass index (BMI) [Ratio] 38.63 kg/m2 Sukhjinder Trent DO Work Phone: [facility] 07-03-2024 11:47-0400 Body weight 105.29 kg Sukhjinder Trent DO Work Phone: [facility] 07-03-2024 11:47-0400 Diastolic blood pressure 80 mm[Hg] Sukhjinder Trent DO Work Phone: [facility] 07-03-2024 11:47-0400 Systolic blood pressure 120 mm[Hg] Sukhjinder Trent DO Work Phone: [facility] 06-07-2024 09:32-0400 Body mass index (BMI) [Ratio] 38.77 kg/m2 Sukhjinder Trent DO Work Phone: [facility] 06-07-2024 09:32-0400 Body weight 105.69 kg Sukhjinder Trent DO Work Phone: [facility] 06-07-2024 09:32-0400 Diastolic blood pressure 70 mm[Hg] Sukhjinder Trent DO Work Phone: [facility] 06-07-2024 09:32-0400 Systolic blood pressure 116 mm[Hg] Sukhjinder Newman DO Work Phone: [facility] 12-01-2023 12:18-0400 Body mass index (BMI) [Ratio] 37.34 kg/m2 Shefali Calvillo AUT[employer] EMISSIONS TECHNICIAN Work Phone: [facility] 12-01-2023 12:18-0400 Body temperature 97.3 [degF] Shefali Calvillo AUTO EMISSIONS TECHNICIAN Work Phone: [facility] 12-01-2023 12:18-0400 Body weight 101.79 kg Shefali Calvillo AUTO EMISSIONS TECHNICIAN Work Phone: [facility] 12-01-2023 12:18-0400 Diastolic blood pressure 82 mm[Hg] Shefali Calvillo AUTO EMISSIONS TECHNICIAN Work Phone: [facility] 12-01-2023 12:18-0400 Heart rate 95 /min Shefali Calvillo AUTO EMISSIONS TECHNICIAN Work Phone: [facility] 12-01-2023 12:18-0400 SaO2% (BldA) [Mass fraction] 97 % Shefali Calvillo AUTO EMISSIONS TECHNICIAN Work Phone: [facility] 12-01-2023 12:18-0400 Systolic blood pressure 116 mm[Hg] Shefali Calvillo AUTO EMISSIONS TECHNICIAN Work Phone: [facility] 01-27-2022 12:15-0500 Body height 167.64 cm Cecilia Perez Other [facility] Other 01-27-2022 12:15-0500 Body mass index (BMI) [Ratio] 34.54 kg/m2 Cecilia Perez Other [facility] Other 01-27-2022 12:15-0500 Body temperature 98.4 [degF] Cecilia Perez Other [facility] Other 01-27-2022 12:15-0500 Body weight 97.07 kg Cecilia Ana Other [facility] Other 01-27-2022 12:15-0500 Respiratory rate 18 /min Cecilia Ana Other [facility] Other 01-27-2022 12:15-0500 SaO2% (BldA) [Mass fraction] 97 % Cecilia Ana Other [facility] Other 04-29-2021 12:40-0400 Body height 167.64 cm Cecilia Ana Other [facility] Other 04-29-2021 12:40-0400 Body mass index (BMI) [Ratio] 35.34 kg/m2 Cecilia Ana Other [facility] Other 04-29-2021 12:40-0400 Body temperature 98 [degF] Cecilia Ana Other [facility] Other 04-29-2021 12:40-0400 Body weight 99.34 kg Cecilia Ana Other [facility] Other 04-29-2021 12:40-0400 Diastolic blood pressure 88 mm[Hg] Cecilia Ana Other [facility] Other 04-29-2021 12:40-0400 Respiratory rate 18 /min Cecilia Ana Other [facility] Other 04-29-2021 12:40-0400 SaO2% (BldA) [Mass fraction] 98 % Cecilia Ana Other [facility] Other 04-29-2021 12:40-0400 Systolic blood pressure 129 mm[Hg] Cecilia Ana Other [facility] [employer] Other Encounters Encounter Date Encounter Type Care Provider Facility Start: 08-06-2024 End: 08-06-2024 Bamboo flowsheet Sukhjinder Trent DO Work Phone: [facility] Start: 08-06-2024 End: 08-06-2024 Bamboo flowsheet Sukhjinder Trent DO Work Phone: [facility] Start: 08-06-2024 End: 08-06-2024 Office outpatient visit 15 minutes Sukhjinder Trent DO Work Phone: [facility] Comment on above: Encounter to discuss procedure; LGSIL on Pap smear of cervix; Menorrhagia with irregular cycle; HGSIL (high grade squamous intraepithelial lesion) on Pap smear of cervix Start: 08-06-2024 End: 08-06-2024 ambulatory SUKHJINDER TRENT Not Available Start: 07-24-2024 End: 07-24-2024 ambulatory Sukhjinder Trent Facility:[facility] Start: 07-24-2024 End: 07-24-2024 Patient encounter procedure Sukhjinder Trent DO Work Phone: [facility] Comment on above: LGSIL on Pap smear o f cervix; High risk human papillomavirus (HPV) DNA test positive Start: 07-24-2024 End: 07-24-2024 ambulatory SUKHJINDER TRENT Not Available Start: 07-19-2024 End: 07-19-2024 Bamboo flowsheet Riya [...] 12-01-2023 End: 12-01-2023 Bamboo flowsheet Shefali Calvillo AUTO EMISSIONS TECHNICIAN Work Phone: [facility] Start: 12-01-2023 End: 12-01-2023 Bamboo flowsheet Shefali Kampfer AUTO EMISSIONS TECHNICIAN Work Phone: [facility] Start: 12-01-2023 End: 12-01-2023 ambulatory SHEFALI CALVILLO Not Available Start: 12-01-2023 End: 12-01-2023 Office outpatient visit 15 minutes Shefali Calvillo AUT[employer] EMISSIONS TECHNICIAN Work Phone: [facility] Comment on above: Acute cough (Primary Dx); Acute bronchitis, unspecified organism Start: 09-09-2023 End: 09-09-2023 Departed Referred PHYSICIAN [facility] [address] Work Phone: Start: 09-09-2023 End: 09-09-2023 ambulatory PHYSICIAN NO [facility] Work Phone: Start: 08-12-2023 End: 08-12-2023 Emergency department patient visit RIYA HINOJOSA [facility] Start: 04-05-2022 End: 04-06-2022 ambulatory PROVIDER UNKNOWN [facility] Start: 04-05-2022 End: 04-05-2022 Subsequent hospital visit by physician [facility] Start: 01-27-2022 End: 01-27-2022 ambulatory Cecilia Ana Other [facility] Other Start: 01-27-2022 Office outpatient vi sit 25 minutes Cecilia Ana [facility] Start: 04-29-2021 End: 04-29-2021 ambulatory Cecilia Ana Other [facility] Other Start: 04-29-2021 Office outpatient vi sit 25 minutes Cecilia Ana [facility] Start: 06-01-2019 End: 06-02-2019 Patient encounter procedure JAIDEN TOTH Facility:[facility] Start: 04-25-2019 End: 04-25-2019 Patient encounter procedure JAIDEN TOTH Facility:[facility] Start: 03-20-2019 End: 03-21-2019 Patient encounter procedure RIYA HINOJOSA Facility:[facility] Start: 03-13-2019 End: 03-14-2019 Patient encounter [...] DIFF Sukhjinder Trent DO Work Phone: Start: 07-03-2024 Microscopic observat ion [Identifier] in Cervix by Cyto stain Sukhjinder Trent DO Work Phone: Start: 12-01-2023 STATUS COVID-19/FLU Abhi tomasz Calvillo AUT[employer] EMISSIONS TECHNICIAN Work Phone: Start: 04-29-2022 Microscopic observat ion [Identifier] in Cervix by Cyto stain Sukhjinder Trent DO Work Phone: Start: 04-29-2022 Cytp cerv/vag auto t hin layer prep mnl screen Francia Rock AUTO EMISSIONS TECHNICIAN Work Phone: Start: 10-18-2018 Delivery of Products of Conception, External Approach JAIDEN TOTH Start: 10-18-2018 Drainage of Amniotic Fluid, Therapeutic from Products of Conception, Via Natural or Artificial Opening JAIDEN TOTH Start: 10-18-2018 Repair Perineum Skin , External Approach JAIDEN TOTH Plan of Treatment Date Care Activity Detail Author Start: 07-04-2027 Screening for malign ant neoplasm of cervix Pap Smear [facility] Start: 04-30-2027 Screening for malign ant neoplasm of cervix [facility] Start: 01-28-2025 End: 01-28-2025 Patient encounter procedure 01/28/2025 10:20 AM EST Procedure Visit [facility] [address] [place] [id number] Sukhjinder Newman, DO [address] [place] [address] [facility] Start: 10-26-2024 End: 10-26-2024 Patient encounter procedure 10/26/2024 9:30 AM EDT Office Visit [facility] [address] [facility] [place] [id number] Riya Hinojosa MD [address] [facility] [place] [address] [facility] Start: 10-08-2024 Influenza vaccination Influenz a Vaccine (Season Ended) [facility] Start: 08-28-2024 End: 08-28-2024 Patient encounter procedure 08/28/2024 11:20 AM EDT Office Visit [facility] [address] [place] [phone] Juliette Klein PA [address] [place] [address] [facility] Start: 08-06-2024 End: 08-06-2024 Patient encounter procedure 08/06/2024 8:40 AM EDT Consult [facility] [address] [place] [place] [phone] Sukhjinder Newman, DO [address] [place] [address] Arrived [facility] Comment on above: Arrived Start: 07-24-2024 End: 07-24-2024 Patient encounter procedure 07/24/2024 9:30 AM EDT Procedure Visit [facility] [address] [place] [address] Sukhjinder Newman, DO [address] [place] [address] [facility] Start: 07-19-2024 End: 07-19-2024 Patient encounter procedure 07/19/2024 9:30 AM EDT Procedure Visit [facility] [address] [place] [phone] Sukhjinder Newman, DO [address] [place] [address] [facility] Start: 07-03-2024 End: 07-03-2024 Patient encounter procedure 07/03/2024 11:40 AM EDT Office Visit [facility] [address] [place] [phone] Sukhjinder Newman, DO [address] [place] [address] [facility] Start: 06-07-2024 End: 06-07-2025 DHEA DHEA Lab Routine PCOS (polycystic ovarian syndrome) Encounter for weight management Menorrhagia with irregular cycle Expected: 06/07/2024 (Approximate), Expires: 06/07/2025 [facility] Comment on above: Expected: 06/07/2024 (Approximate), [...] with irregular cycle Expected: 06/07/2024, Expires: 12/08/2024 [facility] Comment on above: Expected: 06/07/2024 , Expires: 12/08/2024 Start: 06-07-2024 End: 06-07-2024 Patient encounter procedure 06/07/2024 9:10 AM EDT Office Visit [facility] [address] [place] [address] Sukhjinder Newman, [address] [place] [address] Arrived [facility] Comment on above: Arrived Start: 10-09-2023 Influenza vaccination Influenza Vacc ine (#1) [facility] Start: 09-07-2021 Influenza vaccination Flu vaccine (# 1) [facility] Start: 04-15-2021 Screening for malign ant neoplasm of cervix [facility] Start: 04-15-2012 Screening for malign ant neoplasm of cervix Pap Smear [facility] Start: 04-15-2010 DTaP/Tdap/Td vaccine (1 - Tdap) DTaP/Tdap/Td vaccine (1 - Tdap) [facility] Start: 1990 COVID-19 Vaccine (#1) COVID-19 Vacci ne (#1) [facility] CBC W Auto Different ial panel - Blood CBC and differential Lab Routine PCOS (polycystic ovarian syndrome) Encounter for weight management Menorrhagia with irregular cycle Ordered: 06/07/2024 [facility] Comment on above: Ordered: 06/07/2024 Cytology Cervical or vaginal smear or scraping study Pap Smear Pathology and Cytology Routine Well woman exam with routine gynecological exam Ordered: 07/03/2024 [facility] Work Phone: Comment on above: Ordered: 07/03/2024 DHEA-sulfate DHEA-sulfate Lab Routine PCOS (polycystic ovarian syndrome) Encounter for weight management Menorrhagia with irregular cycle Ordered: 06/07/2024 [facility] Comment on above: Ordered: 06/07/2024 Estradiol Estradiol Lab Ro utine PCOS (polycystic ovarian syndrome) Encounter for weight management Menorrhagia with irregular cycle Ordered: 06/07/2024 [facility] Comment on above: Ordered: 06/07/2024 Follicle stimulating hormone Follicle stimulating hormone Lab Routine PCOS (polycystic ovarian syndrome) Encounter for weight management Menorrhagia with irregular cycle Ordered: 06/07/2024 [facility] Comment on above: Ordered: 06/07/2024 Glucose measurement estimated from glycated hemoglobin [facility] hCG, quantitative, hCG, quantitative, Lab Routine PCOS (polycystic ovarian syndrome) Encounter for weight management Menorrhagia with irregular cycle Ordered: 06/07/2024 [facility] Work Phone: Comment on above: Ordered: 06/07/2024 Hemoglobin A1c/Hemoglobin.total in Blood Hemoglobin A1c Lab Routine PCOS (polycystic ovarian syndrome) Encounter for weight management Menorrhagia with irregular cycle Ordered: 06/07/2024 [facility] Comment on above: Ordered: 06/07/2024 Human papilloma viru s DNA [Presence] in Unspecified specimen by Probe with amplification HPV DNA probe, amplified Microbiology Routine Well woman exam with routine gynecological exam Ordered: 07/03/2024 [facility] Comment on above: Ordered: 07/03/2024 Luteinizing hormone Luteinizing hormone Lab Routine PCOS (polycystic ovarian syndrome) Encounter for weight management Menorrhagia with irregular cycle Ordered: 06/07/2024 [facility] Comment on above: Ordered: 06/07/2024 Thyrotropin [Units/volume] in Serum or Plasma TSH Lab Routine PCOS (polycystic ovarian syndrome) Encounter for weight management Menorrhagia with irregular cycle Ordered: 06/07/2024 [facility] Comment on above: Ordered: 06/07/2024 Thyroxine (T4) free [Mass/volume] in Serum or Plasma T4, free Lab Routine PCOS (polycystic ovarian syndrome) Encounter for weight management Menorrhagia with irregular cycle Ordered: 06/07/2024 [facility] Comment on above: Ordered: 06/07/2024 End: 04-05-2022 Varicella Zoster Antibody, IgG BON [employer] Work Phone: Comment on above: Once for 1 Occurrenc es starting 04/05/2022 until 04/05/2022 [facility] Immunizations Immunization Date Immunization Notes Care Provider Maria Isabel zee 01-14-2022 influenza, injectabl e, quadrivalent, preservative free Shefali Kampfer AUTO EMISSIONS TECHNICIAN Work Phone: [facility] 01-14-2022 influenza virus vacc ine, unspecified formulation Shefali Kampfer AUTO EMISSIONS TECHNICIAN Work Phone: [facility] 07-24-2019 tetanus toxoid, redu kayla diphtheria toxoid, and acellular pertussis vaccine, adsorbed Shefali Kampfer AUTO EMISSIONS TECHNICIAN Work Phone: [facility] 11-23-2018 Influenza, injectabl e, Madin Lorena Canine Kidney, preservative free, quadrivalent Shefali Kampfer AUTO EMISSIONS TECHNICIAN Work Phone: [facility] 03-08-2018 influenza, injectabl e, quadrivalent, contains preservative Shefali Kampfer AUTO EMISSIONS TECHNICIAN Work Phone: [facility] 02-27-2018 Influenza, injectabl e, Madin Lorena Canine Kidney, preservative free, quadrivalent Shefali Kampfer AUTO EMISSIONS TECHNICIAN Work Phone: [facility] 02-27-2018 tuberculin skin test ; purified protein derivative solution, intradermal Shefali Koehlerpfer AUTO EMISSIONS TECHNICIAN Work Phone: [facility] 12-05-2014 influenza, seasonal, injectable Shefali Koehlerpfer AUTO EMISSIONS TECHNICIAN Work Phone: [facility] 10-20-1996 hepatitis B vaccine, adult dosage Shefali Koehlerpfer AUTO EMISSIONS TECHNICIAN Work Phone: [facility] 09-19-1996 diphtheria, tetanus toxoids and acellular pertussis vaccine, unspecified formulation Shefali Koehlerpfer AUTO EMISSIONS TECHNICIAN Work Phone: [facility] 09-19-1996 hepatitis B vaccine, pediatric or pediatric/adolescent dosage Shefalitomasz Koehlerpfer AUTO EMISSIONS TECHNICIAN Work Phone: [facility] 09-19-1996 measles, mumps and rubella virus vaccine Shefalitomasz Koehlerpfer AUTO EMISSIONS TECHNICIAN Work Phone: [facility] 09-19-1996 trivalent poliovirus vaccine, live, oral Shefalitomasz Koehlerdemetrice AUTO EMISSIONS TECHNICIAN Work Phone: [facility] 08-05-1995 hepatitis B vaccine, pediatric or pediatric/adolescent dosage Shefali Calvillo AUTO EMISSIONS TECHNICIAN Work Phone: [facility] 06-05-1995 hepatitis B vaccine, adult dosage Shefali Calvillo AUTO EMISSIONS TECHNICIAN Work Phone: [facility] 10-20-1992 diphtheria, tetanus toxoids and acellular pertussis vaccine, unspecified formulation Shefali Calvillo AUTO EMISSIONS TECHNICIAN Work Phone: [facility] 10-20-1992 trivalent poliovirus vaccine, live, oral Shefali Calvillo AUTO EMISSIONS TECHNICIAN Work Phone: [facility] 07-02-1992 haemophilus influenz ae type b vaccine, conjugate unspecified formulation Shefali Calvillo AUTO EMISSIONS TECHNICIAN Work Phone: [facility] 07-02-1992 measles, mumps and rubella virus vaccine Shefali Gordonfer AUTO EMISSIONS TECHNICIAN Work Phone: [facility] 1991 diphtheria, tetanus toxoids and pertussis vaccine Shefali Calvillo AUTO EMISSIONS TECHNICIAN Work Phone: [facility] 1991 haemophilus influenz ae type b vaccine, conjugate unspecified formulation Shefali Calvillo AUTO EMISSIONS TECHNICIAN Work Phone: [facility] 1991 diphtheria, tetanus toxoids and pertussis vaccine Shefali Calvillo AUTO EMISSIONS TECHNICIAN Work Phone: [facility] 1991 haemophilus influenz ae type b vaccine, conjugate unspecified formulation Shefali Calvillo AUTO EMISSIONS TECHNICIAN Work Phone: [facility] 1991 trivalent poliovirus vaccine, live, oral Shefali Calvillo AUTO EMISSIONS TECHNICIAN Work Phone: [facility] 1991 diphtheria, tetanus toxoids and pertussis vaccine Shefali Koehlerpfer AUTO EMISSIONS TECHNICIAN Work Phone: [facility] 1991 haemophilus influenz ae type b vaccine, conjugate unspecified formulation Shefali Koehlerpfer AUTO EMISSIONS TECHNICIAN Work Phone: [facility] 1991 trivalent poliovirus vaccine, live, oral Shefali Koehlerpfer AUTO EMISSIONS TECHNICIAN Work Phone: [facility] Payers Date Payer Category Payer Medicaid [id number] 2023 Medicaid [id number] 2023 Private Health Insurance [employer] Member Subscriber Plan / Payer (Effective 2023-Present) Name: Ann-Marie López Relation to Subscriber: Self Name: Ann-Marie López Payer ID: Not on file Type: Not on file Address: [place] [id number] 2023 Medicaid [id number] 2023 Unknown [id number] 2023 Self-pay [id number] 1991 Unknown [id number] 2.840.1.344986.3.579.2. 593 1991 Unknown [id number] .840.1.919001.3.579.2. 593 1991 Unknown [id number] 2.840.1.770750.3.579.2. 593 1991 Unknown [id number] 2.840.1.655251.3.579.2. 593 1991 Unknown [id number] 2.16840.1.501332.3.579.2. 593 1991 Unknown [id number] 2.16840.1.456223.3.579.2. 593 1991 Unknown [id number] 2.16840.1.130872.3.579.2. 593 1991 Unknown [id number] 2.16840.1.543937.3.579.2. 593 1991 Unknown [id number] 2.16.840.1.544848.3.579.2. 593 1991 Unknown [id number] 2.16.840.1.312709.3.579.2. 593 1991 Unknown [id number] 2.16.840.1.568969.3.579.2. 593 1991 Unknown [id number] 2.16.840.1.036994.3.579.2. 1286 1991 Unknown [id number] 2.16.840.1.500272.3.579.2. 1259 1991 Unknown [id number] 2.16.840.1.166787.3.579.2. 1259 1991 Unknown [id number] 2.16.840.1.710479.3.579.2. 1259 1991 Unknown [id number] 2.16.840.1.525454.3.579.2. 1259 1991 Unknown [id number] 2.16.840.1.748974.3.579.2. 1259 1991 Unknown [id number] 2.16.840.1.457931.3.579.2. 1259 1959 Unknown [id number] Unknown [id number] 2.16.840.1.334023.19 Unknown [id number] 2.16.840.1.144866.3.579.2. 531 Unknown [id number] 2.16.840.1.395988.3.579.2. 531 Worker's Compensation Social History Date Type Detail Facility Start: 10-05-2022 End: 07-19-2024 [facility] [employer] Other Tobacco smoking status VAIS Tobacco smoking consumption unknown [facility] [email or web address] Phone: Start: 1990 Sex Assigned At Not on file B ON [email or web address] Phone: Start: 09-18-2016 End: 10-05-2022 Tobacco smoking status NHIS Never smoked tobacco (finding) [facility] Start: 1990 Sex Assigned At Female F [facility] Start: 10-05-2022 Tobacco use and exposure Smokeless tobacco non-user [facility] Start: 10-05-2022 End: 08-06-2024 Alcoholic beverage intake Lifetime non-drinker (finding) [facility] Start: 10-05-2022 End: 07-19-2024 History of Social function [facility] Start: 10-05-2022 Alcohol Comment Caffeine: none [facility] Start: 07-19-2024 Alcohol Comment Caffeine: 1-2 weekly [facility] Clinical Notes 04-29-2021 to 08-06-2024 Comfort Lopez LPN - 08/06/2024 8:40 AM EDVirgilio Lopez LPN - 07/24/2024 9:30 AM Kay Hinojosa MD - 07/19/2024 11:30 AM EDTTelephone Encounter - Jerome Cerna - 07/06/2024 1:12 PM EDT Note Date & Type Note Facility 08-06-2024 History of Presen t illness Narrative Reason [...] 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 Exam conducted with a c python developer present. Vitals: Estimated body mass index is 38.91 kg/m as calculated from the following: Height [...] HGSIL on pap smear and has a strong family history of cancer. Discussed LEEP and endometrial [...] reviewed, and patient is to proceed to [facility] OR. Follow Up: Patient is to follow up between 1-2 weeks post op to assess proper healing and recovery from procedure. 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 Exam conducted with a c python developer present. Vitals: Estimated body mass index is [...] Sukhjinder Newman DO documented in this encounter [facility] 07-19-2024 History of Presen t illness Narrative [...] salads with grilled chicken, light ranch or Micronesian dressing, and occasional rice. She maintains a [...] Surgical History: Procedure Laterality Date COLPOSCOPY 2017 [facility]- high risk HPV LIPOSUCTION 2022 OTHER SURGICAL [...] follow-ups on file. documented in this encounter [facility] 07-06-2024 Telephone encount er Note Hi, my [...] to follow up with my primary care drIvette because of the prior author, the information [...] give me a call. Back my numbers. [phone]. Thanks so much, sp snowden *does she need an appt ?? [facility] 07-06-2024 Miscellaneous Notes Formattin g of this [...] to follow up with my primary care drIvette because of the prior author, the information [...] give me a call. Back my numbers. [phone]. Thanks so much, sp snowden *does she need an appt ?? documented in this encounter [facility] 07-03-2024 History of Presen t illness Narrative Reason for Appointment: Patient ID: Ann-Marie López is a 34 y.o. female who presents for Well Women Visit and encounter for weight management [...] carrier in second trimester, antepartum 06/23/2018 Depression ([facility]) 12/01/2023 General counseling and advice for contraceptive management 12/01/2023 Heavy menstrual bleeding 12/01/2023 High risk sexual behavior 12/01/2023 Intractable migraine with aura without status migrainosus ([facility]) 12/01/2023 Irregular periods 12/01/2023 Leukocytes in urine [...] nursing note reviewed. Exam conducted with a c python developer present. Vitals: Estimated body mass index is [...] behalf of:melissa ochoa documented in this encounter [facility] 06-07-2024 History of Presen t illness Narrative [...] carrier in second trimester, antepartum 06/23/2018 Depression ([facility]) 12/01/2023 General counseling and advice for contraceptive management 12/01/2023 Heavy menstrual bleeding 12/01/2023 High risk sexual behavior 12/01/2023 Intractable migraine with aura without status migrainosus ([facility]) 12/01/2023 Irregular periods 12/01/2023 Leukocytes in urine [...] nursing note reviewed. Exam conducted with a c python developer present. Vitals: Estimated body mass index is [...] by Yaneth Qureshi LPN on behalf of: Sukhjnider Newman DO documented in this encounter [facility] 12-01-2023 History of Presen t illness Narrative [...] Past Medical History: Diagnosis Date Allergies Asthma ([facility]) History of being hospitalized Childbirth: 02/2011, 02/2013, [...] Patient voiced understanding. documented in this encounter [facility] 01-27-2022 Evaluation note Encounter Date Diagnosis Assessment [...] (suspected) exposure to covid-19 (ICD-10 - Z20.822) [facility] Other 03-23-2022 Evaluation note* Encounter Date Diagnosis [...] days. Apr, Hematuria, unspecified (ICD-10 - R31.9) [facility] Other Evaluation noteNo assessment information available [facility] Work Phone: Evaluation note* Diagnosis Acute cough- Primary Acute bronchitis, unspecified organism [facility] Diagnosis PCOS (polycystic ovarian syndrome) Polycystic ovaries Encounter for weight management Menorrhagia with irregular cycle [facility] Diagnosis Well woman exam with routine gynecological exam Routine gynecological examination Encounter for weight management documented [facility] Diagnosis Pre-diabetes- Primary Other abnormal glucose Other depression documented in this encounter [facility]* Diagnosis LGSIL on Pap smear of cervix High risk human papillomavirus (HPV) DNA test positive documented in this encounter [facility] note* Diagnosis Encounter to discuss procedure LGSIL on Pap smear of cervix Menorrhagia with irregular cycle HGSIL (high grade squamous intraepithelial lesion) on Pap smear of cervix documented [facility] this encounter [facility] Narrative - Reported* Type Description Date Surgical History salpingectomy Hospitalization History childbirth [facility] Other Summary Purpose Family History No Family History Records Found Relationship Condition Age at Onset Recorded Date/T loan father Hypertension Unknown mother Diabetes mellitus Unknown Advance Directives No Advanced Directives Records Found Advance Directive Response Recorded Date/ Time Advance Directives No July 17 7:35am Chief Complaint and Reason for Visit Chief Complaint [facility] pillars Additional Source Comments INFORMATION SOURCE (unrecogn ized section and content) DATE CREATED AUTHOR 06/04/2019 [facility] DATE CREATED AUTHOR AUTHOR'S ORGANIZ ATION 04/09/2022 [facility] DATE CREATED AUTHOR AUTHOR'S ORGANIZ ATION 08/13/2023 [facility] DATE CREATED AUTHOR AUTHOR'S ORGANIZ ATION 07/30/2024 [facility] DATE CREATED AUTHOR AUTHOR'S ORGANIZ ATION 08/06/2024 [facility] Specialists EPIC REASON FOR VISIT (unrecogniz [...] calorie counting. Reason Comments Abnormal Pap Smear Reason Comments Discuss procedure Care Teams (unrecognized sec tion and content) Team Status: Active Member Role Status Dates PHYSICIAN NO FAMILY Primary Care Provider Active Team Status: Inactive Member Role Status Dates PHYSICIAN NO FAMILY Primary Care Provider Active Start: September 09, 2023 End: September 09, 2023 Cecilia Sutton APRN Attending Provider Active Start: September 09, 2023 End: September 09, 2023 It Training Specialist Relationship Specialty Start Date End Date Riya Hinojosa MD [address] [facility] [place] [address] PCP - General Family Medicine 06/15/22 It Training Specialist Relationship Specialty Start Date End Date Riya Hinojosa MD [address] [facility] [place] [address] PCP - General Family Medicine 06/15/22 It Training Specialist Relationship Specialty Start Date End Date Riya Hinojosa MD [address] [facility] [place] [address] PCP - General Family Medicine 06/15/22 Noemi Gannon PCP - [facility] [employer] 02/08/24 It Training Specialist Relationship Specialty Start Date End Date Riya Hinojosa MD [address] [facility] [place] [address] PCP - General Family Medicine 06/15/22 Noemi Gannon PCP - [facility] [employer] 02/08/24 It Training Specialist Relationship Specialty Start Date End Date Riya Hinojosa MD [address] [place] [address] PCP - General Family Medicine 06/15/22 Krkiera, Noemi PCP - [facility] [place] [facility] 02/08/24 It Training Specialist Relationship Specialty Start Date End Date Riya Hinojosa MD [address] [place] [address] PCP - General Family Medicine 06/15/22 Krkiera, Noemi PCP - [facility] [place] [facility] 02/08/24 It Training Specialist Relationship Specialty Start Date End Date Riya Hinojosa MD [address] [place] [address] PCP - General Family Medicine 06/15/22 Krkiera Noemi PCP - [facility] [place] [facility] 02/08/24 It Training Specialist Relationship Specialty Start Date End Date Riya Hinojosa MD [address] [place] [address] PCP - General Family Medicine 06/15/22 Jagdeep Noemi PCP - [facility] [place] [facility] 02/08/24 It Training Specialist Relationship Specialty Start Date End Date Riya Hinojosa MD [address] [place] [address] PCP - General Family Medicine 06/15/22 Krkiera Noemi PCP - [facility] [place] [facility] 02/08/24 It Training Specialist Relationship Specialty Start Date End Date Riya Hinojosa MD [address] [place] [address] PCP - General Family Medicine 06/15/22 Noemi Gannon PCP - [facility] 02/08/24 Goals (unrecognized section and content) [...] BE BASED ON THE PRIMARY CLINICAL RECORDS. [employer] provides no warranty or guarantee of the accuracy or completeness of information in this document.
[2024-08-17] MEDS: IODINE/POTASSIUM IODIDE 8 ML SOLUTION TOPICAL (12:18)
[2024-08-17] MEDS: FERRIC SUBSULFATE 8 ML SOLUTION TOPICAL (12:18)
--- NOTE | 2024-08-17 12:27 | PM.ONB ---
Brief Operative Note Date of procedure: 08/17/24 Pre-op diagnosis general: cervical dysplasia, menorrhagia, Post-op diagnosis: same as pre-op Procedure: NAME OF PROCEDURE: [ ] Divya endometrial ablation with hysteroscopy, embx, leep PROCEDURE: The patient was taken back to the OR where she was prepped and draped in the normal sterile fashion after being placed in the dorsal lithotomy position, after being placed under general anesthesia without difficulty.? A weighted speculum was placed into the vagina. The anterior lip was grasped with a single tooth tenaculum. Endometrial bx was performed prior to ablation using a pipette The patient was then sounded to approximated 8cm. The patient?s cervix was gently dilated using hegardilators. The hysteroscope was passed through the cervix into the uterus where both ostia were seen. No gross evidence of polyps, fibroids or malignancy. The cervical length was noted to be 4 cm. The total cavity length is 4cm.? The Divya ablation apparatus was set to approximately 4cm in length. This was placed through the cervix and into the uterus. After the seal was tested, at that time the total ablation of 120 seconds was performed with the Divya without difficulty. The patient's cervix was then copiously irrigated using vinegar.? Then, a Lugol Solution was also placed onto the patient's cervix which demonstrated increased uptake of the Lugol solution at the [?3 ] o?clock and [9? ] o?clock positions.? At that time, the LEEP portion of the procedure was performed, including both the [? 3] o?clock and [9? ] o?clock positions. The ectocervix was sent out to Pathology. The patient's cervix was then coagulated using suction cautery. Excellent hemostasis was assured.? Monsel Solution was then placed onto the patient's cervix to help maintain adequate hemostasis. All instruments were removed from the patient's vagina. The anterior lip of the cervix demonstrated excellent hemostasis.? The patient tolerated the procedure well. Sponge, lap, and needle counts were correct x 2. The patient was taken to Recovery Room in stable condition. Anesthesia: MAC Surgeon: Sukhjinder Newman Estimated blood loss (mL): 20 Pathology: other (ectocervical tissue and endometrial currettings) Condition: stable Disposition: PACU Urinary Catheter Management Urinary Catheter Management Straight: Cath placed during this visit: no
[2024-08-17] MEDS: HYDROCODONE/ACET 5-325 MG TABLET 1 TAB PO (12:51)
--- NOTE | 2024-08-17 14:15 | PC.NURSE ---
Patients peripad remained dry through out all of Phase 2 recovery. Patient voided without issue prior to discharge.
== END 2024-08-17 14:05 | disposition home or self-care (01) ==
LOC: SURGOUT 07:59
PROVIDERS: PCP Family Medicine; Visit Provider Obstetrics & Gynecology
PROC: (CPT 940; principal; 2024-08-17 09:15)
DX: N92.0 Excessive and frequent menstruation with regular cycle (principal); N93.9 Abnormal uterine and vaginal bleeding, unspecified; R10.2 Pelvic and perineal pain; R87.612 Low grade squamous intraepithelial lesion on cytologic smear of cervix (LGSIL); R87.89 Other abnormal findings in specimens from female genital organs; Z98.51 Tubal ligation status; E28.2 Polycystic ovarian syndrome; F41.9 Anxiety disorder, unspecified; F32.A Depression, unspecified
CPT/HCPCS: 57522; 58563; 36415; 82948; 84702; 85025; 88305; 88307; J1100; J1885; J2250; J2405; J2704; J3010